=== PATIENT | male | born 1955 | race Caucasian/White ===

== ENCOUNTER 2020-11-28 13:33 | Inpatient (IN) | payer MEDICAID ==
[~2020-11-28] VITALS: Ht 167.6 cm; Wt 68.0 kg
--- NOTE | 2020-11-28 13:51 | NUR ---
pt [facility]ra from the streets to er bed 14. bystander called for pt. per ems report, pt was staying outside a stablishment for the past 5 days. today patient was c/o eing weak and unable to get up. pt also c/o l foot pain s/p droping a can of chilli to it. bg is 107 port captain and w/ stable vitals. awaiting md willson.
--- NOTE | 2020-11-28 14:30 | NUR ---
Pt states "Dropped a can of chili on my foot last night. Hurts/not able to walk on it". Asking for food and water- OK'd by
--- NOTE | 2020-11-28 14:35 | NUR ---
dr camarillo at bedside for eval.
--- NOTE | 2020-11-28 15:49 | NUR ---
labour market economist at bedside for blood draw.
[2020-11-28 15:55] LABS: BASOPHILS # (AUTO) 0.1 /CMM (0.0-0.2); BASOPHILS % (AUTO) 0.6 % (0.0-2.0); HEMATOCRIT 40 % (39-51); HEMOGLOBIN 12.8 g/dL (13.5-17.5); LYMPHOCYTES # (AUTO) 0.6 /CMM (0.8-4.8); LYMPHOCYTES % (AUTO) 2.8 % (20.0-44.0); MEAN CORPUSCULAR HGB CONC 32 g/dl (31.0-36.0); MEAN CORPUSCULAR VOLUME 92 fL (80-96); MONOCYTES # (AUTO) 0.7 /CMM (0.1-1.30); MONOCYTES % (AUTO) 3.3 % (2.0-12.0); NEUTROPHILS # (AUTO) 21.1 /CMM (1.8-8.9); NEUTROPHILS % (AUTO) 93.3 % (43.0-81.0); PLATELET COUNT (AUTO) 76 /CMM (150-450); RED BLOOD CELL COUNT(AUTO) 4.35 MIL/uL (4.5-6.0); WHITE BLOOD COUNT (AUTO) 22.6 K/uL (4.3-11.0)
[2020-11-28 16:16] LABS: CALCIUM, SERUM 7.4 mg/dL (8.5-10.1); CREATININE 5.5 mg/dL (0.6-1.3)
--- NOTE | 2020-11-28 16:56 | NUR ---
unable to provide urine sample at this time. urinal left at bedside.
[2020-11-28] MEDS ORDERED: IV NS 0.9% 1,000 ML BAG IV ONE (17:00)
--- NOTE | 2020-11-28 17:00 | NUR ---
Covid negative Per Lab personnel
[2020-11-28 17:11] LABS: ALANINE AMINOTRANSFERASE 1110 U/L (12-78); ALBUMIN 2.4 g/dL (3.4-5.0); ALKALINE PHOSPHATASE 230 U/L (46-116); ASPARTATE AMINOTRANSFERASE 613 U/L (15-37); BILIRUBIN,DIRECT 0.8 mg/dL (0.0-0.2); BILIRUBIN,TOTAL 1.2 mg/dL (0.2-1.0); CALCIUM, SERUM 7.4 mg/dL (8.5-10.1); CARBON DIOXIDE 15 mmol/L (21-32); CHLORIDE 101 mmol/L (98-107); CREATININE 5.5 mg/dL (0.6-1.3); GLUCOSE 110 mg/dL (74-106); SODIUM SERUM 134 mmol/L (136-145); TOTAL PROTEIN, SERUM 6.4 g/dL (6.4-8.2)
[2020-11-28 17:15] LABS: POTASSIUM 6.2 mmol/L (3.5-5.1); UREA NITROGEN, BLOOD 170 mg/dL (7-18)
--- NOTE | 2020-11-28 17:28 | NUR ---
CALLED NURSING SUP FOR TELE BED.
[2020-11-28] MEDS ORDERED: VANCOMYCIN 1 GM in IV D5W 250 ML IV ONE (17:30)
[2020-11-28] MEDS ORDERED: CEFEPIME 1 GM in IV D5W 50 ML IV ONE (17:30)
--- NOTE | 2020-11-28 18:12 | NUR ---
NURSING SUP GAVE 115-1 TELE.
[2020-11-28 18:19] LABS: BILIRUBIN,URINE Negative (NEGATIVE); COLOR,URINE DARK YELLOW (YELLOW); LEUKOCYTE ESTERASE ,URINE Negative (NEGATIVE); NITRITE, URINE Negative (NEGATIVE); PH,URINE 5.5 (5.0-8.0); PROTEIN,URINE 100 mg/dl (NEGATIVE); UGLUCOSE Negative (NEGATIVE); UROBILINOGEN,URINE 0.2 EU/dL (0.2)
--- NOTE | 2020-11-28 18:23 | NUR ---
report given to markus munoz. awaiting transfer to floor.
[2020-11-28 18:34] LABS: BACTERIA,URINE Few /HPF (None Seen); SQUAMOUS EPITHELIAL CELL,UR Few /HPF (None Seen); URINE AMORPHOUS URATE Moderate /HPF (None Seen)
[2020-11-28] MEDS ORDERED: IV NS 0.9% 100 ML BAG IV ONE (19:00)
[2020-11-28] MEDS ORDERED: INSULIN REGULAR, HUMAN 100 UNIT/ML 10 ML VIAL ONE (19:28)
[2020-11-28] MEDS ORDERED: DEXTROSE 50%-WATER 50 ML DISP.SYRIN ONE (19:28)
[2020-11-28] MEDS ORDERED: DEXTROSE 50%-WATER 50 ML DISP.SYRIN IV ONE (19:30)
[2020-11-28] MEDS ORDERED: HEPARIN INFUSION/D5W 500 ML IV ONE (19:30)
[2020-11-28] MEDS ORDERED: INSULIN REGULAR, HUMAN 100 UNIT/ML 10 ML VIAL IV ONE (19:30)
[2020-11-28] MEDS ORDERED: SODIUM POLYSTYRENE SULFONATE 15 G/60 ML BOTTLE PO ONE ×2 (19:30→22:00)
--- NOTE | 2020-11-28 19:50 | NUR ---
RN OPENING NOTE RECEIVED PT FROM BECKY, FROM ER. PT IS A/O X 1-2 VERY CONFUSED AND FORGETFUL, SOMEWHAT DROWSY. PT NEEDS TO BE REMINDED AND REORIENTED. PT O2 SAT UPON ADMISSION LOW IN 85-88, PLACED ON NC. O2 SAT NOW 92. IV SITES BOTH FLUSHED ASEPTICALLY. SKIN INTACT. PT SAYS LEFT FOOT HURTS, DOES NOT REQUEST ANY MEDICATION OR ICE, AT THIS TIME JUST TO LEAVE IT ALONE. SAFETY MEASURES IN PLACE. HOB ELEVATED BED LOCKED IN LOWEST POSITION WITH ALARM ON. SIDE RAILS UP X2 CALL LIGHT WITHIN REACH. WILL CONT TO MONITOR
[2020-11-28 20:00] VITALS: BP_SYST 134; BP_SYST 141; BP_DIAS 88; BP_DIAS 89
[2020-11-28 20:42] LABS: C-REACTIVE PROTEIN 14.3 mg/dL (0.0-0.9)
[2020-11-28] MEDS ORDERED: HEPARIN SODIUM, PORCINE 5000 UNITS/1 ML VIAL IV ONE (21:30)
--- NOTE | 2020-11-28 21:30 | NUR ---
2130 CRITICAL LACTIC ACID 3.[address] HARPER WITH ORDERS TO REPEAT TEST IN AM. DR HARPER ALSO ORDERED AM LABS. ORDER NOTED AND CARRIED OUT.
[2020-11-28] MEDS: ASPIRIN 81 MG TAB.CHEW PO SCH (21:52)
[2020-11-28] MEDS: HEPARIN INFUSION/D5W 500 ML IV PRN (21:58)
[2020-11-28] MEDS ORDERED: MAG HYDROX/AL HYDROX/SIMETH 30 ML UDC PO PRN (22:00)
[2020-11-28] MEDS ORDERED: ACETAMINOPHEN 325 MG TABLET PO PRN (22:00)
[2020-11-28] MEDS ORDERED: MORPHINE SULFATE INJ 2 MG/ML DISP.SYRIN IV PRN (22:00)
--- NOTE | 2020-11-28 23:00 | NUR ---
PT PULLING OFF NASAL CANNULA AND ATTEMPTING TO PULL IV LINES/EQUIPMENT DESPITE REORIENTATION HIDING LINES EDUCATION. SOFT RONEN WRIST RESTRAINTS APPLIED, MD HARPER AWARE. WILL CONT TO MONITOR CLOSELY. ENAMORADO CATH PLACED USING STERILE TECHNIQUE, PER MEREDITH STRICT I/O MONITORING IN PLACE.
--- NOTE | 2020-11-28 23:01 | NUR ---
PT WAS PREVIOUSLY GIVEN INSULIN AND D50 FOR HYPERKALEMIA, RECHECK ON BLOOD SUGAR IS 160 AT THIS TIME WILL CONT TO MONITOR
[2020-11-29] VITALS: BP 123/95
[2020-11-29 00:13] LABS: EOSINOPHILS % (AUTO) 9.8 % (0.0-6.0); HEMATOCRIT 39 % (39-51); HEMOGLOBIN 12.1 g/dL (13.5-17.5); LYMPHOCYTES # (AUTO) 0.6 /CMM (0.8-4.8); LYMPHOCYTES % (AUTO) 2.7 % (20.0-44.0); MEAN CORPUSCULAR HGB CONC 32 g/dl (31.0-36.0); MEAN CORPUSCULAR VOLUME 91 fL (80-96); MONOCYTES # (AUTO) 19.2 /CMM (0.1-1.30); MONOCYTES % (AUTO) 85.9 % (2.0-12.0); NEUTROPHILS # (AUTO) 0.4 /CMM (1.8-8.9); NEUTROPHILS % (AUTO) 1.6 % (43.0-81.0); PLATELET COUNT (AUTO) 83 /CMM (150-450); RED BLOOD CELL COUNT(AUTO) 4.22 MIL/uL (4.5-6.0); WHITE BLOOD COUNT (AUTO) 22.3 K/uL (4.3-11.0)
[2020-11-29 04:00] VITALS: BP 111/86
[2020-11-29 04:08] LABS: BASOPHILS # (AUTO) 0.3 /CMM (0.0-0.2); BASOPHILS % (AUTO) 1.3 % (0.0-2.0); EOSINOPHILS % (AUTO) 0.1 % (0.0-6.0); HEMATOCRIT 36 % (39-51); HEMOGLOBIN 11.6 g/dL (13.5-17.5); LYMPHOCYTES # (AUTO) 0.6 /CMM (0.8-4.8); LYMPHOCYTES % (AUTO) 2.8 % (20.0-44.0); MEAN CORPUSCULAR HGB CONC 33 g/dl (31.0-36.0); MEAN CORPUSCULAR VOLUME 89 fL (80-96); MONOCYTES # (AUTO) 1.1 /CMM (0.1-1.30); MONOCYTES % (AUTO) 5.1 % (2.0-12.0); NEUTROPHILS # (AUTO) 18.6 /CMM (1.8-8.9); NEUTROPHILS % (AUTO) 90.7 % (43.0-81.0); PLATELET COUNT (AUTO) 91 /CMM (150-450); WHITE BLOOD COUNT (AUTO) 20.5 K/uL (4.3-11.0)
[2020-11-29 04:30] LABS: LYMPHOCYTES % (MANUAL) 3 % (16-48); MONOCYTES % (MANUAL) 6 % (0-11.0); NEUTROPHILS % (MANUAL) 91 (42-76)
[2020-11-29 04:38] LABS: ALBUMIN 2.1 g/dL (3.4-5.0); BILIRUBIN,DIRECT 0.5 mg/dL (0.0-0.2); BILIRUBIN,TOTAL 0.9 mg/dL (0.2-1.0); CALCIUM, SERUM 6.9 mg/dL (8.5-10.1); CREATININE 5.8 mg/dL (0.6-1.3); MAGNESIUM 3.1 mg/dL (1.8-2.4); POTASSIUM 5.6 mmol/L (3.5-5.1); TOTAL PROTEIN, SERUM 5.7 g/dL (6.4-8.2)
[2020-11-29 04:40] LABS: PHOSPHORUS 9.7 mg/dL (2.5-4.9); THYROID STIMULATING HORMONE 5.256 uIU/mL (0.358-3.74)
--- NOTE | 2020-11-29 04:50 | NUR ---
0450 CRITICAL LACTIC 2.1, TROPONIN 10.16, BUN 166, AND PHOSPHORUS 9.[address] HARPER WITH NO ORDER OBTAINED.
[2020-11-29] MEDS: IV NS 0.9% 1,000 ML IV PRN ×3 (05:09→23:09)
--- NOTE | 2020-11-29 06:35 | NUR ---
RN CLOSING NOTES PT DID NOT REST WELL THROUGHOUT THE NIGHT. C/O HUNGER AND THIRST ALTHOUGH PLACED ON NPO EXCEPT MEDS. EDUCATION PT MULTIPLE TIMES, BUT CONFUSED AND FORGETS. PT IS ON ROOM AIR SATURATING AT 96%. NO SOB OR RESP DISTRESS NOTED. PT ON HEPARIN DRIP 985 UNITS/HR. TITRATING ODELL ACS PROTOCOL. ALSO ON IVF NS STILL AT 125CC/HR. MINIMAL PINK TINGED URINE STARTED TOWARDS END OF SHIFT, NOTIFIED CHARGE, WILL ENDORSE TO AM NURSE. PT DENIES PAIN. SAFETY MEASURES IN PLACE., HOB ELEVATED BED LOCKED IN LOWEST POSITION WITH ALARM ON. SIDE RAILS UP X2 CALL LIGHT WITHIN REACH. WILL ENDORSE TO DAY SHIFT NURSE FOR CONTINUATION OF CARE. Addendum: 11/29/20 at 0642 by STAR SMITH RN PT STILL HAS SOFT RONEN WRIST RESTRAINTS ON CIRCULATION CHECKED SKIN CHECKED Addendum: 11/29/20 at 0652 by STAR SMITH RN PT AFEBRILE. STILL HAS SOFT RONEN WRIST RESTRAINTS SKIN AND CIRCULATION CHECKED.
--- NOTE | 2020-11-29 07:50 | NUR ---
RN OPENING NOTE PATIENT IS IN BED WITH HOB AT SEMI FOWLERS POSITION. PATIENT IS AOX2. PATIENT IS CURRENTLY ON ROOM AIR WITH NO SIGNS OF LABORED BREATHING. ENAMORADO CATHETER IS IN PLACE. SKIN IS INTACT. LAC #18 AND RAC #18 ARE PATENT, INTACT, AND HAVE NO SIGNS OF INFILTRATION. BED IS LOCKED IN THE LOWEST POSITION, CALL PALMER WITHIN REACH, 3 GUARD RAILS RAISED, AND ALL HOSPITAL SAFETY PRECAUTIONS ARE BEING FOLLOWED. WILL CONTINUE TO MONITOR THROUGHOUT SHIFT.
[2020-11-29 08:00] VITALS: BP 114/90
[2020-11-29] MEDS: PANTOPRAZOLE 40 MG TABLET.DR PO SCH (08:02)
[2020-11-29] MEDS: ASPIRIN 81 MG TAB.CHEW PO SCH (08:02)
[2020-11-29] MEDS ORDERED: ASPIRIN EC 81 MG TABLET.DR PO SCH (09:00)
--- NOTE | 2020-11-29 11:00 | NUR ---
STREET CAR MECHANIC NOTE INCREASED O2 TO 6L DUE TO SATURATION IN MID 80S. WILL CONTINUE TO MONITOR.
[2020-11-29] MEDS ORDERED: SODIUM POLYSTYRENE SULFONATE 15 G/60 ML BOTTLE PO ONE (11:30)
[2020-11-29 12:00] VITALS: BP 129/94
--- NOTE | 2020-11-29 12:02 | NUR ---
HAND BOOTMAKER NOTE DECREASED O2 TO 3L NC. SATURATION CURRENTLY AT 95%. WILL CONTINUE TO MONITOR.
--- NOTE | 2020-11-29 12:43 | NUR ---
"SS consult requested for homelessness. However, the pt.'s Covid PCR results pending. SW spoke to the pt.'s nurse, who stated that pt. most likely will not be discharged today. SW will follow up at a later time to assess pt. SW left homeless waiver & he following homeless resources in the pt.'s chart. Resources provided include: Substance Abuse resources provided included: [facility] Substance Abuse Self-Helpline ([facility]) ; CRI -HELP [address] [facility]. [place] [id number] ; [facility] [address] [facility] [address] ; [facility] [address] [facility] [id number] ; [facility] [address] [facility] [address] ; [facility] [address] Armani Aval[facility] [address] ; [facility] 906 [facility] [id number] ; [facility] Substance Abuse Helpline([facility])-[facility] ; [facility] ; [facility]; [facility] [place]; [facility] Armani Avalos; [facility] [place]; Mill[facility] Bridg[facility] [place]; [facility]; [facility], [facility]. [place]; Alcoholics Anonymous -SFV; Uj-Igia-Jkltier ; Marijuana Anonymous -SFV; Narcotics Anonymous www.na.org; Year-round shelters: [facility] [address] [place] [address] ; [facility] [place] [address] [place] [address]; [facility] [address] [facility] [address] Winter Shelters: Jayesh Carpenter [place] Provider: Kemi [facility] [place] Address: [address] [place], [address] # of Beds: 47 Population Served: [facility] [place] 6 | [facility] Melissa Nguyen [place] Provider: [facility] Address: [address], [address] # of Beds: 66 Population Served: [facility] [place] [facility] [place] Jumpido [place] Provider: First to Serve Address: [address] [facility], [address] # of Beds: 56 Population Served: [facility] [place] [facility] [place] Avtar [place] Provider: [facility] Address: [address] [place] [address], [address] # of Beds: 49 Population Served: [facility] [place] [facility] 8 | [facility] Provider: First to Serve Address: [address] [facility], [address] # of Beds: 37 Population Served: [facility] [place] [facility] [place] Hygiene: [facility]: [address] [address] kerryS[facility] ; [place] [facility] [address] [facility] ; [facility] [address] [facility] . Food Resources: [place] [facility] at [facility]- [address] [facility] [place]. [place]; Meet Each Need with Dignity ([facility]) [address] [address] [place]; [facility] [address] [facility]; [facility] 4588 [facility] [place]. Mental Health resources provided: [facility] [address] [place] [address] ; [facility] [address] [facility] [address], [place] [address] ; [facility] [address] [place] [address] ; [facility] [address] [place] [address] Healthcare Clinics: [facility] [address] [facility], [address] [place]. [place] ; [facility] [address] [facility] [address] [place] [address]; [facility] [address] [facility] [address] [phone]"
--- NOTE | 2020-11-29 13:00 | NUR ---
LUGGAGE REPAIRER NOTE HEPARIN DRIP RATE INCREASED TO 1100 ML/HR PER PROTOCOL. WILL CONTINUE TO MONITOR.
--- NOTE | 2020-11-29 13:40 | NUR ---
SEAMARK ADVANCED OPERATOR MAINTAINER NOTE PLACED PATIENT ON ROOM AIR. TOLERATING WELL AND SATURATING 95%. WILL CONTINUE TO MONITOR.
[2020-11-29] MEDS: METRONIDAZOLE 500MG/ NS 100ML 500 MG in PREMIX 1 EA IV SCH ×2 (14:51→21:07)
[2020-11-29 16:00] VITALS: BP 129/96
[2020-11-29] MEDS: CEFEPIME 1 GM in IV D5W 50 ML IV SCH (16:23)
--- NOTE | 2020-11-29 18:32 | NUR ---
RN CLOSING NOTE PATIENT IS IN BED WITH HOB AT SEMI FOWLERS POSITION. PATIENT IS AOX2 AND CONFUSED. PATIENT IS ON ROOM AIR WITH NO SIGNS OF LABORED BREATHING. ENAMORADO CATHETER IS IN PLACE. BILATERAL RESTRAINTS ARE APPLIED. LAC#18 AND RAC #20 ARE PATENT, INTACT, AND HAVE NO SIGNS OF INFILTRATION. SKIN IS INTACT. WILL ENDORSE TO COMPOUND FINISHER RN.
[2020-11-29 20:00] VITALS: BP 125/90
[2020-11-29] MEDS: HYDROCODONE/APAP 5/325MG TABLET PO PRN (21:45)
[2020-11-29] MEDS: HEPARIN INFUSION/D5W 500 ML IV PRN (21:48)
[2020-11-29] MEDS: ZOLPIDEM TARTRATE 5 MG TABLET PO PRN (22:41)
[2020-11-30] VITALS: BP 133/94
--- NOTE | 2020-11-30 00:07 | NUR ---
RN NOTE PATIENT A/O X1/2 FORGETFUL AND CONFUSED. RESTLESS AT THIS TIME AND YELLING. TELE MONITOR ON, SR 80'S. NO SOB OR ANY RESPIRATORY DISTRESS. ON ROOM AIR, O2 92%. ENAMORADO CATH INTACT AND DRAINING ROS URINE TO GRAVITY. WITH LAC AND RAC PATENT AND INTACT. ON NS @125 ML/HR AND HEP DRIP 1100 ML/HR. SAFETY MEASURES IN PLACE. WILL CONTINUE TO MONITOR.
[2020-11-30 04:00] VITALS: BP 137/97
[2020-11-30] MEDS: METRONIDAZOLE 500MG/ NS 100ML 500 MG in PREMIX 1 EA IV SCH ×3 (05:07→20:34)
[2020-11-30 06:57] LABS: BASOPHILS % (AUTO) 0.2 % (0.0-2.0); EOSINOPHILS % (AUTO) 0.1 % (0.0-6.0); HEMATOCRIT 37 % (39-51); LYMPHOCYTES # (AUTO) 0.4 /CMM (0.8-4.8); LYMPHOCYTES % (AUTO) 2.3 % (20.0-44.0); MEAN CORPUSCULAR HGB CONC 33 g/dl (31.0-36.0); MEAN CORPUSCULAR VOLUME 90 fL (80-96); MONOCYTES # (AUTO) 0.7 /CMM (0.1-1.30); MONOCYTES % (AUTO) 3.9 % (2.0-12.0); NEUTROPHILS # (AUTO) 17.8 /CMM (1.8-8.9); NEUTROPHILS % (AUTO) 93.5 % (43.0-81.0); PLATELET COUNT (AUTO) 116 /CMM (150-450); RED BLOOD CELL COUNT(AUTO) 4.05 MIL/uL (4.5-6.0); WHITE BLOOD COUNT (AUTO) 19.1 K/uL (4.3-11.0)
[2020-11-30 07:23] LABS: CALCIUM, SERUM 6.3 mg/dL (8.5-10.1); CREATININE 5.4 mg/dL (0.6-1.3)
[2020-11-30 07:26] LABS: FERRITIN 131 ng/mL (8-388)
[2020-11-30 07:34] LABS: CREATINE KINASE, TOTAL 6915 U/L (39-308)
--- NOTE | 2020-11-30 07:36 | NUR ---
ms rn received on bed, awake,very agitated, shouting all the time. patient on heparin drip at 1100units/hour infusing well. denies pain at this time,will monitor patient.
[2020-11-30 07:37] LABS: POTASSIUM 2.7 mmol/L (3.5-5.1)
[2020-11-30] MEDS: HEPARIN INFUSION/D5W 500 ML IV PRN ×2 (07:46→20:14)
--- NOTE | 2020-11-30 07:49 | NUR ---
RN NOTE PATIENT A/O X1/2 FORGETFUL AND CONFUSED. RESTLESS AT THIS TIME AND YELLING. TELE MONITOR ON, SR 80'S. NO SOB OR ANY RESPIRATORY DISTRESS. ON ROOM AIR, O2 90%. ENAMORADO CATH INTACT AND DRAINING ROS URINE TO GRAVITY. WITH LAC AND RAC PATENT AND INTACT. ON NS @125 ML/HR AND HEP DRIP 1200 ML/HR. SAFETY MEASURES IN PLACE. WILL ENDORSE TO ONCOMING SHIFT.
[2020-11-30 08:00] VITALS: BP 144/100
--- NOTE | 2020-11-30 08:00 | NUR ---
ms rn patient yelling so loud, wants to eat at this time, will get diet order, pt still on npo for swallow eval today.
--- NOTE | 2020-11-30 08:17 | NUR ---
patient screaming,i want to eat,speech swallow eval pending.[facility] made aware.per franki ok to start feeding pt.
--- NOTE | 2020-11-30 08:30 | NUR ---
ms rn received a critical level of k-2.7 at this time, franki is aware, want me to call dr. millan for order.
--- NOTE | 2020-11-30 09:00 | NUR ---
ms rn swallow eval done w/ recommendation, patient can eat now.
[2020-11-30] MEDS: PANTOPRAZOLE 40 MG TABLET.DR PO SCH (09:26)
[2020-11-30] MEDS: ASPIRIN 81 MG TAB.CHEW PO SCH (09:26)
[2020-11-30] MEDS: HYDROCODONE/APAP 5/325MG TABLET PO PRN (09:27)
[2020-11-30] MEDS: IV NS 0.9% 1,000 ML IV PRN ×2 (09:27→19:59)
[2020-11-30] MEDS: QUETIAPINE FUMARATE 25 MG TABLET PO SCH ×2 (11:47→17:00)
--- NOTE | 2020-11-30 11:50 | NUR ---
ms rn dr. sanabria ordered k po for patient.
[2020-11-30 12:00] VITALS: BP 110/72
--- NOTE | 2020-11-30 12:00 | NUR ---
ms munoz ptt-48.2-no change at heparin rate, will recheck ptt in am.
--- NOTE | 2020-11-30 12:33 | NUR ---
SW Note: SW called & spoke with DARINEL Nurse. The pt. is not yet medically clear. Per EMR, the pt. is confused A&OX1. Pt. is on Seroquel. SW to assess pt. when he is more oriented. Pt. has yet to provide a point of contact. SW will be available as needed. SW will collaborate with IDT to form a safe & proper discharge plan.
[2020-11-30] MEDS ORDERED: POTASSIUM CHLORIDE 20 MEQ TAB.PRT.SR PO ONE (13:00)
[2020-11-30] MEDS ORDERED: POTASSIUM CHLORIDE 20 MEQ TAB.PRT.SR PO SCH (13:00)
[2020-11-30 16:00] VITALS: BP 109/72
[2020-11-30] MEDS: CEFEPIME 1 GM in IV D5W 50 ML IV SCH (16:40)
[2020-11-30] MEDS ORDERED: VANCOMYCIN 0.75 GM in IV D5W 250 ML IV SCH (18:00)
[2020-11-30] MEDS: VANCOMYCIN 1 GM in IV D5W 250 ML IV SCH (18:51)
--- NOTE | 2020-11-30 19:29 | NUR ---
ms rn on bed, still sleeping, seroquel at 1700 held.
--- NOTE | 2020-11-30 19:30 | NUR ---
RN OPENING NOTE, RECEIVED PATIENT IN BED RESTING EYE CLOSED CONFUSED,VERBALLY RESPONSIVE,ON 3L OXYGEN VIA NASAL CANNULA,O2:95% IV SITE IS ON LEFT AC AND RIGHT AC INTACT PATIENT ON HEPARIN DRIP,AND IV HYDRATION NORMAL SALINE 0.9% 125CC/HR,ENAMORADO CATHETER IN PLACE,URINE DRAINING YELLOW/CLEAR, BED IN LOW POSITION AND LOCKED,SAFETY MEASURE IMPLEMENT,CONTINUE TO MONITOR.
[2020-11-30 20:00] VITALS: BP 109/78
[2020-12-01] VITALS: BP 117/74
[2020-12-01] MEDS: HYDROCODONE/APAP 5/325MG TABLET PO PRN ×2 (02:42→23:41)
[2020-12-01 04:00] VITALS: BP 123/82
[2020-12-01] MEDS: METRONIDAZOLE 500MG/ NS 100ML 500 MG in PREMIX 1 EA IV SCH ×3 (04:36→20:33)
--- NOTE | 2020-12-01 05:17 | NUR ---
RN NOTE RECEIVED CRITICAL LAB RESULTS FROM [facility] CREATINE KINASE CK,MB ON 11/28/20 343.0 AND ON 11/30/[address] MIRANDA CONTINUE TO MONITOR.
--- NOTE | 2020-12-01 05:33 | NUR ---
RN NOTE DR MIRANDA CALLED BACK WITH NO NEW ORDER FOR CRITICAL LAB CREATINE KINASE CK MB, CONTINUE TO MONITOR.
[2020-12-01] MEDS: IV NS 0.9% 1,000 ML IV PRN (06:28)
--- NOTE | 2020-12-01 06:40 | NUR ---
RN CLOSING NOTE PATIENT REMAINS ON ALERT ORIETNEDX2 VERBALLY RESPONSIVE CONFUSED ON 3L OXYGEN VIA NASAL CANNULA, O2:95% CONTINUE ON HEPARIN DRIP AND IV HYDRATION NS 0.9% 125CC/HR IV SITE IS ON LEFT AND RIGHT AC INTACT PATENT,ENAMORADO CATHETER IN PLACE.ALL DUE MEDS GIVEN MD ORDERED KEPT CLEAN AND DRY,KEPT COMFORTABLE ALL NEEDS MET,ENDORSE NEXT COMING SHIFT FOR CONTINUATION OF CARE.
[2020-12-01 06:41] LABS: BASOPHILS # (AUTO) 0.1 /CMM (0.0-0.2); BASOPHILS % (AUTO) 0.4 % (0.0-2.0); EOSINOPHILS % (AUTO) 0.5 % (0.0-6.0); HEMATOCRIT 34 % (39-51); HEMOGLOBIN 11.2 g/dL (13.5-17.5); LYMPHOCYTES # (AUTO) 0.7 /CMM (0.8-4.8); LYMPHOCYTES % (AUTO) 3.6 % (20.0-44.0); MEAN CORPUSCULAR HGB CONC 33 g/dl (31.0-36.0); MEAN CORPUSCULAR VOLUME 90 fL (80-96); MONOCYTES # (AUTO) 1.3 /CMM (0.1-1.30); MONOCYTES % (AUTO) 6.7 % (2.0-12.0); NEUTROPHILS # (AUTO) 17.3 /CMM (1.8-8.9); NEUTROPHILS % (AUTO) 88.8 % (43.0-81.0); PLATELET COUNT (AUTO) 106 /CMM (150-450); RED BLOOD CELL COUNT(AUTO) 3.85 MIL/uL (4.5-6.0); WHITE BLOOD COUNT (AUTO) 19.5 K/uL (4.3-11.0)
[2020-12-01 06:58] LABS: CALCIUM, SERUM 6.2 mg/dL (8.5-10.1); CREATININE 5.5 mg/dL (0.6-1.3)
--- NOTE | 2020-12-01 06:59 | NUR ---
RN NOTE RECEIVED CRITICAL LAB VALUE TROPONINE 4.[address] MIRANDA.
[2020-12-01 07:01] LABS: POTASSIUM 2.7 mmol/L (3.5-5.1)
--- NOTE | 2020-12-01 07:09 | NUR ---
RN NOTE RECEIVED CRITICAL LAB VALUE POTASSIUM LEVEL 2.7 AND BUN IS [address] MIRANDA.
--- NOTE | 2020-12-01 07:30 | NUR ---
PT RECEIVED RESTING COMFORTABLY IN BED. NO S/S OR C/O PAIN OR DISTRESS NOTED. SIDERAILS UP X2, CALL LIGHT LEFT WITHIN REACH. WILL CONTINUE PLAN OF CARE.
[2020-12-01 08:00] VITALS: BP 141/93
--- NOTE | 2020-12-01 08:23 | NUR ---
patient complaining extreme pain on foot,seen and evaluated by wound nurse md parker made aware,no new orders,continue heparin drip and pain meds as ordered.
--- NOTE | 2020-12-01 08:24 | NUR ---
WOUND CARE CONSULT: PT SEEN ON REQUEST OF ENROBER TO EVALUATE LEFT FOOT. PT SCREAMING AND COMPLAINING OF LEFT FOOT PAIN. LEFT DISTAL FOOT IS DISCOLORED (DARK PURPLE) AND EDEMA NOTED. PEDAL PULSE PALPABLE BUT PT CANNOT TOLERATE ANYONE TOUCHING HIS FOOT. PHOTOS WERE TAKEN AND DISCUSSED WITH RONY CHAUDHRY, WHO WAS NOTIFIED BY ENROBER. PT DID NOT TURN FOR FULL SKIN ASSESSMENT. PT AGITATED AND SCREAMING. ENAMORADO CATH NOTED.
--- NOTE | 2020-12-01 08:53 | NUR ---
dr. siegel notified patient abnormal labs lytes ,seen and examined patient.
[2020-12-01] MEDS: ASPIRIN 81 MG TAB.CHEW PO SCH (08:54)
[2020-12-01] MEDS: QUETIAPINE FUMARATE 25 MG TABLET PO SCH ×2 (08:54→16:36)
[2020-12-01] MEDS: PANTOPRAZOLE 40 MG TABLET.DR PO SCH (08:54)
--- NOTE | 2020-12-01 09:25 | NUR ---
PATIENT STILL SCREAMING DESPITE 2MG IVP MORPHINE,STILL COMPLAINING OF SEVERE PAIN LEFT FOOT,RONY CHAUDHRY NOTIFIED AND INCREASE DOSE TO 4MG AND OK TO GIVE NEW DOSE NOW.
[2020-12-01] MEDS ORDERED: MORPHINE SULFATE INJ 4 MG/ML DISP.SYRIN IV PRN (09:30)
[2020-12-01] MEDS: HYDROMORPHONE 1 MG/1 ML DISP.SYRIN IV PRN ×2 (09:45→22:07)
--- NOTE | 2020-12-01 09:48 | NUR ---
PATIENT SCREAMING AND CURSING NURSES USING F WORDS. RONY CHAUDHRY CLIENT STRATEGIST AT BEDSIDE AND GAVE NEW ORDERS TO INCREASE SEROQUEL TO 25MG AND PRN PO ATIVAN IMG Q 8 HRS FOR AGITATION,WILL CONTINUE TO MONITOR PATIENT.EXTRACT WRINGER AT BEDSIDE DOING DOPPLER ORDERED.
--- NOTE | 2020-12-01 09:50 | NUR ---
PER MD HANLEY TO RENEW RESTRAINT FOR SAFETY,PT. TRYING TO REMOVE LINE,WILL CONTINUE TO MONITOR..
[2020-12-01] MEDS: POTASSIUM CHLORIDE 20 MEQ TAB.PRT.SR PO SCH ×5 (10:14→17:36)
--- NOTE | 2020-12-01 10:14 | NUR ---
PT. CALM DOWN POST DILAUDID GIVEN.
--- NOTE | 2020-12-01 10:42 | NUR ---
ULTRASOUND DOPPLER RESULT RELAYED TO RONY CHAUDHRY PT. W/ POSITIVE OCCLUSION.
[2020-12-01 12:00] VITALS: BP 129/87
--- NOTE | 2020-12-01 13:22 | NUR ---
per oliverio picc line nurse ok to use picc line.
[2020-12-01 15:42] LABS: BASOPHILS # (AUTO) 0.2 /CMM (0.0-0.2); BASOPHILS % (AUTO) 0.9 % (0.0-2.0); EOSINOPHILS % (AUTO) 0.7 % (0.0-6.0); HEMATOCRIT 34 % (39-51); HEMOGLOBIN 10.9 g/dL (13.5-17.5); LYMPHOCYTES # (AUTO) 0.6 /CMM (0.8-4.8); LYMPHOCYTES % (AUTO) 2.9 % (20.0-44.0); MEAN CORPUSCULAR HGB CONC 32 g/dl (31.0-36.0); MEAN CORPUSCULAR VOLUME 89 fL (80-96); MONOCYTES # (AUTO) 1.3 /CMM (0.1-1.30); MONOCYTES % (AUTO) 6.3 % (2.0-12.0); NEUTROPHILS % (AUTO) 89.2 % (43.0-81.0); PLATELET COUNT (AUTO) 99 /CMM (150-450); RED BLOOD CELL COUNT(AUTO) 3.83 MIL/uL (4.5-6.0); WHITE BLOOD COUNT (AUTO) 21.3 K/uL (4.3-11.0)
[2020-12-01 16:00] VITALS: BP 126/96
--- NOTE | 2020-12-01 16:06 | NUR ---
DELVIN Note: SW attempted to follow up with this pt but the pt is not alert at this time. Pt appears to be oriented x1 and appears to be confused and disorganized. SW does not have the contact information for anyone to call regarding this pt at this time. SW will make another attempt the following day. Pt was provided with homeless resources earlier. SW will be involved and will collaborate with the pt and the MD regarding appropriate discharge planning.
[2020-12-01] MEDS: CEFEPIME 1 GM in IV D5W 50 ML IV SCH (16:36)
[2020-12-01 16:49] LABS: CALCIUM, SERUM 6.1 mg/dL (8.5-10.1); CREATININE 5.5 mg/dL (0.6-1.3)
[2020-12-01 17:23] LABS: EOSINOPHILS % (MANUAL) 1 % (0-4); LYMPHOCYTES % (MANUAL) 2 % (16-48); MONOCYTES % (MANUAL) 6 % (0-11.0); NEUTROPHILS % (MANUAL) 91 (42-76)
[2020-12-01] MEDS: LORAZEPAM 1 MG TABLET PO PRN (17:36)
--- NOTE | 2020-12-01 18:20 | NUR ---
CHANGE OF SHIFT REPORT PT RESTING COMFORTABLE IN BED. NO S/S OR C/O PAIN OR DISTRESS NOTED. SIDE RAILS UP X2, CALL LIGHT LEFT WITHIN REACH PT KEPT CLEAN, DRY, AND COMFORTABLE. NO SIGNIFICANT CHANGES SINCE PREVIOUS SHIFT. WILL GIVE REPORT TO DOMINIQUE MA.
--- NOTE | 2020-12-01 19:30 | NUR ---
TELE1 RN NOTES RECEIVED ON BED SLEEPING,AROUSABLE TO VERBAL STIMULI,BREATHING NON LABORED,O2 IN USED AT 3L/NC,RESTRAINTS IN USED ON LEFT WRIST FOR SAFETY,WITH ANUPAMA PICC LINE FOR MEDS,NS AT 125ML/HR RATE IN PROGRESS,ALONG WITH HEPARIN DRIP AT 24ML/HR RATE FOR HIGH TROPONIN AND COVID TOES.ISOLATION PENDING COVID PCR TEST RESULT.WILL CONTINUE TO MONITOR STATUS.
--- NOTE | 2020-12-01 19:45 | NUR ---
TELE1 RN NOTES NOTED GANGRENOUS LEFT BIG TOE NOTED.
[2020-12-01 20:00] VITALS: BP 149/89
--- NOTE | 2020-12-01 22:07 | NUR ---
TELE1 RN NOTES SCREAMING IN PAIN VIA LEFT FOOT,DILAUDID 1MG IVP GIVEN ORDERED FOR SEVERE PAIN
[2020-12-02] VITALS (7 sets, daily range): BP systolic 113–169; BP diastolic 51–89
[2020-12-02] MEDS: ZOLPIDEM TARTRATE 5 MG TABLET PO PRN (00:32)
[2020-12-02] MEDS: IV NS 0.9% 1,000 ML IV PRN ×3 (00:55→20:42)
[2020-12-02] MEDS: Z GUARD REMEDY 2 OZ OINT TP PRN (04:33)
[2020-12-02] MEDS: METRONIDAZOLE 500MG/ NS 100ML 500 MG in PREMIX 1 EA IV SCH ×2 (04:58→12:44)
--- NOTE | 2020-12-02 06:50 | NUR ---
TELE1 RN NOTES CALM AFTER GIVING DILAUDID FOR PAIN MANAGEMENT.IVF IN PROGRESS,HEPARIN DRIP REMAINS AT 24ML/HR RATE.IN NO ACUTE DISTRESS
[2020-12-02 07:00] LABS: CALCIUM, SERUM 6.8 mg/dL (8.5-10.1); CREATININE 5.1 mg/dL (0.6-1.3); POTASSIUM 3.4 mmol/L (3.5-5.1)
[2020-12-02 07:03] LABS: BASOPHILS % (AUTO) 0.2 % (0.0-2.0); EOSINOPHILS % (AUTO) 0.4 % (0.0-6.0); HEMATOCRIT 35 % (39-51); HEMOGLOBIN 11.4 g/dL (13.5-17.5); LYMPHOCYTES # (AUTO) 0.8 /CMM (0.8-4.8); LYMPHOCYTES % (AUTO) 3.4 % (20.0-44.0); MEAN CORPUSCULAR HGB CONC 32 g/dl (31.0-36.0); MEAN CORPUSCULAR VOLUME 89 fL (80-96); MONOCYTES # (AUTO) 1.5 /CMM (0.1-1.30); MONOCYTES % (AUTO) 6.4 % (2.0-12.0); NEUTROPHILS # (AUTO) 20.7 /CMM (1.8-8.9); NEUTROPHILS % (AUTO) 89.6 % (43.0-81.0); PLATELET COUNT (AUTO) 103 /CMM (150-450); RED BLOOD CELL COUNT(AUTO) 3.95 MIL/uL (4.5-6.0); WHITE BLOOD COUNT (AUTO) 23.1 K/uL (4.3-11.0)
--- NOTE | 2020-12-02 07:39 | NUR ---
SPEECH WRITER NOTE PATIENT IS IN BED AWAKE. A/O X4. NO ACUTE DISTRESS NOTED AT THIS TIME. PATIENT ON OXYGEN 3L/MIN VIA NASAL CANNULA, TOLERATING WELL. NO SOB NOTED, BREATHING EVEN NON LABORED. SAFETY MEASURES IN PLACE, BED LOCKED AND IN LOWEST POSITION, CALL LIGHT WITHIN REACH. ON TELEMONITOR SR ,RT UPPER ARM MID LINE IN PLACE AND FLUSHED WELL AND ON LT ARM HL IN PLACE AND FLUSHED WELL ON IVF ORDERED AND HEPARINDRIP ORDERED , ON SOFT REFRAIN TOLERATED, WILL CONT TO MONITOR PTT 68.4 PER HOSPITAL PROTOCOL CONT HEPARIN DRI ORDERED AT 1200 UNIT ,WILL CONT TO MONITOR
--- NOTE | 2020-12-02 08:00 | NUR ---
WINDER FIXER NOTE PTT 68.4 OK TO CONT SAME DOSE OF HEPARIN DRIP 1200 UNIT, PTT IN AM AT 0600
[2020-12-02] MEDS: ASPIRIN 81 MG TAB.CHEW PO SCH (09:20)
[2020-12-02] MEDS: QUETIAPINE FUMARATE 25 MG TABLET PO SCH ×2 (09:20→16:11)
[2020-12-02] MEDS: PANTOPRAZOLE 40 MG TABLET.DR PO SCH (09:20)
[2020-12-02 09:22] LABS: LYMPHOCYTES % (MANUAL) 5 % (16-48); MONOCYTES % (MANUAL) 5 % (0-11.0); NEUTROPHILS % (MANUAL) 90 (42-76)
[2020-12-02] MEDS: HYDROCODONE/APAP 5/325MG TABLET PO PRN (09:31)
--- NOTE | 2020-12-02 09:31 | NUR ---
TIMBER BUYER NOTE NORCO PO GIVEN ORDERED
[2020-12-02] MEDS: HYDROMORPHONE 1 MG/1 ML DISP.SYRIN IV PRN ×3 (10:18→21:36)
--- NOTE | 2020-12-02 11:00 | NUR ---
LOADER TECHNICIAN NOTE DR KIMBALL AT BEDSIDE AWARE THAT PATIENT STILL IN PAIN ,NO ORDER FOR ANGIO GRAM YET STATED THAT AWAIT FROM TRUCK RENTAL SERVICE ATTENDANT
--- NOTE | 2020-12-02 11:15 | NUR ---
CHIP MA NOTE DILAUDID 1 MG IV GIVEN ORDERED SATURATION 100% AT THIS TIME Addendum: 12/02/20 at 1118 by FRANCESCO CHERRY RN DR URIBE NOTIFIED THAT YUE HAS BLOODY SPUTUM NO NEW ORDER GIVEN AT THIS TIME WILL MONITOR
--- NOTE | 2020-12-02 12:51 | NUR ---
RETAIL WAREHOUSE SUPERVISOR NOTE AFTER DILAUDID GIVEN RESTING COMFORTABLY REFUSE TO HAVE LUNCH AT THIS TIME WILL MONITOR
--- NOTE | 2020-12-02 14:00 | NUR ---
FINANCE ANALYST NOTE SPOKE WITH DR HOLCOMB AREA DIRECTOR OF HOME HEALTH SALES ABUT PATIENT AND PLANNING ANGIOGRAM STATED THAT PATIENT STILL PENDING PCR FOR COVID STILL AWAITING FOR PROCEDURE
[2020-12-02] MEDS: CEFEPIME 1 GM in IV D5W 50 ML IV SCH (16:12)
[2020-12-02] MEDS: HEPARIN INFUSION/D5W 500 ML IV PRN (16:16)
--- NOTE | 2020-12-02 17:13 | NUR ---
FINISH PATCHER NOTE C\O PAIN AGAIN DILAUDID 1 MG IVP GIVEN SATURATION 95% CONT ON HEPARIN DRIP ORDERED
--- NOTE | 2020-12-02 18:34 | NUR ---
METAL CAN INSPECTOR NOTES PT IN BED REFUSING TO EAT, ON HEPARIN DRIP AND IV FLUID. DILAUDID GIVEN AT 1600. DR URIBE NOTIFIED THAT TROPONIN WAS 2.273. NO NEW ORDER GIVEN. AQUATIC ECOLOGIST SEEN PATIENT, POTASSIUM 3.4, BUN 135, CREATININE 5.1. BED IN LOW AND LOCKED POSITION, CALL LIGHT WITHIN REACH. WILL CONTINUE TO MONITOR
[2020-12-02] MEDS: VANCOMYCIN 1 GM in IV D5W 250 ML IV SCH (18:38)
--- NOTE | 2020-12-02 19:30 | NUR ---
RN OPENING NOTES: RECEIVED PT A/OX 1-2 IN BED RESTING COMFORTABLY. PATIENT IN NO S/SX OF ACUTE DISTRESS AT THIS TIME. NO SOB NOTED. PATIENT'S BREATHING IS EVEN AND UNLABORED. PATIENT IS ON 3L OF OXYGEN VIA NC; TOLERATING WELL. PATIENT ON TELE MONITORING READING SINUS RHYTHM HR IS @80s AT THE TIME OF RECEIVED. PATIENT ON RENAL DIET; TOLERATES WELL. NOTED IV SITE ON R UA PICC LINE, R AC #18 , L AC #18; PATENT, INTACT AND FLUSHING WELL; NO S/S OF INFECTION OR INFILTRATION. WITH IV FLUID RUNNING ORDERED. ENAMORADO CATH IN PLACE, MODERATE URINE OUTPUT NOTED. BILATERAL SOFT WRIST RESTRAINTS IN PLACE, ASSESSED PER PROTOCOL. SAFETY MEASURES HAVE BEEN PROVIDED AND IMPLEMENTED. PATIENT BED ALARM IS ON. HEAD OF BED ELEVATED. BED IS LOCKED, IN LOWEST POSITION AND SIDE RAILS UP. CALL LIGHT WITHIN REACH OF THE PATIENT. APPLICABLE ISOLATION PRECAUTIONS IN PLACE. WILL CONTINUE TO MONITOR AND REASSESS FOR ANY CHANGES AND WILL CARRY OUT ANY ONGOING AND ACTIVE MD ORDER.
--- NOTE | 2020-12-02 21:35 | NUR ---
RN NOTES PATIENT COMPLAINTS OF PAIN 8-9; DILAUDID GIVEN PRN MED, CRAB PICKER MADE AWARE. WILL CONTINUE TO MONITOR AND ASSESS THROUGHOUT THE SHIFT.
--- NOTE | 2020-12-02 22:00 | NUR ---
RN NOTES PATIENT REMAINS IN NO ACUTE RESPIRATORY DISTRESS AT THIS TIME, NO CHANGES TO CONDITION/STATUS. MAGAZINE JOURNALIST WELL AWARE. WILL CONTINUE TO MONITOR AND REASSESS FOR ANY CHANGES THROUGHOUT THE SHIFT
[2020-12-03] VITALS (40 sets, daily range): BP systolic 82–163; BP diastolic 48–93
[2020-12-03] MEDS: HYDROCODONE/APAP 5/325MG TABLET PO PRN (01:45)
[2020-12-03] MEDS: HYDROMORPHONE 1 MG/1 ML DISP.SYRIN IV PRN (03:40)
[2020-12-03] MEDS: IV NS 0.9% 1,000 ML IV PRN (04:00)
--- NOTE | 2020-12-03 06:48 | NUR ---
RN CLOSING NOTE: PATIENT REMAINS IN ROOM IN NO SIGNS OF RESPIRATORY DISTRESS, PATIENT STILL ON 3L OF 02 VIA NC;TOLERATING WELL SATURATING @ >95% SP02. SAFETY MEASURES IMPLEMENTED, BED IN LOWEST POSITION, LOCKED, SIDE RAILS UP, CALL LIGHT WITHIN REACH. ALL NEEDS AND ORDERS ADDRESSED DURING THE SHIFT. IV ACCESS MAINTAINED INTACT, SECURED AND FLUSHING WELL. ALL DUE MEDS GIVEN ORDERED & SCHEDULED ; PATIENT TOLERATED WELL. PATIENT KEPT CLEAN AND COMFORTABLE WITHIN THE SHIFT.WILL ADVISE INCOMING SHIFT RN TO F/U PTT RESULT TAKEN AROUND 6AM, AND FOLLOW HEPARIN DRIP PROTOCOL. PATIENT ENDORSED TO INCOMING SHIFT RN WITH STABLE VITAL SIGN AND FOR CONTINUITY OF CARE.
[2020-12-03 07:01] LABS: BASOPHILS # (AUTO) 0.2 /CMM (0.0-0.2); BASOPHILS % (AUTO) 0.8 % (0.0-2.0); EOSINOPHILS % (AUTO) 1.9 % (0.0-6.0); HEMATOCRIT 31 % (39-51); LYMPHOCYTES # (AUTO) 0.7 /CMM (0.8-4.8); MEAN CORPUSCULAR HGB CONC 33 g/dl (31.0-36.0); MEAN CORPUSCULAR VOLUME 89 fL (80-96); MONOCYTES # (AUTO) 1.5 /CMM (0.1-1.30); MONOCYTES % (AUTO) 6.3 % (2.0-12.0); NEUTROPHILS # (AUTO) 20.7 /CMM (1.8-8.9); PLATELET COUNT (AUTO) 105 /CMM (150-450); RED BLOOD CELL COUNT(AUTO) 3.47 MIL/uL (4.5-6.0); WHITE BLOOD COUNT (AUTO) 23.5 K/uL (4.3-11.0)
--- NOTE | 2020-12-03 07:05 | NUR ---
RN NOTES RECEIVED CALL FROM [facility], SPOKE WITH YAQUELIN, HE PT IS SCHED FOR CTA @11AM, PRIMARY RN TOLD HIM THAT PER DR. GARNER'S NOTES AND PER COMMUNICATION OF THE AM SHIFT WITH DR. GARNER, CTA IS BEING CONSIDERED AND RECOMMENDED BUT NO CONCRETE SCHEDULE YET PT'S COVID PCR RESULT HASN'T COME YET. YAQUELIN SAID HE WAS ABLE TO TALK TO DR. GARNER AND MENTIONED TO SCHEDULE PT TODAY (12.03.2020). ADVISED YAQUELIN THATS THERE'S NO CONSENT AND ORDER SECURED FOR THE PROCEDURE. HE SAID THEY WILL TAKE CARE OF IT. HE ALSO ASKED NEURO STATUS OF PATIENT FOR CONSENT PURPOSES AND RN MENTIONED THAT PT IS CONFUSED. HE SAID THEY WILL TAKE CARE OF IT AND JUST PUT PT ON NPO NOW. RN ACKNOWLEDGED. HEAD OF RESEARCH & INSIGHTS MADE AWARE. AM SHIFT RN MADE AWARE.
[2020-12-03] MEDS: PANTOPRAZOLE 40 MG TABLET.DR PO SCH (07:30)
[2020-12-03 07:37] LABS: CALCIUM, SERUM 6.8 mg/dL (8.5-10.1); CREATININE 4.7 mg/dL (0.6-1.3); POTASSIUM 3.4 mmol/L (3.5-5.1)
[2020-12-03] MEDS: ASPIRIN 81 MG TAB.CHEW PO SCH (08:16)
[2020-12-03] MEDS: QUETIAPINE FUMARATE 25 MG TABLET PO SCH ×2 (08:16→15:35)
--- NOTE | 2020-12-03 08:17 | NUR ---
AM MEDS NON-ADMIN, PT TO HAVE CT ANGIO @1100, NPO PER MD GARNER
[2020-12-03 09:10] LABS: BAND % (MANUAL) 1 % (0.0-5.0); EOSINOPHILS % (MANUAL) 3 % (0-4); LYMPHOCYTES % (MANUAL) 4 % (16-48); MONOCYTES % (MANUAL) 5 % (0-11.0); MYELOCYTES % 2 % (0-0); NEUTROPHILS % (MANUAL) 85 (42-76)
[2020-12-03] MEDS ORDERED: IV NS 0.9% 1,000 ML ONE (10:19)
[2020-12-03] MEDS ORDERED: IODIXANOL 300 ML IV ONE (10:20)
--- NOTE | 2020-12-03 10:35 | NUR ---
PT TRANSPORTED TO RECYCLING DIRECTOR
[2020-12-03] MEDS ORDERED: IV SET PRIMARY PUMP SET 1 EA INFUS.SET MC ONE ×2 (11:01→11:03)
[2020-12-03] MEDS ORDERED: FENTANYL PF 100MCG/2ML AMPUL ONE (11:07)
[2020-12-03] MEDS ORDERED: IV NS 0.9% 500 ML IV ONE ×2 (11:24→12:37)
[2020-12-03] MEDS ORDERED: VASOPRESSIN INJ 40 UNIT in IV NS 0.9% 38 ML IV PRN (11:30)
[2020-12-03] MEDS ORDERED: EPINEPHRINE (1:1000) 10 MG in IV NS 0.9% 240 ML IV PRN (11:30)
[2020-12-03] MEDS ORDERED: NOREPINEPHRINE 32 MG in IV NS 0.9% 218 ML IV PRN (11:30)
[2020-12-03] MEDS ORDERED: LIDOCAINE HCL/PF 1% 30 ML SDV ONE (11:36)
[2020-12-03] MEDS ORDERED: MIDAZOLAM HCL 5 MG/5ML VIAL IV ONE (12:00)
[2020-12-03] MEDS ORDERED: KETAMINE HCL (500MG/10ML) 50 MG/ML VIAL IV ONE (12:00)
[2020-12-03 12:19] LABS: D-DIMER 11.76 mg/L(FEU (0.17-0.50)
[2020-12-03] MEDS ORDERED: HEPARIN SODIUM, PORCINE 5000 UNITS/1 ML VIAL ONE (12:28)
[2020-12-03] MEDS ORDERED: HEPARIN SODIUM, PORCINE 1,000 UNIT/ML VIAL ONE (12:28)
[2020-12-03] MEDS ORDERED: IODIXANOL 320MG/ML 50 ML IV ONE (12:40)
[2020-12-03] MEDS ORDERED: NS 0.9% IV PRN (13:00)
[2020-12-03] MEDS ORDERED: ALTEPLASE CATHFLO IV PRN (13:00)
[2020-12-03] MEDS ORDERED: HEPARIN INFUSION/D5W 500 ML IV ONE (13:00)
[2020-12-03] MEDS: POTASSIUM CL. PREMIX PERIPHER. 50 ML IV SCH ×3 (14:00→15:35)
[2020-12-03 14:08] LABS: BASOPHILS # (AUTO) 0.2 /CMM (0.0-0.2); BASOPHILS % (AUTO) 0.9 % (0.0-2.0); EOSINOPHILS % (AUTO) 0.8 % (0.0-6.0); HEMATOCRIT 30 % (39-51); HEMOGLOBIN 9.3 g/dL (13.5-17.5); LYMPHOCYTES # (AUTO) 0.9 /CMM (0.8-4.8); LYMPHOCYTES % (AUTO) 3.4 % (20.0-44.0); MEAN CORPUSCULAR HGB CONC 31 g/dl (31.0-36.0); MEAN CORPUSCULAR VOLUME 92 fL (80-96); MONOCYTES # (AUTO) 1.1 /CMM (0.1-1.30); MONOCYTES % (AUTO) 4.4 % (2.0-12.0); NEUTROPHILS # (AUTO) 22.7 /CMM (1.8-8.9); NEUTROPHILS % (AUTO) 90.5 % (43.0-81.0); PLATELET COUNT (AUTO) 108 /CMM (150-450); RED BLOOD CELL COUNT(AUTO) 3.29 MIL/uL (4.5-6.0); WHITE BLOOD COUNT (AUTO) 25.2 K/uL (4.3-11.0)
--- NOTE | 2020-12-03 14:15 | NUR ---
laborer salvage reports patient transferred to ICU. Report given to Tammie Kruse. Personal belongings handed off to icu.
[2020-12-03 14:57] LABS: CALCIUM, SERUM 7.6 mg/dL (8.5-10.1); CREATININE 4.8 mg/dL (0.6-1.3); POTASSIUM 3.5 mmol/L (3.5-5.1)
--- NOTE | 2020-12-03 15:00 | NUR ---
ICU/RN PT CAME FROM MEDICAL/SURGERY REGISTERED NURSE INTUBATED ON THE VENT FIO2-100%.ON EPINEPHRINE DRIP, HEPARIN DRIP IS OFF APTT MORE THEN 170.MD NOTIFIED.NOT SEDATED.UNRESPONSIVE.LEFT WRIST ARTERIAL LINE.RIGHT UPPER ARM PICC LINE.F/C DRAINING WITH YELLOW URINE.GENERALIZED EDEMA PRESENT .SUCTION PROVIDED.ABG ORDERED.REPOSITION FOR COMFORT.CONTINUE MONITORING.
[2020-12-03 15:48] LABS: ABG BASE EXCESS -13.9 mmol/L; ABG OXYGEN SATURATION 99.2 % (92.0-98.5); ABG PCO2 48.8 mmHg (35.0-45.0); ABG PH 7.111 (7.350-7.450); ABG PO2 214.6 mmHg (75.0-100.0); AaDO2 449.6 mmHg; COHb 1.1 % (0.5-1.5); MetHb 0.3 % (0.0-1.5); O2Hb 97.8 % (94.0-97.0); SITE, ABG A-Line; VENT MODE, BG AC 14 450 100% 0
--- NOTE | 2020-12-03 17:21 | NUR ---
pt received from [facility] orally intubated with 7.0 et tube secured at 24cm. setting as ordered alarms set and audible. pt sedated with zero resp. distress noted. b/s equal ambu bag at head of bed. vent plugged into red outlet. Addendum: 12/03/20 at 1732 by MATEUS DAVILA RT Amended: Links added.
[2020-12-03] MEDS ORDERED: Sodium Bicarbonate 100 MEQ in IV 1/2NS 1000 ML 1,000 ML IV PRN (18:00)
[2020-12-03] MEDS: CEFEPIME 1 GM in IV D5W 50 ML IV SCH (18:12)
--- NOTE | 2020-12-03 20:00 | NUR ---
RN Note Pt. remains on vent settings as ordered. Restart heparin @ 900. PTT order @ 0300 12/04/20.
[2020-12-03] MEDS: HEPARIN INFUSION/D5W 500 ML IV PRN (20:46)
[2020-12-04] VITALS (89 sets, daily range): BP systolic 73–154; BP diastolic 43–93
[2020-12-04] MEDS: PROPOFOL 100 ML IV PRN ×4 (02:39→22:25)
[2020-12-04 05:10] LABS: BASOPHILS % (AUTO) 0.2 % (0.0-2.0); EOSINOPHILS % (AUTO) 1.1 % (0.0-6.0); HEMATOCRIT 27 % (39-51); HEMOGLOBIN 8.9 g/dL (13.5-17.5); LYMPHOCYTES # (AUTO) 0.8 /CMM (0.8-4.8); LYMPHOCYTES % (AUTO) 4.5 % (20.0-44.0); MEAN CORPUSCULAR HGB CONC 33 g/dl (31.0-36.0); MEAN CORPUSCULAR VOLUME 89 fL (80-96); MONOCYTES # (AUTO) 1.2 /CMM (0.1-1.30); MONOCYTES % (AUTO) 6.1 % (2.0-12.0); NEUTROPHILS # (AUTO) 16.7 /CMM (1.8-8.9); NEUTROPHILS % (AUTO) 88.1 % (43.0-81.0); PLATELET COUNT (AUTO) 146 /CMM (150-450); RED BLOOD CELL COUNT(AUTO) 3.04 MIL/uL (4.5-6.0)
[2020-12-04 05:21] LABS: CALCIUM, SERUM 6.7 mg/dL (8.5-10.1); CREATININE 4.9 mg/dL (0.6-1.3); POTASSIUM 3.8 mmol/L (3.5-5.1)
--- NOTE | 2020-12-04 06:50 | NUR ---
RN Note. Pt. remain on bicarb drip @ 75. New meds, propofol current rate 50, Quad levo @ 0.05, Heparin now at 1000, next PTT @ 1200 hrs.
[2020-12-04 07:55] LABS: ABG BASE EXCESS -8.4 mmol/L; ABG OXYGEN SATURATION 97.1 % (92.0-98.5); ABG PCO2 30.2 mmHg (35.0-45.0); ABG PO2 99.3 mmHg (75.0-100.0); AaDO2 151.2 mmHg; COHb 1.6 % (0.5-1.5); MetHb 0.4 % (0.0-1.5); O2Hb 95.2 % (94.0-97.0); PEEP,BG 0 cm H2O; SITE, ABG A-Line; VT, ABG 500 mL
--- NOTE | 2020-12-04 09:00 | NUR ---
ICU/RN PT IS INTUBATED ON THE VENT AC MODE ,FIO2-40%,SAT O2-100%.SEDATED ON DIPRIVAN .BILATERAL SOFT WRIST RESTRAINS ON.ON LEVOPHED DRIP .AFEBRILE.ON HEPARIN DRIP.RIGHT UPPER ARM PICC LINE.LEFT WRIST ARTERIAL LINE.OG TUBE INSERTED.DUE MEDS ARE GIVEN ORDERED.GENERALIZED EDEMA PRESENT.F/C IN PLACE WITH MINIMAL URINE OUTPUT.LABS REVIEW.MD NOTIFIED.SUCTION PROVIDED.REPOSITION FOR COMFORT.CONTINUE MONITORING.
[2020-12-04] MEDS: QUETIAPINE FUMARATE 25 MG TABLET PO SCH ×2 (09:05→16:35)
[2020-12-04] MEDS: ASPIRIN 81 MG TAB.CHEW PO SCH (09:05)
[2020-12-04] MEDS: PANTOPRAZOLE 40 MG VIAL IV SCH (09:05)
[2020-12-04] MEDS: HYDROCORTISONE SOD SUCCINATE 100 MG/2 ML VIAL IV SCH ×3 (09:07→22:18)
[2020-12-04] MEDS: Sodium Bicarbonate 100 MEQ in IV 1/2NS 1000 ML 1,000 ML IV SCH ×2 (09:45→22:18)
[2020-12-04] MEDS: NOREPINEPHRINE 32 MG in IV NS 0.9% 218 ML IV PRN ×2 (10:10→22:29)
[2020-12-04] MEDS: CEFEPIME 1 GM in IV D5W 50 ML IV SCH (16:35)
--- NOTE | 2020-12-04 20:33 | NUR ---
RECEIVED PT INTUBATED ON VENT, 7.0 ETT SECURED AT 24CM LIP LINE. SX'D SML AMT OF THIN WHITE SECRETIONS. VENT ALARMS SET AND AUDIBLE. ETT CUFF CHECKED. VENT PLUGGED INTO RED OUTLET. CONTINUE TO MONITOR. Addendum: 12/04/20 at 2034 by MEGAN WILLIS RT Amended: Links added.
[2020-12-04] MEDS: HEPARIN INFUSION/D5W 500 ML IV PRN (22:22)
[2020-12-04] MEDS: HYDROCODONE/APAP 5/325MG TABLET PO PRN (22:26)
[2020-12-05] VITALS (78 sets, daily range): BP systolic 79–153; BP diastolic 46–120
[2020-12-05] MEDS: PROPOFOL 100 ML IV PRN ×6 (03:32→23:55)
[2020-12-05 04:52] LABS: BASOPHILS % (AUTO) 0.2 % (0.0-2.0); HEMATOCRIT 26 % (39-51); HEMOGLOBIN 8.3 g/dL (13.5-17.5); LYMPHOCYTES # (AUTO) 0.5 /CMM (0.8-4.8); LYMPHOCYTES % (AUTO) 2.3 % (20.0-44.0); MEAN CORPUSCULAR HGB CONC 33 g/dl (31.0-36.0); MEAN CORPUSCULAR VOLUME 87 fL (80-96); MONOCYTES # (AUTO) 0.4 /CMM (0.1-1.30); MONOCYTES % (AUTO) 1.7 % (2.0-12.0); NEUTROPHILS # (AUTO) 20.9 /CMM (1.8-8.9); NEUTROPHILS % (AUTO) 95.8 % (43.0-81.0); PLATELET COUNT (AUTO) 188 /CMM (150-450); RED BLOOD CELL COUNT(AUTO) 2.93 MIL/uL (4.5-6.0); WHITE BLOOD COUNT (AUTO) 21.8 K/uL (4.3-11.0)
[2020-12-05 05:13] LABS: CALCIUM, SERUM 7.5 mg/dL (8.5-10.1); CREATININE 4.9 mg/dL (0.6-1.3); POTASSIUM 3.5 mmol/L (3.5-5.1)
--- NOTE | 2020-12-05 07:05 | NUR ---
RN NOTES ENAMORADO CATHETER WAS REMOVED VIA NIGHT NURSE RN. PER RN NO OUTPUT, BECAUSE EDEMA OF SCROTUM, AFTER REMOVAL ENAMORADO PATIENT URINATED BY SELF.
--- NOTE | 2020-12-05 07:30 | NUR ---
rn notes ptt level is 56.4 per heparing protocol no changes running 1100 u, and will follow daily ptt.
--- NOTE | 2020-12-05 08:00 | NUR ---
RN NOTES RECEIVED PATIENT IN THE BED 65 Y/OLD MALE, EET ON VENT AND TOLERATING SETTING WELL. PATIENT HAS NO ACUTE RESPIRATORY DISTRESS, SEDATED DIPRIVAN ON 50 MCG/KG/HR, LEVOPHED 32 ON 0.02 MCG/KG/HR. BICARB ON 75 ML/HR, AND HEPARIN DRIP 1100U INTACT ON RIGHT PICC LINE, INTACT. PATIENT HAS NO ENAMORADO BECAUSE OF PER PREVIOUS SHIFT RN REMOVED, AND GET RESISTANCE OF GETTING URINE, BUT AFTER REMOVAL OF ENAMORADO PATIENT URINATED. OGT INTACT, NEEDS ATTENDED AND ANTICIPATED, WILL MONITORING.
--- NOTE | 2020-12-05 08:05 | NUR ---
rn notes patient has left wrist arterial line, get blood for Abg, result is ph-7.39, pco2-29, po2-69.3, HCo3 17.2. , fo2 hb-92.3. will monitoring.
[2020-12-05 08:39] LABS: ABG BASE EXCESS -6.6 mmol/L; ABG OXYGEN SATURATION 92.9 % (92.0-98.5); ABG PH 7.391 (7.350-7.450); ABG PO2 69.3 mmHg (75.0-100.0); AaDO2 110.5 mmHg; COHb 0.6 % (0.5-1.5); O2Hb 92.3 % (94.0-97.0); PEEP,BG 0 cm H2O; SITE, ABG A-Line; VT, ABG 500 mL
[2020-12-05] MEDS: PANTOPRAZOLE 40 MG VIAL IV SCH (09:22)
[2020-12-05] MEDS: QUETIAPINE FUMARATE 25 MG TABLET PO SCH ×2 (09:22→16:58)
[2020-12-05] MEDS: ASPIRIN 81 MG TAB.CHEW PO SCH (09:22)
--- NOTE | 2020-12-05 10:00 | NUR ---
RN NOTES GET FC INSERTION ORDER BY FLOWER ARRANGER Dr TRAN. INSERTED CATHETER , NO RESISTANCE, AND GET 200 ML OF YELLOW OUTPUT .
--- NOTE | 2020-12-05 11:00 | NUR ---
RN NOTES RJ TO ORDER FOR HD CATHETER INSERTION BY TICKET CHOPPER ASSEMBLER Dr TRAN.
--- NOTE | 2020-12-05 12:10 | NUR ---
RN NOTES INSERTED HD CATH VIA MUNA FISHER GUEST SERVICES ASSOCIATE ON LEFT FEMORAL AREA, INTACT. HD CATHETER READY FOR HD TODAY, NOTIFIED MATTY HD NURSE. WILL FOLLOW UP.
[2020-12-05] MEDS: NOREPINEPHRINE 8 MG in IV NS 0.9% 242 ML IV PRN (12:11)
--- NOTE | 2020-12-05 14:22 | NUR ---
rn notes patient getting HD at this time.
[2020-12-05] MEDS: Sodium Bicarbonate 100 MEQ in IV 1/2NS 1000 ML 1,000 ML IV SCH ×2 (14:46→23:51)
--- NOTE | 2020-12-05 16:24 | NUR ---
rn notes finished Hd at this time, patient output was 1.2 l. will monitoring.
[2020-12-05] MEDS: CEFEPIME 1 GM in IV D5W 50 ML IV SCH (16:58)
--- NOTE | 2020-12-05 17:17 | NUR ---
RN NOTES STARTED GLUCERNA 1.2 AT 20CC/HR, WILL MONITORING.
[2020-12-05] MEDS: GLUCERNA 1.2 1,000 ML BOTTLE NG PRN (17:38)
--- NOTE | 2020-12-05 18:28 | NUR ---
RN NOTES PATIENT CARE DONE, SUCTION, DUE MEDICATION ADMINISTERED. ASSIST TURN AND REPOSTION Q 2 HR, ENAMORADO DRAINING YELLOW OUTPUT WITH WHITE SEDIMENTS. PATIENT TOLERATING GLUCERNA 1.2 OGT FEEDING AT 25 ML/HR WELL. INFUSING LEVOPHED 0.02MCG/KG/HR, HEPARIN 1100 U, BICARB WITH 1/2 NS AT 75 ML/HR, AND DIPRIVAN 50MCG/KG/HR. , RECHECKED SOFT RESTRAIN CIRCULATION Q 2 HR. WILL ENDORSED ONCOMING NURSE FOLLOW PLAN OF CARE.
--- NOTE | 2020-12-05 22:00 | NUR ---
pT NOTED TO HAVE LIMITED URINATY OUTPUT OF LESS THAN 10 PER HOUR THIS SHIFT, REMOVED CATHETER FOR CONCERN OF OBSTRUCTION. SIGNIFICANT SCROTAL EDEMA NOTED AND CATHETER WAS FOUND TO BE DISLODGED IN URETHRA THE NIGHT PRIOR (WAS D/C'D AND AND THEN REINSERTED). WAITED FOR PT TO VOID AND AT 0458, NOTIFIED MD TITLE SEARCHER THAT NO URINE OUTPUT WAS NOTED AND CONCERN FOR SCROTAL EDEMA. REQUESTED UROLOGY CONSULT. STATED HE WOULD REFER TO UROLOGY VIA TEXT MESSAGE.ALERTED NIGHT NURSE AND CHARGE OF MD DECISION. BLADDER SCANNER MAX NOTED ON MULTIPLE BLADDER SCANS WAS 465 LAST TAKE AT 0700 OF BLADDER. PHOTOS OF SCROTUM ON FILE IN CHART WELL NECRTOTIC FEET. WEANED OF LEVO THIS AM AND DECREASED THE PROPOFOL SIGNIFICANTLY.
[2020-12-05] MEDS: HYDROCODONE/APAP 5/325MG TABLET PO PRN (23:53)
[2020-12-06] VITALS (122 sets, daily range): BP systolic 61–133; BP diastolic 27–82
[2020-12-06 04:55] LABS: BASOPHILS % (AUTO) 0.1 % (0.0-2.0); EOSINOPHILS % (AUTO) 0.5 % (0.0-6.0); HEMATOCRIT 27 % (39-51); HEMOGLOBIN 8.8 g/dL (13.5-17.5); LYMPHOCYTES # (AUTO) 1.3 /CMM (0.8-4.8); LYMPHOCYTES % (AUTO) 6.8 % (20.0-44.0); MEAN CORPUSCULAR HGB CONC 33 g/dl (31.0-36.0); MEAN CORPUSCULAR VOLUME 86 fL (80-96); MONOCYTES # (AUTO) 1.2 /CMM (0.1-1.30); MONOCYTES % (AUTO) 5.9 % (2.0-12.0); NEUTROPHILS # (AUTO) 17.1 /CMM (1.8-8.9); NEUTROPHILS % (AUTO) 86.7 % (43.0-81.0); PLATELET COUNT (AUTO) 249 /CMM (150-450); RED BLOOD CELL COUNT(AUTO) 3.08 MIL/uL (4.5-6.0); WHITE BLOOD COUNT (AUTO) 19.7 K/uL (4.3-11.0)
[2020-12-06 05:10] LABS: CALCIUM, SERUM 7.3 mg/dL (8.5-10.1); POTASSIUM 3.4 mmol/L (3.5-5.1)
[2020-12-06] MEDS: PROPOFOL 100 ML IV PRN ×5 (05:46→20:12)
--- NOTE | 2020-12-06 08:00 | NUR ---
rn notes PATIENT HAS NO ENAMORADO CATHETER , ACCORDING NIGHT NURSE RN STILL HAS A PROBLEM OUTPUT, AND REMOVED ENAMORADO. PER SANDSTONE INSPECTOR REPAIRER GET ORDER WEANING FROM A VENT. PATIENT ON DIPRIVAN 30 MCG/KG/HR, MILD AGITATED. TITRATED DIPRIVAN PER ORDER. INFUSING BICARB WITH 1/2 NS AT 75 ML/HR ON ANUPAMA PICC LINE. , PATIENT HAS COOL SKIN BILATERAL LOWER EXTREMITIES BECAUSE NECROTIC TISSUE. OGT INTACT NO RESIDUAL, PLACEMENT CHECKED, RUNNING GLUCERNA 1.2 30CC/HR . RECHECKED SOFT RESTRAIN BILATERAL WRISTS. ASSIST TURN AND REPOSTION Q 2 HR, SEEN PATIENT WOUND NURSE, AND HOSPITALIST RONY FALCON. GET ORDER UROLOGIST CONSULT, AND US OF SCROTUM, AND BLADDER BECAUSE OF EDEMA. ORDER TAKEN AND CARRIED OUT. BED ON LOWER POSSITION, AND LACKED. WILL MONITORING.
[2020-12-06 08:23] LABS: ABG BASE EXCESS -0.7 mmol/L; ABG OXYGEN SATURATION 94.2 % (92.0-98.5); ABG PH 7.458 (7.350-7.450); ABG PO2 79.8 mmHg (75.0-100.0); AaDO2 95.3 mmHg; COHb 1.2 % (0.5-1.5); MetHb 0.3 % (0.0-1.5); O2Hb 92.8 % (94.0-97.0); SITE, ABG A-Line
--- NOTE | 2020-12-06 08:24 | NUR ---
WOUND CARE CONSULT: PT SEEN FOR SKIN ASSESSMENT AND NOTED TO HAVE PURPLE DISCOLORATION TO LEFT FOOT AND TO RT DISTAL TOES WELL VERY SWOLLEN PENIS AND SCROTUM. RONY CHAUDHRY DNP NOTIFIED. DNP TO CALL FOR UROLOGY CONSULT. DEFER TO UROLOGY FOR PENIS AND SCROTUM SWELLING. DEFER TO PODIATRY FOR FEET. RECOMMENDATIONS MADE FOR SKIN PROTECTION. DISCUSSED WITH NURSING STAFF. MD IN AGREEMENT WITH PLAN OF CARE. PT IS ON [place] [facility] LOW AIRLOSS BED.
--- NOTE | 2020-12-06 09:00 | NUR ---
RN NOTES PATIENT FAIL WEANING, DECREASED OXYGEN SATURATION, RESTARTED DIPRIVAN DEDATION PER PROTOCOL. DUE MEDICATION ADMINISTERED VIA OGT, US OF SCROTUM, AND BLADDER DONE. WILL MONITORING FOR RESULT IN 30 MINS.
[2020-12-06] MEDS: QUETIAPINE FUMARATE 25 MG TABLET PO SCH ×2 (09:57→17:40)
[2020-12-06] MEDS: ASPIRIN 81 MG TAB.CHEW PO SCH (09:57)
[2020-12-06] MEDS: PANTOPRAZOLE 40 MG VIAL IV SCH (09:58)
--- NOTE | 2020-12-06 11:41 | NUR ---
rn notes The urinary bladder is normal in size, contour and wall thickness. No evidence of bladder stones. No evidence of a bladder mass. There is a moderate amount of debris seen within the bladder contents. There is a prevoid volume of 209 cc. Patient is unable to void..
--- NOTE | 2020-12-06 11:42 | NUR ---
rn note patient getting HD at this time.
[2020-12-06] MEDS: ALBUMIN 25% 25 GM in PREMIX 1 EA IV PRN (13:17)
--- NOTE | 2020-12-06 13:28 | NUR ---
rn notes get coved pcr result patient positive.
--- NOTE | 2020-12-06 14:16 | NUR ---
FRANCESCA MARIN HD FINISHED AT THIS TIME, OUTPUT WAS 2000ML.
[2020-12-06] MEDS ORDERED: HEPARIN SODIUM, PORCINE 5000 UNITS/1 ML VIAL IV ONE (14:30)
[2020-12-06] MEDS: DEXAMETHASONE SOD PHOSPHATE 10 MG/ML VIAL IV SCH (15:11)
[2020-12-06] MEDS: HEPARIN INFUSION/D5W 500 ML IV PRN ×2 (15:32→15:54)
--- NOTE | 2020-12-06 15:55 | NUR ---
rn notes started heparin blouse 1050u/hr , PTT will checked on 6hr.
[2020-12-06] MEDS: GLUCERNA 1.2 1,000 ML BOTTLE NG PRN (16:20)
[2020-12-06] MEDS: CEFEPIME 1 GM in IV D5W 50 ML IV SCH (17:06)
[2020-12-06] MEDS: HYDROMORPHONE 1 MG/1 ML DISP.SYRIN IV PRN ×2 (17:40→22:37)
--- NOTE | 2020-12-06 17:40 | NUR ---
RN NOTES ADMINISTERED DILAUDID 1 MG/ML IV PUSH FOR GENERALIZED PAIN. NA=596/64, P-90.
--- NOTE | 2020-12-06 18:38 | NUR ---
RN NOTES PATIENT AM CARE DONE, SUCTION, ADMINISTERED SCHEDULED MEDICATION, RUNNING OGT FEEDING GLUCERNA 45 CC/HR INTACT. INFUSING HEPARIN BOLUCE 1059UNIT/HR, DIPRIVAN 75 ML/HR, AND BICARB IN 1/2 NS AT 75ML/HR. ASSIST PATIENT TURN AND REPOSTION Q2 HR. WAITING UROLOGIST CONSULTATION Dr. RUBIO. RECHECKED CIRCULATION ON BILATERAL SOFT RESTRAIN, LEFT A-LINE INTACT. ENDORSED ONCOMING NURSE FOLLOW PLAN OF CARE.
[2020-12-06] MEDS: Sodium Bicarbonate 100 MEQ in IV 1/2NS 1000 ML 1,000 ML IV SCH (18:48)
[2020-12-06] MEDS: ONDANSETRON HCL/PF 4 MG/2 ML VIAL IVP PRN (22:37)
[2020-12-06] MEDS: MAGNESIUM HYDROXIDE 30 ML UDC PO PRN (22:38)
[2020-12-07] VITALS (130 sets, daily range): BP systolic 80–144; BP diastolic 43–97
[2020-12-07] MEDS: PROPOFOL 100 ML IV PRN ×4 (04:02→22:56)
--- NOTE | 2020-12-07 07:00 | NUR ---
RN NOTES RECEIVED PT ON BED, INTUBATED AND SEDATED, ON DIPRIVAN AT45 MCG/KG/MIN , ON LEVO AT .1 MCG/KG/MIN FOR BP SUPPORT, ENAMORADO INTACT AND DRINING TO GRAVITY, PT ON HEPARIN GTT AT 1050 U/HR, R UPPER ARM PICC LINE SITE CLEAN, DRY AND INTACT, TF AT 45CC RUNNING , NO RESIDUAL NOTED , ON TELE SR HR IN 80'S, SR UP x3 , CALL LIGHT WITHIN EASY REACH, BED LOCKED AND IN LOWEST POSITION, CONTINUE TO MONITOR.
[2020-12-07 07:49] LABS: ABG BASE EXCESS 1.1 mmol/L; ABG OXYGEN SATURATION 90.5 % (92.0-98.5); ABG PCO2 36.7 mmHg (35.0-45.0); ABG PH 7.452 (7.350-7.450); ABG PO2 65.1 mmHg (75.0-100.0); AaDO2 105.7 mmHg; COHb 1.7 % (0.5-1.5); MetHb 0.2 % (0.0-1.5); O2Hb 88.8 % (94.0-97.0); SITE, ABG A-Line
[2020-12-07 08:06] LABS: BASOPHILS % (AUTO) 0.3 % (0.0-2.0); EOSINOPHILS % (AUTO) 0.1 % (0.0-6.0); HEMATOCRIT 22 % (39-51); HEMOGLOBIN 7.3 g/dL (13.5-17.5); LYMPHOCYTES # (AUTO) 0.8 /CMM (0.8-4.8); LYMPHOCYTES % (AUTO) 4.4 % (20.0-44.0); MEAN CORPUSCULAR HGB CONC 33 g/dl (31.0-36.0); MEAN CORPUSCULAR VOLUME 88 fL (80-96); MONOCYTES # (AUTO) 1.1 /CMM (0.1-1.30); MONOCYTES % (AUTO) 5.7 % (2.0-12.0); NEUTROPHILS % (AUTO) 89.5 % (43.0-81.0); PLATELET COUNT (AUTO) 206 /CMM (150-450); RED BLOOD CELL COUNT(AUTO) 2.53 MIL/uL (4.5-6.0); WHITE BLOOD COUNT (AUTO) 18.9 K/uL (4.3-11.0)
[2020-12-07] MEDS: PANTOPRAZOLE 40 MG VIAL IV SCH (08:24)
[2020-12-07] MEDS: ASPIRIN 81 MG TAB.CHEW PO SCH (08:25)
[2020-12-07] MEDS: QUETIAPINE FUMARATE 25 MG TABLET PO SCH ×2 (08:25→16:09)
[2020-12-07] MEDS: DEXAMETHASONE SOD PHOSPHATE 10 MG/ML VIAL IV SCH (08:26)
[2020-12-07 08:47] LABS: CALCIUM, SERUM 7.2 mg/dL (8.5-10.1); CREATININE 3.1 mg/dL (0.6-1.3); POTASSIUM 3.9 mmol/L (3.5-5.1)
[2020-12-07] MEDS: Sodium Bicarbonate 100 MEQ in IV 1/2NS 1000 ML 1,000 ML IV SCH (09:56)
[2020-12-07] MEDS: HEPARIN INFUSION/D5W 500 ML IV PRN (10:34)
--- NOTE | 2020-12-07 12:00 | NUR ---
RN NOTES PT UNABLE TO TOLERATE SIMV MODE, BACK ON SEDATION PER DR BURGER ORDER.
[2020-12-07] MEDS: GLUCERNA 1.2 1,000 ML BOTTLE NG PRN (12:30)
[2020-12-07] MEDS: CEFEPIME 1 GM in IV D5W 50 ML IV SCH (16:11)
[2020-12-07] MEDS ORDERED: CEFEPIME 2 GM in IV D5W 100 ML IV SCH (17:00)
--- NOTE | 2020-12-07 18:22 | NUR ---
RT RT CALLED TO PATIENT ROOM PATIENT IS BITING ETT. BITE BLOCK PLACED IN MOUTH. IT APPEARS ETT CUFF IS NO LONGER STAYING INFLATED. PATIENT CONTINUES TO RECEIVE PROPER TIDAL VOLUME FROM VENT. WILL ENDORSE TO DIGITAL STRATEGIST TO POSSIBLY EXCHANGE TUBE IF TIDAL VOLUMES DROP. PATIENT REMAINS STABLE AT THIS TIME. NO SOB NOTED. Addendum: 12/07/20 at 1826 by FREEDOM HE RT Amended: Links added.
--- NOTE | 2020-12-07 18:38 | NUR ---
RN NOTES PT REMAINS INTUBATED AND SEDATED, ON DIPRIVAN AND 60 MCG/KG/MIN RUNNING , IT APPEARS ETT CUFF IS NO LONGER STAYING INFLATED, CHARGE NURSE AND NURSING DIE CUTTING MACHINE OPERATOR NOTIFIED REGARDING CHANGING THE ET TUBE, VSS STABLE AT THIS TIME , HEPARIN GTT AT 1050 U/HR . NO SIGN OF COMPLICATION NOTED . WILL ENDORSE TO CLASSIFICATIONS OFFICER CC/CM NURSE FOR CONTINUITY OF CARE
[2020-12-07] MEDS ORDERED: EPINEPHRINE (1:1000) 1 MG/ML AMPUL ONE (20:27)
[2020-12-08] VITALS (95 sets, daily range): BP systolic 81–130; BP diastolic 46–74
[2020-12-08] MEDS: PROPOFOL 100 ML IV PRN ×6 (03:20→22:27)
[2020-12-08 04:36] LABS: BASOPHILS # (AUTO) 0.1 /CMM (0.0-0.2); BASOPHILS % (AUTO) 0.3 % (0.0-2.0); EOSINOPHILS % (AUTO) 0.5 % (0.0-6.0); HEMATOCRIT 23 % (39-51); HEMOGLOBIN 7.2 g/dL (13.5-17.5); LYMPHOCYTES # (AUTO) 1.3 /CMM (0.8-4.8); LYMPHOCYTES % (AUTO) 5.7 % (20.0-44.0); MEAN CORPUSCULAR HGB CONC 31 g/dl (31.0-36.0); MEAN CORPUSCULAR VOLUME 90 fL (80-96); MONOCYTES # (AUTO) 0.9 /CMM (0.1-1.30); MONOCYTES % (AUTO) 4.1 % (2.0-12.0); NEUTROPHILS # (AUTO) 20.7 /CMM (1.8-8.9); NEUTROPHILS % (AUTO) 89.4 % (43.0-81.0); PLATELET COUNT (AUTO) 247 /CMM (150-450); RED BLOOD CELL COUNT(AUTO) 2.54 MIL/uL (4.5-6.0); WHITE BLOOD COUNT (AUTO) 23.2 K/uL (4.3-11.0)
[2020-12-08 04:50] LABS: CALCIUM, SERUM 7.3 mg/dL (8.5-10.1); CREATININE 2.9 mg/dL (0.6-1.3); POTASSIUM 3.6 mmol/L (3.5-5.1)
--- NOTE | 2020-12-08 06:41 | NUR ---
Pt received intubated on [facility] vent with noticeable air leak with volume loss. According to day shift, pt blew ett cuff towards the end of shit. MD was made aware and ett was exchanged by MD with same size ett 7.0 and secured at 24cm at the lip. Positive chest/rise fall noted. Tube placement confirmed by XRAY. Continue current [facility] plan and monitor for any changes. Addendum: 12/08/20 at 0651 by ROBERT PARADA RT Amended: Links added.
--- NOTE | 2020-12-08 06:59 | NUR ---
1999 assisted change to intubation tube with anesthesia and rt, tolerated well 2214 call from radiology regarding pneumothorax on chest xray 2229- called MD and left regarding pneuomthorax. 0000- called NO Franchesca Lama regarding Pneumothorax 199- Franchesca Wilson at bs, updated on pt condition 0300- Anesthesia called and ordered CXR 0400- Anestheia at BS, updated on POC, assessed CXR, stated pneumothorax resolved, no intervention 0630- Franchesca Fischer NP paged and notified that Anesthesai stated pneuothorax resolved.
[2020-12-08] MEDS: PANTOPRAZOLE 40 MG VIAL IV SCH (08:23)
[2020-12-08] MEDS: DEXAMETHASONE SOD PHOSPHATE 10 MG/ML VIAL IV SCH (08:23)
[2020-12-08] MEDS: ASPIRIN 81 MG TAB.CHEW PO SCH (08:23)
[2020-12-08] MEDS: QUETIAPINE FUMARATE 25 MG TABLET PO SCH ×2 (08:24→17:00)
[2020-12-08] MEDS: HEPARIN INFUSION/D5W 500 ML IV PRN (10:11)
--- NOTE | 2020-12-08 12:00 | NUR ---
RN NOTE 0715: Received patient sedated. with ETT to vent, no respiratory distress noted at this time. With ANUPAMA PICC intact, on Diprivan @ 40mcg, noted with mild agitation, will titrate as ordered. SR 90's. On isolation prec for Covid, maintained and observed. Left radial Plato intact, with good waveform. OGT intact, TF Gluc @ 45 tolerated, no residuals noted. Jett cath intact, noted with blaine colored urine drained to BSD. On Heparin drip received 1200 units, just changed dose by previous shift. Left fem HD cath intact. 0830: S/E by Dr. Albarado, signed blood transfusion ordered by Dr. Bentley, 2 MDs agreed for need of BT. 0900: S/E by Dr. Dawson, with order to change Vt 450, made RT aware. 1200: No any significant changes noted at this time. Kept clean, warm and dry.
[2020-12-08] MEDS: CEFEPIME 1 GM in IV D5W 50 ML IV SCH (17:21)
--- NOTE | 2020-12-08 18:10 | NUR ---
RN NOTE 1500: Done with blood transfusion, tolerated well. No adverse reactions needed. 1810: No any significant changes noted. Kept clean, warm and dry.
--- NOTE | 2020-12-08 19:20 | NUR ---
RECEIVED PT ORALLY INTUBATED WITH 7.0 ETT SECURED AT 24CM LIP LINE ON VENT WITH THE SETTINGS OF AC 22, VT 450, PEEP 5 , FIO2 50%. SX'D DONE. VENT ALARMS SET AND AUDIBLE. ETT CUFF CHECKED. VENT PLUGGED INTO RED OUTLET. WILL CONTINUE TO MONITOR PT T/O SHIFT.
[2020-12-08] MEDS: GLUCERNA 1.2 1,000 ML BOTTLE NG PRN (22:25)
[2020-12-09] VITALS (42 sets, daily range): BP systolic 83–127; BP diastolic 51–85
--- NOTE | 2020-12-09 00:03 | NUR ---
picc liendressing changed, pm care provided, landry cath is draining and patent. massive scrotal and penile edema noted. urology on consult and physicians aware. remains o propofol. will cont to wean as appropriate while still maintaining vent tolerance. remainson heperain gtt. will monitor for bleeding.
[2020-12-09 04:19] LABS: BASOPHILS # (AUTO) 0.3 /CMM (0.0-0.2); BASOPHILS % (AUTO) 1.1 % (0.0-2.0); EOSINOPHILS % (AUTO) 0.9 % (0.0-6.0); HEMATOCRIT 23 % (39-51); HEMOGLOBIN 7.5 g/dL (13.5-17.5); LYMPHOCYTES # (AUTO) 1.2 /CMM (0.8-4.8); LYMPHOCYTES % (AUTO) 4.3 % (20.0-44.0); MEAN CORPUSCULAR HGB CONC 32 g/dl (31.0-36.0); MEAN CORPUSCULAR VOLUME 88 fL (80-96); MONOCYTES # (AUTO) 1.1 /CMM (0.1-1.30); MONOCYTES % (AUTO) 3.8 % (2.0-12.0); NEUTROPHILS # (AUTO) 25.5 /CMM (1.8-8.9); NEUTROPHILS % (AUTO) 89.9 % (43.0-81.0); PLATELET COUNT (AUTO) 280 /CMM (150-450); RED BLOOD CELL COUNT(AUTO) 2.65 MIL/uL (4.5-6.0); WHITE BLOOD COUNT (AUTO) 28.3 K/uL (4.3-11.0)
[2020-12-09 04:30] LABS: CALCIUM, SERUM 7.5 mg/dL (8.5-10.1); CREATININE 3.3 mg/dL (0.6-1.3); POTASSIUM 4.1 mmol/L (3.5-5.1)
[2020-12-09] MEDS: HEPARIN INFUSION/D5W 500 ML IV PRN (07:09)
[2020-12-09] MEDS: PANTOPRAZOLE 40 MG VIAL IV SCH (08:51)
[2020-12-09] MEDS: DEXAMETHASONE SOD PHOSPHATE 10 MG/ML VIAL IV SCH (08:51)
[2020-12-09] MEDS: QUETIAPINE FUMARATE 25 MG TABLET PO SCH ×2 (08:52→17:00)
[2020-12-09] MEDS: ASPIRIN 81 MG TAB.CHEW PO SCH (08:52)
--- NOTE | 2020-12-09 09:23 | NUR ---
RN NOTE 0715: Received patient with ETT to vent, AC mode. No respiratory distress noted at this time. On sedation of Diprivan @ 55mcg. ANUPAMA PICC intact, On Heparin drip, just adjusted to 1350u/hr. Left Elwood intact, with good waveform. SBP remained >90. Left fem HD cath intact. CNC SERVICE ENGINEER restraints on for safety. Jett cath intact, noted with blaine colored UOP. Isolation prec for Covid maintained and observed. 0815: S/E by ID, with order for pancultures, noted with copious thick jameson sputum 0830: Turned off Diprivan per Dr. Dawson to see for readiness for weaning. 0900: Patient is agitated. Dr. Dawson at bedside, ordered to place back on Diprivan. Collected urine and sputum for cultures.
[2020-12-09] MEDS: PROPOFOL 100 ML IV PRN ×3 (12:52→21:02)
[2020-12-09] MEDS: ALBUMIN 25% 25 GM in PREMIX 1 EA IV PRN (13:14)
[2020-12-09] MEDS: CEFEPIME 1 GM in IV D5W 50 ML IV SCH (17:22)
[2020-12-09] MEDS: LINEZOLID RTU BAG 600 MG in PREMIX 1 EA IV SCH ×2 (17:25→22:16)
--- NOTE | 2020-12-09 18:03 | NUR ---
RN NOTE 1345: PTT 62.4, no change, ordered PTT level in am. 1400: Done with HD, blood transfusion with HD, 1 unit PRBC given by HD nurse during HD, tolerated well, no any adverse reactions noted. HD nurse reported 2L out, used albumin for episodes of SBP 80's during HD. RT placed patient on FIO2 90 for episode of desat 80's, will titrate as able. 1430: Made Dr. Dawson aware for trigly 192, said to get another trigly level tomorrow, continue Diprivan for now. 1800: No any significant changes noted. Remained on Heparin 1350, Dip 55mcg, patient seems comfortable a tthis time. FIO2 70%, sat 98%. Kept clean, warm and dry.
[2020-12-09] MEDS: GLUCERNA 1.2 1,000 ML BOTTLE NG PRN (22:05)
[2020-12-09] MEDS: HYDROMORPHONE 1 MG/1 ML DISP.SYRIN IV PRN (22:23)
[2020-12-10] VITALS (95 sets, daily range): BP systolic 71–160; BP diastolic 48–103
[2020-12-10] MEDS: LORAZEPAM 1 MG TABLET PO PRN (01:31)
[2020-12-10] MEDS: HEPARIN INFUSION/D5W 500 ML IV PRN (01:38)
[2020-12-10] MEDS ORDERED: NOREPINEPHRINE 8MG/250ML RTU 250 ML IV ONE (03:23)
[2020-12-10] MEDS: NOREPINEPHRINE 8 MG in IV NS 0.9% 242 ML IV PRN ×2 (03:34→18:04)
[2020-12-10 04:51] LABS: BASOPHILS # (AUTO) 0.1 /CMM (0.0-0.2); BASOPHILS % (AUTO) 0.3 % (0.0-2.0); EOSINOPHILS % (AUTO) 0.5 % (0.0-6.0); LYMPHOCYTES # (AUTO) 1.3 /CMM (0.8-4.8); LYMPHOCYTES % (AUTO) 3.4 % (20.0-44.0); MEAN CORPUSCULAR HGB CONC 32 g/dl (31.0-36.0); MEAN CORPUSCULAR VOLUME 91 fL (80-96); MONOCYTES # (AUTO) 1.5 /CMM (0.1-1.30); NEUTROPHILS # (AUTO) 33.5 /CMM (1.8-8.9); NEUTROPHILS % (AUTO) 91.8 % (43.0-81.0); PLATELET COUNT (AUTO) 251 /CMM (150-450); RED BLOOD CELL COUNT(AUTO) 2.23 MIL/uL (4.5-6.0)
[2020-12-10 04:57] LABS: HEMATOCRIT 20 % (39-51); HEMOGLOBIN 6.5 g/dL (13.5-17.5); WHITE BLOOD COUNT (AUTO) 36.5 K/uL (4.3-11.0)
[2020-12-10 05:01] LABS: CALCIUM, SERUM 7.4 mg/dL (8.5-10.1); MAGNESIUM 1.9 mg/dL (1.8-2.4); PHOSPHORUS 7.9 mg/dL (2.5-4.9); POTASSIUM 4.3 mmol/L (3.5-5.1)
[2020-12-10 05:32] LABS: BAND % (MANUAL) 2 % (0.0-5.0); LYMPHOCYTES % (MANUAL) 1 % (16-48); MONOCYTES % (MANUAL) 13 % (0-11.0); NEUTROPHILS % (MANUAL) 84 (42-76)
--- NOTE | 2020-12-10 07:20 | NUR ---
ICU NOTES Received patient with ETT to vent, AC mode. No respiratory distress noted at this time. Unable to follow command, mild agitation noted, increased sedation of Diprivan @60mcg/kg/min. ANUPAMA PICC intact, On Heparin drip, running @1350u/hr. Left Judie intact, with good waveform. SBP remained >90, on Levo running @ 0.1 mcg/kg/min. Left fem HD cath intact. Soft wrist B/L restraints on for safety. Jett cath intact, noted with clear yellow urine output. Isolation precaution for Covid maintained and observed. safety measures in place, will continue to monitor.
[2020-12-10] MEDS: PROPOFOL 100 ML IV PRN ×5 (08:01→22:06)
[2020-12-10] MEDS: QUETIAPINE FUMARATE 25 MG TABLET PO SCH ×2 (08:18→17:15)
[2020-12-10] MEDS: DEXAMETHASONE SOD PHOSPHATE 10 MG/ML VIAL IV SCH (08:18)
[2020-12-10] MEDS: PANTOPRAZOLE 40 MG/PACK PACK NG SCH (08:18)
[2020-12-10] MEDS: ASPIRIN 81 MG TAB.CHEW PO SCH (08:18)
[2020-12-10] MEDS: LINEZOLID RTU BAG 600 MG in PREMIX 1 EA IV SCH ×2 (08:19→21:25)
--- NOTE | 2020-12-10 12:55 | NUR ---
ICU NOTES PER DR. BURGER TO REMOVE A-LINE, ALSO TO CHANGE PICC LINE ACCESS TO MIDLINE ACCESS. WILL CONTINUE TO MONITOR.
--- NOTE | 2020-12-10 14:00 | NUR ---
ICU NOTES REMOVED SIGRID AND APPLY PRESSURE DRESSING, NO BLEEDING NOTED, WILL CONTINUE TO MONITOR.
--- NOTE | 2020-12-10 15:30 | NUR ---
ICU NOTES REMOVED PICC LINE ON ANUPAMA PER DR. BURGER, REMOVED 33CM AND APPLIED PRESSURE DRESSING, WILL CONTINUE TO MONITOR.
[2020-12-10] MEDS: MEROPENEM 500 MG in IV NS 0.9% 50 ML IV SCH (16:52)
[2020-12-10] MEDS ORDERED: VANCOMYCIN 1 GM in IV D5W 250ml IV ONE (17:00)
[2020-12-10] MEDS ORDERED: VANCOMYCIN 500 MG in IV D5W 100ml IV ONE (18:00)
--- NOTE | 2020-12-10 18:39 | NUR ---
ICU NOTES Patient with ETT to vent, AC mode. No respiratory distress noted throughout the shift. Sedated on Diprivan @70mcg/kg/min.ELIE midline intact, on Levo running @ 0.1 mcg/kg/min. Left fem HD cath intact. Soft wrist B/L restraints on for safety. Jett cath intact, noted with clear yellow urine output. Isolation precaution for Covid maintained and observed. safety measures in place, will endorse to steward/stewardess night nurse for oliver.
[2020-12-11] VITALS (86 sets, daily range): BP systolic 82–140; BP diastolic 48–101
[2020-12-11] MEDS: PROPOFOL 100 ML IV PRN ×6 (03:09→20:20)
--- NOTE | 2020-12-11 03:48 | NUR ---
RT NOTE Pt Rec'd orally intubated via ETT sz 7.0 secured @ 24cm at the lipline. Pt on [facility] vent on AC mode settings as charted. Pt sx'd for thick mod amt of blood tinged secretions. ETT patent and secured. Alarms are set and audible. Ambu bag bedside. Vent plugged into red outlet. will continue to monitor closely. Addendum: 12/11/20 at 0350 by SHARAN BARRAZA RT Amended: Links added.
[2020-12-11 04:35] LABS: BASOPHILS # (AUTO) 0.1 /CMM (0.0-0.2); BASOPHILS % (AUTO) 0.5 % (0.0-2.0); EOSINOPHILS % (AUTO) 0.8 % (0.0-6.0); HEMATOCRIT 21 % (39-51); LYMPHOCYTES # (AUTO) 1.5 /CMM (0.8-4.8); LYMPHOCYTES % (AUTO) 4.9 % (20.0-44.0); MEAN CORPUSCULAR HGB CONC 33 g/dl (31.0-36.0); MEAN CORPUSCULAR VOLUME 89 fL (80-96); MONOCYTES # (AUTO) 1.4 /CMM (0.1-1.30); MONOCYTES % (AUTO) 4.8 % (2.0-12.0); NEUTROPHILS # (AUTO) 26.8 /CMM (1.8-8.9); PLATELET COUNT (AUTO) 259 /CMM (150-450); RED BLOOD CELL COUNT(AUTO) 2.31 MIL/uL (4.5-6.0)
[2020-12-11 04:47] LABS: HEMOGLOBIN 6.8 g/dL (13.5-17.5); WHITE BLOOD COUNT (AUTO) 30.1 K/uL (4.3-11.0)
[2020-12-11 04:55] LABS: CALCIUM, SERUM 7.5 mg/dL (8.5-10.1); CREATININE 3.7 mg/dL (0.6-1.3); POTASSIUM 4.9 mmol/L (3.5-5.1)
--- NOTE | 2020-12-11 07:15 | NUR ---
SALESPERSON TRAILERS AND MOTOR HOMES NOTES RECEIVED PATIENT SEDATED , ON VENT SETTING ORDERED SPO2 OF 97% , ETT 7.0/[address] , SR 85 ON BEDSIDE MONITOR , FC DRAINING VIA GRAVITY , OGT PATENT AND INTACT WITH GLUCERNA @ 45ML/HR WITH 5ML RESIDUALS NOTED , L FEMORAL HD CATH CLEAN DRY AND INTACT , ELIE ML AND LAC ML PATENT AND INTACT WITH DIPRIVAN @ 70MCG/KG/MIN , NS @ TKO , LEVOPHED @ 0.05MCG/KG/MIN INFUSING WELL , ISOLATION PRECAUTION OBSERVED , NO ACTIVE BLEEDING , WILL CONTINUE TO MONITOR
[2020-12-11 07:29] LABS: BAND % (MANUAL) 1 % (0.0-5.0); LYMPHOCYTES % (MANUAL) 4 % (16-48); MONOCYTES % (MANUAL) 10 % (0-11.0); MYELOCYTES % 2 % (0-0); NEUTROPHILS % (MANUAL) 83 (42-76)
--- NOTE | 2020-12-11 07:40 | NUR ---
TANKAGE SUPERVISOR NOTES ATTEMPTED TO DO SEDATION VACATION , DIPRIVAN @ 40MCG/KG/MIN , PT NOTED WITH AGITATION , HR 110 , RR 35CPM , NOTED WITH DISTRESS , PT AWAKE , TRACKS , FOLLOW SIMPLE COMMANDS , WILL INCREASE SEDATION PER PROTOCOL , WILL CONTINUE TO MONITOR ,
--- NOTE | 2020-12-11 08:00 | NUR ---
SCIENCE ANALYST NOTES NOTIFIED DR FIGUEROA REGARDING HGB OF 6.8 , PER MD RE CHECK H/H AND GIVE ONE UNIT IF HEMOGLOBIN IS BELOW 7 , DISCUSSED THAT DR DE LA TORRE ORDERED 1 UNIT PRBC , PER MD STILL RE CHECK H/H , ORDER CARRIED OUT
[2020-12-11] MEDS: MEROPENEM 500 MG in IV NS 0.9% 50 ML IV SCH ×2 (08:35→20:19)
[2020-12-11] MEDS: PANTOPRAZOLE 40 MG/PACK PACK NG SCH (08:35)
[2020-12-11] MEDS: ASPIRIN 81 MG TAB.CHEW PO SCH (08:35)
[2020-12-11] MEDS: DEXAMETHASONE SOD PHOSPHATE 10 MG/ML VIAL IV SCH (08:35)
[2020-12-11] MEDS: QUETIAPINE FUMARATE 25 MG TABLET PO SCH ×2 (08:36→16:19)
[2020-12-11] MEDS: NOREPINEPHRINE 8 MG in IV NS 0.9% 242 ML IV PRN (08:39)
[2020-12-11] MEDS: LINEZOLID RTU BAG 600 MG in PREMIX 1 EA IV SCH (09:21)
[2020-12-11 09:23] LABS: HEMOGLOBIN 6.9 g/dL (13.5-17.5)
[2020-12-11] MEDS: HYDROMORPHONE 1 MG/1 ML DISP.SYRIN IV PRN (10:27)
[2020-12-11] MEDS ORDERED: VANCOMYCIN 500 MG in IV D5W 100 ML IV PRN (11:00)
[2020-12-11] MEDS ORDERED: GUAIFENESIN 300 MG/15 ML UDC GT SCH (12:30)
--- NOTE | 2020-12-11 15:50 | NUR ---
SWEATER OPERATOR NOTES NOTIFIED DR CARRILLO THAT HD SCHULEDE WITH BE AFTER 7 , THERE IS A PENDING 1 UNIT PRBC , DISCUSSED CHEST XRAY , PT ANASARCA , LOW URINE OUTPUT , PER MD OK TO GIVE BLOOD NOW , ORDER CARRIED OUT
--- NOTE | 2020-12-11 16:34 | NUR ---
FINANCIAL SERVICES PROFESSIONAL NOTES PT STABLE AT THIS TIME , NO TRANSFUSION REACTION NOTED AFTER 15 MINUTES OF INITIAL BLOOD TRANSFUSION , VSS AFEBRILE , WILL CONTINUE TO MONITOR ,
[2020-12-11] MEDS: GUAIFENESIN 300 MG/15 ML UDC GT SCH (17:09)
--- NOTE | 2020-12-11 19:00 | NUR ---
RECEIVED PT ON BED SEDATED, ON ETT/VENT SETTING PER MD FIO2 50% SPO2 95% NO SIGN OF RESPIRATORY DISTRESS AND NO PAIN NOTED, TELE MONITOR READS SINUS RHYTHM 80'S WITH INVERTED T WAVE MD IS AWARE, HAVE OGTUBE PLACEMENT WAS CHECKED RESIDUAL 5ML TOLERATING WELL,HAVE ENAMORADO CATHETER IN PLACE DRAINING YELLO URINE VIA GRAVITY HAVE LEFT FEM HD CRISTIAN, ELIE MIDLINE AND LAC MIDLINE PATENT CDI, FLUSHED WITH ONGOING PROPOFOL 70MCG/KG/MIN INFUSING WELL, HAVE BILATERAL WRIST RESTRAINTS CIRCULATION CHECKED, BED ON LOWEST POSITION AND LOCKED SIDE RAIL UP X 2 CALL LIGHT WITHIN REACH, DROPLET ISOALTION MAINTAIN FOR COVID 1, WILL CONT TO MONITOR
[2020-12-12] VITALS (52 sets, daily range): BP systolic 82–135; BP diastolic 54–85
--- NOTE | 2020-12-12 | NUR ---
PT COMPLETED HD WITH OUTPUT OF 2000ML, STILL ON ETT/VENT SETTING PER MD SPO2 93% SEDATED, LATEST V/S 102/64 HR 98 RR 25 SPO2 92% TEMP 97.8 NO SIGN OF ANY DISTRESS WILL CONT TO MONITOR
[2020-12-12] MEDS: PROPOFOL 100 ML IV PRN ×7 (00:11→23:18)
[2020-12-12] MEDS: Z GUARD REMEDY 2 OZ OINT TP PRN (03:31)
--- NOTE | 2020-12-12 04:06 | NUR ---
PT SPO2 MAINTAINING ON 89-90% EVEN AFTER SUCTIONING, CALLED RT AND INCREASE FIO2 TO 60% SPO2 GOES UP TO 94% WILL CONT TO MONITOR THE PT
[2020-12-12 04:24] LABS: BASOPHILS # (AUTO) 0.1 /CMM (0.0-0.2); BASOPHILS % (AUTO) 0.3 % (0.0-2.0); EOSINOPHILS % (AUTO) 0.7 % (0.0-6.0); HEMATOCRIT 22 % (39-51); HEMOGLOBIN 7.5 g/dL (13.5-17.5); LYMPHOCYTES # (AUTO) 0.9 /CMM (0.8-4.8); LYMPHOCYTES % (AUTO) 3.2 % (20.0-44.0); MEAN CORPUSCULAR HGB CONC 34 g/dl (31.0-36.0); MEAN CORPUSCULAR VOLUME 89 fL (80-96); MONOCYTES # (AUTO) 1.5 /CMM (0.1-1.30); MONOCYTES % (AUTO) 5.4 % (2.0-12.0); NEUTROPHILS # (AUTO) 24.2 /CMM (1.8-8.9); NEUTROPHILS % (AUTO) 90.4 % (43.0-81.0); PLATELET COUNT (AUTO) 243 /CMM (150-450); RED BLOOD CELL COUNT(AUTO) 2.49 MIL/uL (4.5-6.0); WHITE BLOOD COUNT (AUTO) 26.8 K/uL (4.3-11.0)
[2020-12-12 04:39] LABS: CALCIUM, SERUM 7.5 mg/dL (8.5-10.1); CREATININE 3.5 mg/dL (0.6-1.3); POTASSIUM 5.3 mmol/L (3.5-5.1)
[2020-12-12] MEDS: GUAIFENESIN 300 MG/15 ML UDC GT SCH ×5 (05:10→23:15)
[2020-12-12] MEDS: GLUCERNA 1.2 1,000 ML BOTTLE NG PRN (05:10)
[2020-12-12 05:16] LABS: ABG BASE EXCESS 3.5 mmol/L; ABG OXYGEN SATURATION 95.9 % (92.0-98.5); ABG PCO2 36.2 mmHg (35.0-45.0); ABG PO2 85.4 mmHg (75.0-100.0); AaDO2 302.6 mmHg; COHb 1.5 % (0.5-1.5); MetHb 0.7 % (0.0-1.5); O2Hb 93.8 % (94.0-97.0); PEEP,BG 5 cm H2O; SITE, ABG Right Radial; VT, ABG 450 mL
--- NOTE | 2020-12-12 06:55 | NUR ---
PT ON BED SEDATED, ON ETT VENT SETTING PER MD FIO2 60% FIO2 92% NO SIGN AND SYMPTOMS OF DISTRESS, NO SIGNIFICANT CHANGES ON CONDITION NOTED ALL NEEDS ATTENDED, BED SIDE MONITOR READS SINUS RHYTHM 90'WITH INVERTED T WAVES, BED ON LOWEST POSITION AND LOCKED SIDE RAILS UP X 2 CALL LIGHT WITHIN REACH WILL CONT TO MONITOR
--- NOTE | 2020-12-12 07:30 | NUR ---
RN NOTES PER XHEST xRAY RESULT Tracheostomy tube and nasogastric tubes remain in place. Complete opacification of the right hemithorax is again seen. Atherosclerotic aorta. Pulmonary vascular congestion and left lower lobe atelectasis or infiltrate. No interval change.
--- NOTE | 2020-12-12 08:00 | NUR ---
RN NOTES RECEIVED PATIENT IN THE BED EET A VENT SETTING. PATIENT HAS NO ACUTE RESPIRATORY DISTRESS, SEDATED DIPRIVAN 70 MCG/KG/HR. ALSO START MERREM ANTIBIOTIC 100 ML/HR. PATIENT HAS GENERALIZED EDEMA, OGT INTACT, RUNNING GLUCERNS 45 ML/HR , ADMINISTERED SCHEDULED MEDICATION VIS OGT, SUCTION, ORAL CARE DONE. RESIDUAL O ML, AND PLACEMENT ALSO CHECKED. PATIENT ABDOMEN HARD DURING PALPATION, PRECENT BOWEL SOUNDS. NECROTIC DOSCOLORATION OF BILATERAL LOWER EXTREMOTIES, COOL DURING TAUCH, PAD ON LEFT LOWER LEG, AND ON RIGHT TOES. SEEN PATIENT VIA HOSPITALIST, ORDER IS MONITOR, AND DAILY LABS AT THIS TIME ASSIST TURN AND REPOSTION Q 2 HR. T-99. WILL MONITORING.
--- NOTE | 2020-12-12 08:03 | NUR ---
RT PATIENT REMAINS ORALLY INTUBATED ON [facility] VENT WITH ORDERED SETTINGS ZACKERY WELL. VENT ALARMS CHECKED + AUDIBLE. CUFF CHECKED BOUNTY TRAPPER. AIRWAY SECURE AND PATENT. PATIENT SUCTIONED WITH SMALL AMT OF JASSO SECRETIONS. PATIENT SEDATED, APPEARS COMFORTABLE AND IN NO DISTRESS. AMBU BAG AT HOB. CONT CURRENT PLAN OF RESP CARE. Addendum: 12/14/20 at 0803 by FREEDOM HE RT Amended: Links added.
[2020-12-12] MEDS: PANTOPRAZOLE 40 MG/PACK PACK NG SCH (08:51)
[2020-12-12] MEDS: DEXAMETHASONE SOD PHOSPHATE 10 MG/ML VIAL IV SCH (08:51)
[2020-12-12] MEDS: QUETIAPINE FUMARATE 25 MG TABLET PO SCH ×2 (08:51→17:18)
[2020-12-12] MEDS: ASPIRIN 81 MG TAB.CHEW PO SCH (08:51)
[2020-12-12] MEDS: MEROPENEM 500 MG in IV NS 0.9% 50 ML IV SCH (08:52)
[2020-12-12] MEDS ORDERED: VANCOMYCIN 1 GM in IV D5W 250 ML IV SCH (09:00)
[2020-12-12] MEDS: HYDROMORPHONE 1 MG/1 ML DISP.SYRIN IV PRN (10:55)
--- NOTE | 2020-12-12 10:55 | NUR ---
rn notes administered Dilaudid 1 mg /ml iv push for generalized pain, bp 104/67, p-104, r-29, o2-92. will monitoring.
--- NOTE | 2020-12-12 11:25 | NUR ---
RN NOTES CT OF CHEST DONE, TAKEN PATIENT DOWN TO THE READIALOGY.
--- NOTE | 2020-12-12 12:30 | NUR ---
rn notes Large right pleural effusion with hyperdense components within the effusion suggesting hemorrhagic components . There are also septated / nodular components within the pleural effusion on the right which could represent a complex septated pleural effusion and/or pleural based lesion/metastases. 2. Complete atelectasis of the right lung. 3. Moderate size left pleural effusion. 4. Atelectasis within the left lower lobe. Less pronounced atelectasis within the left upper lobe along the fissure. 5. Cardiomegaly and coronary artery calcifications. Calcifications of the pericardium and myocardium. 6. Anasarca.
--- NOTE | 2020-12-12 13:38 | NUR ---
RN NOTES STARTED ONE UNIT OF BLOOD TRANSFUSION AT THIS TIME 50ML/HR. PATIENT EET VENT DEPENDENT , SEDATED WITH DIPRIVAN 65 MCG/KG/HR, T-98.5, P-88, R-22, BP -94/65, O2-95. NO ACUTE RESPIRATORY DISTRESS. WILL MONITORING.
--- NOTE | 2020-12-12 14:00 | NUR ---
RN NOTES PATIENT STABLE NO ACUTE RESPIRATORY DISTRESS, V/S TAKEN BP 91/65, P-85, R-22, O2-95 , T-98.5 PATIENT HAS NO ACUTE RESPIRATORY DISTRESS, SEDATED, INCREASED BLOOD INFUSION 75 ML/HR.
--- NOTE | 2020-12-12 14:30 | NUR ---
RN NOTES PATIENT V/S STABLE, T-98.3, R-22, P84, BP 91/60, NO ACUTE RESPIRATORY DISTRESS, PATIENT SEDATED, NO ANY SIGNS AND SYMPTOMS. INCREASED INFUSION ON 125 ML/HR, INTACT ON LEFT UPPER APM MIDLINE.
[2020-12-12] MEDS: PIPERACILLIN /TAZOBACTAM 2.25 G in IV D5W 50 ML IV SCH (17:17)
--- NOTE | 2020-12-12 17:20 | NUR ---
rn notes end up blood transfusion at this time, v/s wnl, no acute respiratory distress. will monitoring.
[2020-12-12] MEDS: IV NS 0.9% 250 ML IV PRN (17:34)
[2020-12-12] MEDS ORDERED: PIPERACILLIN /TAZOBACTAM 3.375 G in IV D5W 50 ML IV SCH (18:00)
--- NOTE | 2020-12-12 18:30 | NUR ---
RN NOTES due medication administered via ogt, suction, mouth care done, assist turn and reposition q 2 hr. landry draining greenish collor output 180ml. Elevated bilateral lower and upper extremities using pillows, tolerating glucerns feeding 45 cc/hr intact, keep hob elevated for aspiration precaution. left femoral HD cath intact, iv access on left UA intact, infusing Diprivan 65 mcg/kg/hr. call light within to reach. assist turn and repostion q 2 hr. Endorsed oncoming nurse follow plan of care.
[2020-12-13] VITALS (67 sets, daily range): BP systolic 84–144; BP diastolic 58–94
[2020-12-13] MEDS: PIPERACILLIN /TAZOBACTAM 2.25 G in IV D5W 50 ML IV SCH ×3 (00:23→16:27)
[2020-12-13] MEDS: PROPOFOL 100 ML IV PRN ×6 (03:35→22:33)
[2020-12-13 05:22] LABS: BASOPHILS # (AUTO) 0.1 /CMM (0.0-0.2); BASOPHILS % (AUTO) 0.4 % (0.0-2.0); EOSINOPHILS % (AUTO) 0.8 % (0.0-6.0); HEMATOCRIT 26 % (39-51); HEMOGLOBIN 8.7 g/dL (13.5-17.5); LYMPHOCYTES # (AUTO) 0.9 /CMM (0.8-4.8); LYMPHOCYTES % (AUTO) 3.5 % (20.0-44.0); MEAN CORPUSCULAR HGB CONC 33 g/dl (31.0-36.0); MEAN CORPUSCULAR VOLUME 89 fL (80-96); MONOCYTES # (AUTO) 1.7 /CMM (0.1-1.30); MONOCYTES % (AUTO) 6.7 % (2.0-12.0); NEUTROPHILS # (AUTO) 22.6 /CMM (1.8-8.9); NEUTROPHILS % (AUTO) 88.6 % (43.0-81.0); PLATELET COUNT (AUTO) 285 /CMM (150-450); RED BLOOD CELL COUNT(AUTO) 2.95 MIL/uL (4.5-6.0); WHITE BLOOD COUNT (AUTO) 25.4 K/uL (4.3-11.0)
[2020-12-13 05:32] LABS: CALCIUM, SERUM 7.7 mg/dL (8.5-10.1); CREATININE 4.3 mg/dL (0.6-1.3)
[2020-12-13 05:40] LABS: POTASSIUM 6.3 mmol/L (3.5-5.1)
[2020-12-13] MEDS: GUAIFENESIN 300 MG/15 ML UDC GT SCH ×3 (06:11→17:09)
--- NOTE | 2020-12-13 07:58 | NUR ---
rn notes Tubes and lines as indicated above 2. Complete opacification of the right hemithorax compatible with large right pleural effusion, consolidation and/or atelectasis 3. Left lower lobe retrocardiac consolidation or atelectasis and small left pleural effusion 4. Moderate cardiomegaly and mild atherosclerotic vascular disease
--- NOTE | 2020-12-13 08:03 | NUR ---
RT PATIENT REMAINS ORALLY INTUBATED ON [facility] VENT WITH ORDERED SETTINGS ZACKERY WELL. VENT ALARMS CHECKED + AUDIBLE. CUFF CHECKED PROC TECH. AIRWAY SECURE AND PATENT. PATIENT SUCTIONED WITH SMALL AMT OF JASSO SECRETIONS. PATIENT SEDATED, APPEARS COMFORTABLE AND IN NO DISTRESS. AMBU BAG AT HOB. CONT CURRENT PLAN OF RESP CARE. Addendum: 12/14/20 at 0803 by FREEDOM HE RT Amended: Links added.
--- NOTE | 2020-12-13 08:30 | NUR ---
rn notes patient getting HD at this time. patient awake.
[2020-12-13] MEDS: PANTOPRAZOLE 40 MG/PACK PACK NG SCH (09:28)
[2020-12-13] MEDS: DEXAMETHASONE SOD PHOSPHATE 10 MG/ML VIAL IV SCH (09:29)
[2020-12-13] MEDS: QUETIAPINE FUMARATE 25 MG TABLET PO SCH ×2 (09:29→16:27)
[2020-12-13] MEDS: ASPIRIN 81 MG TAB.CHEW PO SCH (09:29)
--- NOTE | 2020-12-13 10:29 | NUR ---
RN NOTES FINISHED HD AT THIS TIME OUTPUT WAS 2L, BP-144/72, P-110, R-28, WILL MONITORING.
[2020-12-13] MEDS: HYDROMORPHONE 1 MG/1 ML DISP.SYRIN IV PRN (10:32)
--- NOTE | 2020-12-13 10:32 | NUR ---
RN NOTES ADMINISTERED DILAUDID 1 MG /ML IV PUSH FOR PAIN, PATIENT WAS BITTING EET TUB, MOVING LEGS,AND HANDS, FACIAL REFLECTION CHANGED. BP 99/68, P-98. WILL MONITORING.
[2020-12-13] MEDS: IV NS 0.9% 250 ML IV PRN (13:46)
--- NOTE | 2020-12-13 14:53 | NUR ---
rn notes Patient going to have a Thoracentesis , but unable to sign consent form. Consent form was signed by Dr Dawson .
--- NOTE | 2020-12-13 15:40 | NUR ---
RN NOTES THORACANTESIS DONE VIA RADIALOGIST Dr LAWRENCE RIGHT SIDE OF CHEST, REMOVED 800 ML OF BLOODY FLUIDS. SEND SPECIMEN FOR CYTALOGY. CHEST X-RAY DONE AFTER POST THIRACENTESIS. WILL FOLLOW UP.
--- NOTE | 2020-12-13 17:35 | NUR ---
RT PATIENT REMAINS ORALLY INTUBATED ON [facility] VENT. FIO2 INCREASED TO 80% AND PEEP TO [address] BURGER. Addendum: 12/13/20 at 1736 by FREEDOM HE RT Amended: Links added.
--- NOTE | 2020-12-13 18:37 | NUR ---
RN NOTES DUE MEDICATION ADMINISTERED VIA OGT, SUCTION, GET LATS OF SECRETION, THORACINTESIS SIDE CHECKED INTACT, NO BLEEDING NOTES, TURNED ON LEFT SIDE PER MD ORDER BECAUSE OF RIGHT SIDE EFFUSION, MONITORING BP. NEEDS ATTENDED AND ANTICIPATED, INFUSING DIPRIVAN 60 MCG/KG/HR. ON LEFT UA MIDLINE, HD CATH INTACT. ASSIST TURN AND REPIOSTION Q 2 HR. GET CALL FROM LABORATORY BODY FLUID 4+ WBC NO ORGANISM SEE, THEY WILL SENT [facility]. ENDORSED ONCOMING NURSE FOLLOW PLAN OF CARE.
--- NOTE | 2020-12-13 20:53 | NUR ---
Patient on vent support, 7.0 ETT 23cm at lip line. Small amount of secretions sxn. Addendum: 12/13/20 at 2054 by RANDOLPH AGARWAL RT Amended: Links added.
[2020-12-14] VITALS (62 sets, daily range): BP systolic 74–125; BP diastolic 39–85
[2020-12-14] MEDS: GUAIFENESIN 300 MG/15 ML UDC GT SCH ×5 (00:52→23:38)
[2020-12-14] MEDS: PIPERACILLIN /TAZOBACTAM 2.25 G in IV D5W 50 ML IV SCH ×3 (00:52→16:05)
[2020-12-14] MEDS: PROPOFOL 100 ML IV PRN ×5 (03:46→18:26)
[2020-12-14 04:28] LABS: BASOPHILS # (AUTO) 0.2 /CMM (0.0-0.2); BASOPHILS % (AUTO) 0.8 % (0.0-2.0); EOSINOPHILS % (AUTO) 0.8 % (0.0-6.0); HEMATOCRIT 28 % (39-51); HEMOGLOBIN 9.2 g/dL (13.5-17.5); LYMPHOCYTES # (AUTO) 0.7 /CMM (0.8-4.8); LYMPHOCYTES % (AUTO) 2.7 % (20.0-44.0); MEAN CORPUSCULAR HGB CONC 33 g/dl (31.0-36.0); MEAN CORPUSCULAR VOLUME 90 fL (80-96); MONOCYTES # (AUTO) 1.3 /CMM (0.1-1.30); MONOCYTES % (AUTO) 5.3 % (2.0-12.0); NEUTROPHILS # (AUTO) 22.9 /CMM (1.8-8.9); NEUTROPHILS % (AUTO) 90.4 % (43.0-81.0); PLATELET COUNT (AUTO) 357 /CMM (150-450); RED BLOOD CELL COUNT(AUTO) 3.08 MIL/uL (4.5-6.0); WHITE BLOOD COUNT (AUTO) 25.3 K/uL (4.3-11.0)
[2020-12-14 04:40] LABS: CALCIUM, SERUM 7.9 mg/dL (8.5-10.1); CREATININE 4.3 mg/dL (0.6-1.3)
[2020-12-14 04:43] LABS: POTASSIUM 6.4 mmol/L (3.5-5.1)
[2020-12-14] MEDS: HYDROMORPHONE 1 MG/1 ML DISP.SYRIN IV PRN ×2 (05:26→21:46)
[2020-12-14] MEDS: GLUCERNA 1.2 1,000 ML BOTTLE NG PRN (05:53)
[2020-12-14 06:26] LABS: ABG BASE EXCESS -0.2 mmol/L; ABG OXYGEN SATURATION 95.6 % (92.0-98.5); ABG PCO2 38.7 mmHg (35.0-45.0); ABG PH 7.415 (7.350-7.450); AaDO2 441.8 mmHg; COHb 1.3 % (0.5-1.5); MetHb 0.8 % (0.0-1.5); O2Hb 93.6 % (94.0-97.0); PEEP,BG 8 cm H2O; SITE, ABG Right Radial; VENT MODE, BG AC 22 450 80% +8; VT, ABG 450 mL
--- NOTE | 2020-12-14 07:05 | NUR ---
RN NOTES RECEIVED PT ON BED, INTUBATED , SEDATED, TOLERATING VENT SETTING WELL, ON TELE SR , HR IN 90'S , ENAMORADO DRINING TO GRAVITY, TF AT 45CC/HR RUNNING , NO RESIDUAL NOTED, IV SITES CLEAN ,DRY AND INTACT, SR UP x3, CALL LIGHT WITHIN EASY REACH, BED LOCKED AND IN LOWEST POSITION, CONTINUE TO MONITOR
--- NOTE | 2020-12-14 08:00 | NUR ---
RT PATIENT REMAINS ORALLY INTUBATED ON [facility] VENT WITH ORDERED SETTINGS ZACKERY WELL. VENT ALARMS CHECKED + AUDIBLE. CUFF CHECKED MACHINE STRAP BUCKLER. AIRWAY SECURE AND PATENT. PATIENT SUCTIONED WITH SMALL AMT OF JASSO SECRETIONS. PATIENT SEDATED, APPEARS COMFORTABLE AND IN NO DISTRESS. AMBU BAG AT HOB. CONT CURRENT PLAN OF RESP CARE. Addendum: 12/14/20 at 0803 by FREEDOM HE RT Amended: Links added.
[2020-12-14] MEDS: DEXAMETHASONE SOD PHOSPHATE 10 MG/ML VIAL IV SCH (08:28)
[2020-12-14] MEDS: ASPIRIN 81 MG TAB.CHEW PO SCH (08:28)
[2020-12-14] MEDS: PANTOPRAZOLE 40 MG/PACK PACK NG SCH (08:29)
[2020-12-14] MEDS: QUETIAPINE FUMARATE 25 MG TABLET PO SCH ×2 (08:30→16:05)
[2020-12-14] MEDS: ALBUMIN 25% 25 GM in PREMIX 1 EA IV PRN (10:44)
[2020-12-14 11:07] LABS: *HGBFRC HEMOGLOBIN A2 2.1 % (1.8-3.2)
--- NOTE | 2020-12-14 13:00 | NUR ---
RN NOTES ET SUCTIONING DONE PRN, VSS STABLE, CONTINUE TO MONITOR.
[2020-12-14] MEDS: LORAZEPAM 1 MG TABLET PO PRN (17:15)
--- NOTE | 2020-12-14 18:12 | NUR ---
RN NOTES PT REMANINS INTUBATED AND SEDATED ON DIPRIVAN AT 55 MCG/KG/MIN RUNNING , TOLERATING FIO2 AT 70% WELL, O2 SAT WNL, TF AT 45CC/HR RUNNING , NO RESIDUAL NOTED, SR UP x3, CALL LIGHT WITHIN EASY REACH, BED LOCKED AND IN LOWEST POSITION, WILL ENDOSE T O NEONATAL SURGEON NURSE FOR CONTINITUY OF CARE
--- NOTE | 2020-12-14 20:44 | NUR ---
RECEIVED PT INTUBATED 7.0 ETT SECURED AT 24CM LIP LINE. VENT ALARMS SET AND AUDIBLE. ETT CUFF CHECKED. SX'D SMALL AMT OF THICK JASSO SECRETIONS. WILL CONTINUE TO MONITOR. Addendum: 12/14/20 at 2046 by MEGAN WILLIS RT Amended: Links added.
[2020-12-14] MEDS: NOREPINEPHRINE 8 MG in IV NS 0.9% 242 ML IV PRN (22:55)
[2020-12-15] VITALS (93 sets, daily range): BP systolic 79–159; BP diastolic 36–120
[2020-12-15] MEDS: PIPERACILLIN /TAZOBACTAM 2.25 G in IV D5W 50 ML IV SCH ×3 (00:08→16:24)
[2020-12-15] MEDS: PROPOFOL 100 ML IV PRN ×6 (01:16→23:28)
[2020-12-15 04:47] LABS: BASOPHILS # (AUTO) 0.1 /CMM (0.0-0.2); BASOPHILS % (AUTO) 0.5 % (0.0-2.0); HEMATOCRIT 28 % (39-51); HEMOGLOBIN 9.3 g/dL (13.5-17.5); LYMPHOCYTES % (AUTO) 4.1 % (20.0-44.0); MEAN CORPUSCULAR HGB CONC 33 g/dl (31.0-36.0); MEAN CORPUSCULAR VOLUME 91 fL (80-96); MONOCYTES # (AUTO) 1.8 /CMM (0.1-1.30); MONOCYTES % (AUTO) 7.5 % (2.0-12.0); NEUTROPHILS # (AUTO) 20.3 /CMM (1.8-8.9); NEUTROPHILS % (AUTO) 85.9 % (43.0-81.0); PLATELET COUNT (AUTO) 428 /CMM (150-450); RED BLOOD CELL COUNT(AUTO) 3.08 MIL/uL (4.5-6.0); WHITE BLOOD COUNT (AUTO) 23.7 K/uL (4.3-11.0)
[2020-12-15 04:52] LABS: CALCIUM, SERUM 7.8 mg/dL (8.5-10.1); CREATININE 4.1 mg/dL (0.6-1.3); POTASSIUM 5.9 mmol/L (3.5-5.1)
[2020-12-15] MEDS: HYDROMORPHONE 1 MG/1 ML DISP.SYRIN IV PRN (05:42)
[2020-12-15] MEDS: GUAIFENESIN 300 MG/15 ML UDC GT SCH ×4 (05:42→23:20)
[2020-12-15] MEDS: MAGNESIUM HYDROXIDE 30 ML UDC PO PRN (05:42)
--- NOTE | 2020-12-15 07:30 | NUR ---
RN NOTES RECEIVED PT INTUBATED AND SEDATED, TOLERATING SETTINGS OF 70% FIO2 AND PEEP OF 5, OGT IN PLACE WITH GLUCERNA AT 45ML.HR, ENAMORADO INTACT, ELIE ML AND LAC ML IN PLACE, LEFT FEMORAL HD CATHETER IN PLACE, DIPRIVAN RUNNING AT 50 ML/HR, LEVO 0.1 AND N/S TKO, APPEARS COMFORTABLE, BED LOCKED AND KEPT IN LOWEST POSITION, CARES CONTINUE TODAY
[2020-12-15 07:34] LABS: ABG BASE EXCESS 1.7 mmol/L; ABG OXYGEN SATURATION 95.1 % (92.0-98.5); ABG PCO2 43.3 mmHg (35.0-45.0); ABG PH 7.407 (7.350-7.450); ABG PO2 84.4 mmHg (75.0-100.0); AaDO2 368.2 mmHg; MetHb 0.8 % (0.0-1.5); O2Hb 92.4 % (94.0-97.0); PEEP,BG 8 cm H2O; SITE, ABG Right Radial; VT, ABG 450 mL
[2020-12-15] MEDS: DEXAMETHASONE SOD PHOSPHATE 10 MG/ML VIAL IV SCH (08:05)
[2020-12-15] MEDS: QUETIAPINE FUMARATE 25 MG TABLET PO SCH ×2 (08:05→16:25)
[2020-12-15] MEDS: PANTOPRAZOLE 40 MG/PACK PACK NG SCH (08:05)
[2020-12-15] MEDS: ASPIRIN 81 MG TAB.CHEW PO SCH (08:06)
[2020-12-15] MEDS: IV NS 0.9% 250 ML IV PRN (12:58)
[2020-12-15] MEDS: NOREPINEPHRINE 8 MG in IV NS 0.9% 242 ML IV PRN (12:59)
--- NOTE | 2020-12-15 13:59 | NUR ---
VENT CHANGES BELOW PER DR. BURGER: FIO2 60% SPO2 94% Addendum: 12/15/20 at 1400 by ISABELLE OLSON RT Amended: Links added.
--- NOTE | 2020-12-15 14:30 | NUR ---
shift back on 70% fio2 due to 86% spo2. Addendum: 12/15/20 at 1430 by ISABELLE OLSON RT Amended: Links added.
[2020-12-15] MEDS: GLUCERNA 1.2 1,000 ML BOTTLE NG PRN (16:27)
--- NOTE | 2020-12-15 18:36 | NUR ---
RN CLOSING NOTES PATIENT REMAINS SEDATED AND INTUBATED, SETTINGS FIO2 80% WITH PEEP OF 5, ELIE ML AND LAC MIDLINES INTACT, DIPRIVAN AT 70, LEVO AT 0.1, N/S TKO, LEFT FEMORAL HD CATH IN PLACE, ENAMORADO IN PLACE, APPEARS COMFORTABLE AT THIS TIME, BED LOCKED AND KEPT IN LOWEST POSITION, WILL ENDORSE TO PARK INTERPRETER
--- NOTE | 2020-12-15 19:24 | NUR ---
RECEIVED PT ORALLY INTUBATED WITH 7.0 ETT SECURED AT 24CM LIP LINE ON VENT WITH THE SETTINGS OF AC 22, VT 450, PEEP 8 , FIO2 80%. SX'D DONE. VENT ALARMS SET AND AUDIBLE. ETT CUFF CHECKED. VENT PLUGGED INTO RED OUTLET. WILL CONTINUE TO MONITOR PT T/O SHIFT.
--- NOTE | 2020-12-15 20:00 | NUR ---
Received patient sedated on Diprivan gtt at 70 mcg and intubated to vent on full vent supoort. Prescribed vent settings well tolerated saturations 92%-93%.Suctioned moderate thick white secretions orally.No respiratory distress noted.SR per monitor with Levophed gtt infusing for BP support and will titrate accordingly.OGT feeding infusing.OGT placement verified & patent Residual checked.Maintained HOB elevated.HD patient with small urine per FC.Turned and repositioned.Continue monitoring.
--- NOTE | 2020-12-15 22:30 | NUR ---
Patient saturation down to 87%.Secretion suctioned and repositioned.Lluvia,RT notified. Increased FIO2 100%.O2 sat went up to 94%.Maintained HOB elevated.NAD noted.
[2020-12-16] VITALS (96 sets, daily range): BP systolic 70–137; BP diastolic 44–97
[2020-12-16] MEDS: PIPERACILLIN /TAZOBACTAM 2.25 G in IV D5W 50 ML IV SCH ×3 (00:31→16:16)
[2020-12-16] MEDS: PROPOFOL 100 ML IV PRN ×7 (03:40→22:21)
[2020-12-16 04:56] LABS: BASOPHILS # (AUTO) 0.2 /CMM (0.0-0.2); BASOPHILS % (AUTO) 0.8 % (0.0-2.0); EOSINOPHILS % (AUTO) 1.6 % (0.0-6.0); HEMATOCRIT 27 % (39-51); LYMPHOCYTES # (AUTO) 0.9 /CMM (0.8-4.8); LYMPHOCYTES % (AUTO) 4.3 % (20.0-44.0); MEAN CORPUSCULAR HGB CONC 33 g/dl (31.0-36.0); MEAN CORPUSCULAR VOLUME 91 fL (80-96); MONOCYTES # (AUTO) 1.6 /CMM (0.1-1.30); MONOCYTES % (AUTO) 7.5 % (2.0-12.0); NEUTROPHILS # (AUTO) 18.3 /CMM (1.8-8.9); NEUTROPHILS % (AUTO) 85.8 % (43.0-81.0); PLATELET COUNT (AUTO) 539 /CMM (150-450); RED BLOOD CELL COUNT(AUTO) 3.01 MIL/uL (4.5-6.0); WHITE BLOOD COUNT (AUTO) 21.3 K/uL (4.3-11.0)
[2020-12-16 05:12] LABS: CALCIUM, SERUM 7.9 mg/dL (8.5-10.1); CREATININE 4.1 mg/dL (0.6-1.3)
[2020-12-16] MEDS: IV NS 0.9% 250 ML IV PRN ×2 (05:27→16:18)
[2020-12-16] MEDS: GUAIFENESIN 300 MG/15 ML UDC GT SCH ×4 (05:27→23:25)
--- NOTE | 2020-12-16 06:00 | NUR ---
Patient remains sedated and tolerating current vent settings.Oral care done.Bed bath done. VS remains stable.Levophed gtt titrated down to 0.05 mcg.Diprivan gtt remains at 70 mcg. Turned from supine to left side and vice versa.Right side offloaded.NAD noted.Will endorse to day shift for furhter care and mangaement.
--- NOTE | 2020-12-16 07:31 | NUR ---
RN OPENING NOTES RECEIVED PT SEDATED AND INTUBATED, SETTINGS CURRENTLY 100% FIO2 WITH PEEP OF 8. OGT IN PLACE WITH GLUCERNA AT 45ML/HR, ELIE MIDLINE AND LAC MIDLINES INTACT. DIPRIVAN AT 70, LEVO AT .05, N/S TKO, LEFT FEMORAL HD CATH IN PLACE, ENAMORADO INTACT, BED LOCKED AND KEPT IN LOWEST POSITION, WILL CONTINUE CARES TODAY.
[2020-12-16] MEDS: PANTOPRAZOLE 40 MG/PACK PACK NG SCH (08:05)
[2020-12-16] MEDS: ASPIRIN 81 MG TAB.CHEW PO SCH (08:05)
[2020-12-16] MEDS: QUETIAPINE FUMARATE 25 MG TABLET PO SCH ×2 (08:05→17:01)
[2020-12-16] MEDS: DEXAMETHASONE SOD PHOSPHATE 10 MG/ML VIAL IV SCH (08:05)
[2020-12-16 08:06] LABS: ABG BASE EXCESS 0.7 mmol/L; ABG OXYGEN SATURATION 98.8 % (92.0-98.5); ABG PCO2 39.8 mmHg (35.0-45.0); ABG PH 7.419 (7.350-7.450); ABG PO2 170.9 mmHg (75.0-100.0); AaDO2 502.3 mmHg; COHb 1.8 % (0.5-1.5); MetHb 1.5 % (0.0-1.5); O2Hb 95.5 % (94.0-97.0); SITE, ABG Right Radial
[2020-12-16] MEDS: HYDROMORPHONE 1 MG/1 ML DISP.SYRIN IV PRN (08:35)
[2020-12-16] MEDS: NOREPINEPHRINE 8 MG in IV NS 0.9% 242 ML IV PRN (09:20)
[2020-12-16] MEDS: NEPRO 1,000 ML BOTTLE GT PRN (15:34)
[2020-12-16 15:57] LABS: CALCIUM, SERUM 8.3 mg/dL (8.5-10.1); CREATININE 3.8 mg/dL (0.6-1.3)
[2020-12-16 16:19] LABS: POTASSIUM 6.2 mmol/L (3.5-5.1)
--- NOTE | 2020-12-16 16:50 | NUR ---
RN NOTES K+ = 6.2. CRITICAL LAB RESULT REPORTED TO DR YAÑEZ.
--- NOTE | 2020-12-16 19:24 | NUR ---
RN CLOSING NOTES NO SIGNIFICANT CHANGE NOTED. FI02 ADJSUTED TO 100%. DIALYSIS DONE TWICE DUE TO POTASSIUM LEVEL. BMP PENDING POST HD. REMAINS ON LEVO AND DIPRIVAN. TOLERATING FEEDING WELL. KEPT CLEAN AND COMFORTABLE. WILL ENDORSE FOR CONTINUITY OF CARE.
--- NOTE | 2020-12-16 19:24 | NUR ---
VEHICLE ASSEMBLER OPENING NOTES: Rec'd pt in bed, intubated 7.0/24cm at the lip and sedated. Tolerating vent settings well. No resp distress noted at this time. SR on tele monitor. ELIE midline patent and flushed w/ Diprivan infusing at 70mcg and Levo infusing at 0.1mcg/kg. Will titrate per protocol. OGT patent, flushed and verified. Nepro infusing at 30ml/hr, tolerating feeding well. Bilateral soft wrist restraints in place. Left femoral HD cath noted. Jett catheter in place. Safety measures in place. Will continue to monitor.
--- NOTE | 2020-12-16 20:02 | NUR ---
Patient received on full ventilatory support AC 22 450 100% Fi02 Peep of 8. Airway is patent, suction prn with mild secretions. Vent alarms are audible and plugged into red outlet, ambu bag on beside.
[2020-12-16 21:37] LABS: CALCIUM, SERUM 8.1 mg/dL (8.5-10.1); CREATININE 3.6 mg/dL (0.6-1.3); POTASSIUM 5.6 mmol/L (3.5-5.1)
[2020-12-17] VITALS (94 sets, daily range): BP systolic 68–151; BP diastolic 39–93
[2020-12-17] MEDS: PIPERACILLIN /TAZOBACTAM 2.25 G in IV D5W 50 ML IV SCH ×3 (01:20→16:28)
[2020-12-17] MEDS: PROPOFOL 100 ML IV PRN ×7 (02:10→23:14)
[2020-12-17 04:31] LABS: BASOPHILS # (AUTO) 0.3 /CMM (0.0-0.2); BASOPHILS % (AUTO) 1.4 % (0.0-2.0); EOSINOPHILS % (AUTO) 1.9 % (0.0-6.0); HEMATOCRIT 27 % (39-51); HEMOGLOBIN 8.9 g/dL (13.5-17.5); LYMPHOCYTES # (AUTO) 0.6 /CMM (0.8-4.8); LYMPHOCYTES % (AUTO) 2.7 % (20.0-44.0); MEAN CORPUSCULAR HGB CONC 33 g/dl (31.0-36.0); MEAN CORPUSCULAR VOLUME 92 fL (80-96); MONOCYTES # (AUTO) 1.4 /CMM (0.1-1.30); MONOCYTES % (AUTO) 6.5 % (2.0-12.0); NEUTROPHILS % (AUTO) 87.5 % (43.0-81.0); PLATELET COUNT (AUTO) 633 /CMM (150-450); RED BLOOD CELL COUNT(AUTO) 2.91 MIL/uL (4.5-6.0); WHITE BLOOD COUNT (AUTO) 21.7 K/uL (4.3-11.0)
[2020-12-17 04:40] LABS: CALCIUM, SERUM 8.3 mg/dL (8.5-10.1); CREATININE 3.9 mg/dL (0.6-1.3); POTASSIUM 5.7 mmol/L (3.5-5.1)
[2020-12-17] MEDS: GUAIFENESIN 300 MG/15 ML UDC GT SCH ×4 (05:07→23:13)
--- NOTE | 2020-12-17 05:19 | NUR ---
Patient received on full ventilatory support AC 22 450 90% Fi02 Peep of 8. Airway is patent, suction prn with minimal secretions. Vent alarms are audible and plugged into red outlet, ambu bag on beside. Patient remained stable throughout shift. Addendum: 12/18/20 at 0529 by RANDOLPH AGARWAL RT Patient received on full ventilatory support AC 22 450 90% Fi02 Peep of 8. Saturation at 93%, ETT 7.0 22cm at lip line. Airway is patent, suction prn with minimal secretions. Vent alarms are audible and plugged into red outlet, ambu bag on beside. Patient remained stable throughout shift.
--- NOTE | 2020-12-17 07:05 | NUR ---
RN NOTES RECEIVED PT ON BED, INTUBATED , SEDATED, TOLERATING VENT SETTING WELL, ON TELE SR , HR IN 90'S , ENAMORADO DRINING TO GRAVITY, VSS STABLE, TF AT 30CC/HR RUNNING , NO RESIDUAL NOTED, IV SITES CLEAN ,DRY AND INTACT, SR UP x3, CALL LIGHT WITHIN EASY REACH, BED LOCKED AND IN LOWEST POSITION, CONTINUE TO MONITOR .
[2020-12-17 08:20] LABS: ABG BASE EXCESS 1.6 mmol/L; ABG OXYGEN SATURATION 98.8 % (92.0-98.5); ABG PCO2 43.8 mmHg (35.0-45.0); ABG PH 7.401 (7.350-7.450); ABG PO2 174.4 mmHg (75.0-100.0); AaDO2 494.8 mmHg; COHb 2.9 % (0.5-1.5); MetHb 2.7 % (0.0-1.5); O2Hb 93.3 % (94.0-97.0); PEEP,BG 8 cm H2O; SITE, ABG Right Radial; VENT MODE, BG AC 100%; VT, ABG 450 mL
[2020-12-17] MEDS: ASPIRIN 81 MG TAB.CHEW PO SCH (08:35)
[2020-12-17] MEDS: DEXAMETHASONE SOD PHOSPHATE 10 MG/ML VIAL IV SCH (08:35)
[2020-12-17] MEDS: PANTOPRAZOLE 40 MG/PACK PACK NG SCH (08:36)
[2020-12-17] MEDS: LORAZEPAM 1 MG TABLET PO PRN (08:36)
[2020-12-17] MEDS: PROSOURCE / PROSTAT (PYXIS) 30 ML UDC GT SCH (08:36)
[2020-12-17] MEDS: QUETIAPINE FUMARATE 25 MG TABLET PO SCH ×2 (08:36→16:27)
[2020-12-17] MEDS: NOREPINEPHRINE 8 MG in IV NS 0.9% 242 ML IV PRN (17:00)
--- NOTE | 2020-12-17 18:52 | NUR ---
RN NOTES PT REMAINS INTUBATED AND SEDATED , ON LEVO FOR BP SUPPORT AT THIS TIME, DIPRIVAN AT 70MCG/KG/MIN RUNNING , TF AT 30CC/HR . NO RESIDUAL NOTED, ENAMORADO INTACT WITH SMALL AMOUNT OF URINE , SR UP x3, BED LOCKED AND IN LOWEST POSITION, WILL ENDORSE TO COMPLIANCE CLERK NURSE FOR CONTINUITY OF CARE .
[2020-12-17] MEDS: NEPRO 1,000 ML BOTTLE GT PRN (23:16)
[2020-12-18] VITALS (97 sets, daily range): BP systolic 82–144; BP diastolic 40–94
[2020-12-18] MEDS: PIPERACILLIN /TAZOBACTAM 2.25 G in IV D5W 50 ML IV SCH ×3 (01:18→16:07)
[2020-12-18] MEDS: PROPOFOL 100 ML IV PRN ×7 (01:19→21:01)
[2020-12-18 04:45] LABS: BASOPHILS # (AUTO) 0.2 /CMM (0.0-0.2); BASOPHILS % (AUTO) 1.1 % (0.0-2.0); HEMATOCRIT 24 % (39-51); HEMOGLOBIN 7.9 g/dL (13.5-17.5); LYMPHOCYTES # (AUTO) 0.8 /CMM (0.8-4.8); LYMPHOCYTES % (AUTO) 3.8 % (20.0-44.0); MEAN CORPUSCULAR HGB CONC 33 g/dl (31.0-36.0); MEAN CORPUSCULAR VOLUME 93 fL (80-96); MONOCYTES # (AUTO) 1.3 /CMM (0.1-1.30); NEUTROPHILS # (AUTO) 18.4 /CMM (1.8-8.9); NEUTROPHILS % (AUTO) 86.1 % (43.0-81.0); PLATELET COUNT (AUTO) 654 /CMM (150-450); RED BLOOD CELL COUNT(AUTO) 2.58 MIL/uL (4.5-6.0); WHITE BLOOD COUNT (AUTO) 21.3 K/uL (4.3-11.0)
[2020-12-18 05:20] LABS: CALCIUM, SERUM 8.3 mg/dL (8.5-10.1); CREATININE 3.6 mg/dL (0.6-1.3); MAGNESIUM 2.5 mg/dL (1.8-2.4); POTASSIUM 4.2 mmol/L (3.5-5.1)
[2020-12-18] MEDS: GUAIFENESIN 300 MG/15 ML UDC GT SCH ×4 (05:22→23:13)
--- NOTE | 2020-12-18 06:05 | NUR ---
FREIGHT SOLICITOR: NO SIGNIFICANT CHANGE OF CONDITION DURING THE SHIFT. REMAINS ON 90% FI02 ON VENT. SR WT PAC ON FINISH SPECIALIST. ON LEVOPHED AT 0.06MCG/KG/MIN FOR BP SUPPORT. SEDATED ON DIPRIVAN AT 75MCG/KG/MIN. OLIGURIC. HAD ONE BOWEL MOVEMENT WT DARK BROWN SOFT STOOLS IN MODERATE AMT. OGT FEEDING TOLERATED WELL. BILAT. SOFT WRIST RESTRAINTS IN PLACE TO PREVENT FROM PULLING OUT TUBINGS. SKIN AND CIRCULATION WNL. PHOSPHORUS LEVEL=8.0, PT ON HD. WILL RELAY TO DAY SHIFT TO FOLLOW-UP WT ROUNDING MD/SALES AND MARKETING ADMINISTRATOR. HOB AT 35 DEGREES, BED IN LOWEST POSITION AND LOCKED. SIDE RAILS UPX3. BED ALARM ACTIVATED. WILL CONTINUE TO MONITOR.
--- NOTE | 2020-12-18 07:15 | NUR ---
LABORER POLE CREW OPENING NOTES RECEIVED REPORT FROM PM NURSE.PT ON BED, INTUBATED , SEDATED, TOLERATING VENT SETTING WELL, ON TELE SR , HR IN 90'S , ENAMORADO CATH DRAINING TO GRAVITY, VSS STABLE, TF AT 30CC/HR RUNNING , NO RESIDUAL NOTED, IV SITES CLEAN ,DRY AND INTACT, SR UP x3, CALL LIGHT WITHIN EASY REACH, BED LOCKED AND IN LOWEST POSITION,REMAIN RESTRAINED BECAUSE OF AGITATION.WILL CONTINUE TO MONITOR .
[2020-12-18] MEDS: DEXAMETHASONE SOD PHOSPHATE 10 MG/ML VIAL IV SCH (08:15)
[2020-12-18] MEDS: PANTOPRAZOLE 40 MG/PACK PACK NG SCH (08:15)
[2020-12-18] MEDS: PROSOURCE / PROSTAT (PYXIS) 30 ML UDC GT SCH (08:15)
[2020-12-18] MEDS: ASPIRIN 81 MG TAB.CHEW PO SCH (08:15)
[2020-12-18] MEDS: QUETIAPINE FUMARATE 25 MG TABLET PO SCH ×2 (08:16→16:23)
[2020-12-18 08:25] LABS: ABG OXYGEN SATURATION 97.2 % (92.0-98.5); ABG PCO2 40.8 mmHg (35.0-45.0); ABG PH 7.401 (7.350-7.450); ABG PO2 114.6 mmHg (75.0-100.0); AaDO2 268.3 mmHg; COHb 3.8 % (0.5-1.5); O2Hb 90.6 % (94.0-97.0); PEEP,BG 8 cm H2O; SITE, ABG Right Radial; VT, ABG 450 mL
[2020-12-18] MEDS: LORAZEPAM 1 MG TABLET PO PRN (09:13)
--- NOTE | 2020-12-18 09:30 | NUR ---
MACHINE TOOL TECHNOLOGY INSTRUCTOR NOTE PATIENT'S PULSE OXIMETRY NOT READING WELL.ABG DONE.OXYGEN LEVEL IS NORMAL. AWARE.WILL CONTINUE TO MONITOR.
--- NOTE | 2020-12-18 10:30 | NUR ---
RN NOTES PT EXTUBATED PER DR TAO PIERCE , PLACED ON HIGH O2 AT 40%, 40 L, O2 SAT WNL, PT TOLERATING HIGH FLOW O2 WELL, CONTINUE TO MONITOR . Addendum: 12/18/20 at 1043 by OSIEL CLAYTON RN PLEASE DISREGARD ABOVE CHARTING , CHARTED ON A WRONG PT .
[2020-12-18] MEDS: NOREPINEPHRINE 8 MG in IV NS 0.9% 242 ML IV PRN (16:15)
--- NOTE | 2020-12-18 18:36 | NUR ---
HEAVY REPAIRER CLOSING NOTES PT ON BED, INTUBATED , SEDATED, TOLERATING VENT SETTING WELL, ON TELE SR . ENAMORADO CATH DRAINING TO GRAVITY . VSS STABLE, TF AT 30CC/HR RUNNING , NO RESIDUAL NOTED, IV SITES CLEAN ,DRY AND INTACT,DRESSING CHANGE DONE. SR UP x3, CALL LIGHT WITHIN EASY REACH, BED LOCKED AND IN LOWEST POSITION,REMAIN RESTRAINED BECAUSE OF AGITATION.ON LEVO FOR BP MAINTENANCE.WILL ENDORSE TO PM NURSE FOR ANNETTE.
--- NOTE | 2020-12-18 19:15 | NUR ---
RECEIVED PT ON BED SEDATED, ON ETT/VENT SETTING PER MD FIO2 50% SPO2 95% NO SIGN OF RESPIRATORY DISTRESS AND NO PAIN NOTED, TELE MONITOR READS SINUS RHYTHM 80'S , HAVE OGTUBE PLACEMENT WAS CHECKED RESIDUAL 5ML WITH ONGOING NEPHRO @ 30ML/HR TOLERATING WELL,HAVE ENAMORADO CATHETER IN PLACE DRAINING YELLOW URINE VIA GRAVITY HAVE LEFT FEM HD CATHETER, ELIE MIDLINE AND LAC MIDLINE PATENT CDI, FLUSHED WITH ONGOING PROPOFOL 75MCG/KG/MIN AND LEVOPHED @ 0.2 MCG/KG/MIN INFUSING WELL, HAVE BILATERAL WRIST RESTRAINTS CIRCULATION CHECKED, BED ON LOWEST POSITION AND LOCKED SIDE RAIL UP X 2 CALL LIGHT WITHIN REACH, DROPLET ISOLATION MAINTAIN FOR COVID 19, WILL CONT TO MONITOR
[2020-12-18] MEDS: IV NS 0.9% 250 ML IV PRN (22:41)
[2020-12-19] VITALS (87 sets, daily range): BP systolic 75–139; BP diastolic 50–95
[2020-12-19] MEDS: PIPERACILLIN /TAZOBACTAM 2.25 G in IV D5W 50 ML IV SCH ×3 (00:36→16:59)
[2020-12-19] MEDS: PROPOFOL 100 ML IV PRN ×3 (00:38→05:50)
--- NOTE | 2020-12-19 01:13 | NUR ---
PT ON BED STILL SEDATED ON ETT/VENT SETTING PER MD FIO2 50% SPO2 91% NO SIGN OF ANY DISTRESS NO PAIN NOTED WILL CONT TO MONITOR
[2020-12-19] MEDS: LORAZEPAM 1 MG TABLET PO PRN (03:03)
[2020-12-19 04:34] LABS: BASOPHILS # (AUTO) 0.1 /CMM (0.0-0.2); BASOPHILS % (AUTO) 0.5 % (0.0-2.0); HEMATOCRIT 24 % (39-51); HEMOGLOBIN 7.8 g/dL (13.5-17.5); LYMPHOCYTES # (AUTO) 0.5 /CMM (0.8-4.8); LYMPHOCYTES % (AUTO) 2.1 % (20.0-44.0); MEAN CORPUSCULAR HGB CONC 32 g/dl (31.0-36.0); MEAN CORPUSCULAR VOLUME 95 fL (80-96); MONOCYTES # (AUTO) 1.5 /CMM (0.1-1.30); MONOCYTES % (AUTO) 6.3 % (2.0-12.0); NEUTROPHILS # (AUTO) 20.9 /CMM (1.8-8.9); NEUTROPHILS % (AUTO) 87.1 % (43.0-81.0); PLATELET COUNT (AUTO) 787 /CMM (150-450); RED BLOOD CELL COUNT(AUTO) 2.52 MIL/uL (4.5-6.0)
[2020-12-19 04:53] LABS: CALCIUM, SERUM 8.2 mg/dL (8.5-10.1); CREATININE 4.4 mg/dL (0.6-1.3)
--- NOTE | 2020-12-19 04:55 | NUR ---
PT SPO2 MAINTAINING ON 88-89% EVEN AFTER SUCTIONING INFORMED RT AND RT INCREASE FIO2 TO 60% SPO2 GOES UP TO 91-93 % WILL CONT TO MONITOR THE PT
[2020-12-19] MEDS: NEPRO 1,000 ML BOTTLE GT PRN (05:12)
[2020-12-19] MEDS: GUAIFENESIN 300 MG/15 ML UDC GT SCH ×3 (05:12→17:00)
[2020-12-19 05:13] LABS: POTASSIUM 4.2 mmol/L (3.5-5.1)
--- NOTE | 2020-12-19 07:30 | NUR ---
RN NOTES RECEIVED PT SEDATED AND INTUBATED, TOLERATING SETTINGS AT 60% FIO2 WITH PEEP OF 5, OGT IN PLACE WITH NEPRO AT 30, ENAMORADO INPLACE, ELIE ML AND LAC ML INTACT, PROPOFOL RUNNING AT 75, LEVO AT 0.1, BED LOCKED AND KEPT IN LOWEST POSITION, CARES CONTINUE THIS SHIFT.
[2020-12-19 07:45] LABS: ABG BASE EXCESS -1.8 mmol/L; ABG OXYGEN SATURATION 96.1 % (92.0-98.5); ABG PCO2 40.8 mmHg (35.0-45.0); ABG PH 7.374 (7.350-7.450); ABG PO2 99.7 mmHg (75.0-100.0); AaDO2 283.2 mmHg; COHb 3.5 % (0.5-1.5); MetHb 1.9 % (0.0-1.5); O2Hb 90.9 % (94.0-97.0); PEEP,BG 5 cm H2O; SITE, ABG Right Radial; VT, ABG 450 mL
[2020-12-19] MEDS: PANTOPRAZOLE 40 MG/PACK PACK NG SCH (08:26)
[2020-12-19] MEDS: ASPIRIN 81 MG TAB.CHEW PO SCH (08:26)
[2020-12-19] MEDS: PROSOURCE / PROSTAT (PYXIS) 30 ML UDC GT SCH (08:26)
[2020-12-19] MEDS: QUETIAPINE FUMARATE 25 MG TABLET PO SCH ×2 (08:26→16:59)
[2020-12-19] MEDS: DEXAMETHASONE SOD PHOSPHATE 10 MG/ML VIAL IV SCH (08:26)
[2020-12-19] MEDS ORDERED: FENTANYL CITRATE IV 1,250 MCG in IV NS 0.9% 225 ML IV PRN (09:00)
[2020-12-19] MEDS: NOREPINEPHRINE 8 MG in IV NS 0.9% 242 ML IV PRN ×2 (09:33→18:00)
[2020-12-19] MEDS: FENTANYL CITRAT IV 2,500 MCG in IV NS 0.9% 200 ML IV PRN (10:03)
[2020-12-19] MEDS: MIDAZOLAM HCL 100 MG in IV NS 0.9% 80 ML IV PRN (10:04)
[2020-12-19] MEDS: HYDROMORPHONE 1 MG/1 ML DISP.SYRIN IV PRN (10:38)
--- NOTE | 2020-12-19 16:35 | NUR ---
RT Pt receive orally intubated on mechanical ventilation with noted settings. Pt FiO2 had to be increased and is now at 90% due to low SpO2 of 86%. No SOB or respiratory distress noted at this time. Addendum: 12/19/20 at 1636 by JOSE JOSEPH RT Amended: Links added.
--- NOTE | 2020-12-19 18:59 | NUR ---
RN NOTES PATIENT REMAINS SEDATED AND INTUBATED. TOLERATING SETTINGS OF 90% FIO2 AND PEEP OF 5, OGT IN PLACE WITH NEPRO AT 30ML/HR, ELIE ML AND LAC ML, LEVO AT 0.2, FENTANYL at 2mcg/kg, VERSED AT 2mg/hr, N/S TKO, LEFT FEMORAL HD CATH IN PLACE, ENAMORADO INTACT, APPEARS COMFORTABLE AT THIS TIME, BED LOCKED AND KEPT IN LOWEST POSITION, ENDORSED TO NIGHT RN FOR CONTINUITY OF CARE.
[2020-12-20] VITALS (83 sets, daily range): BP systolic 62–172; BP diastolic 35–96
[2020-12-20] MEDS: GUAIFENESIN 300 MG/15 ML UDC GT SCH ×5 (00:57→23:22)
[2020-12-20] MEDS: PIPERACILLIN /TAZOBACTAM 2.25 G in IV D5W 50 ML IV SCH ×2 (00:57→10:53)
[2020-12-20] MEDS: IV NS 0.9% 250 ML IV PRN ×2 (01:17→22:32)
[2020-12-20] MEDS ORDERED: NOREPINEPHRINE 8MG/250ML RTU 250 ML IV ONE (02:06)
[2020-12-20] MEDS: NOREPINEPHRINE 8 MG in IV NS 0.9% 242 ML IV PRN (02:09)
[2020-12-20] MEDS: FENTANYL CITRAT IV 2,500 MCG in IV NS 0.9% 200 ML IV PRN (03:44)
[2020-12-20 05:14] LABS: BASOPHILS # (AUTO) 0.1 /CMM (0.0-0.2); BASOPHILS % (AUTO) 0.3 % (0.0-2.0); EOSINOPHILS % (AUTO) 2.7 % (0.0-6.0); HEMATOCRIT 29 % (39-51); HEMOGLOBIN 9.2 g/dL (13.5-17.5); LYMPHOCYTES # (AUTO) 1.5 /CMM (0.8-4.8); MEAN CORPUSCULAR HGB CONC 32 g/dl (31.0-36.0); MEAN CORPUSCULAR VOLUME 97 fL (80-96); MONOCYTES # (AUTO) 1.5 /CMM (0.1-1.30); MONOCYTES % (AUTO) 5.2 % (2.0-12.0); NEUTROPHILS # (AUTO) 25.4 /CMM (1.8-8.9); NEUTROPHILS % (AUTO) 86.8 % (43.0-81.0); RED BLOOD CELL COUNT(AUTO) 2.95 MIL/uL (4.5-6.0); WHITE BLOOD COUNT (AUTO) 29.3 K/uL (4.3-11.0)
[2020-12-20 05:18] LABS: PLATELET COUNT (AUTO) 1041 /CMM (150-450)
[2020-12-20 05:23] LABS: CALCIUM, SERUM 8.7 mg/dL (8.5-10.1); CREATININE 5.1 mg/dL (0.6-1.3); POTASSIUM 5.2 mmol/L (3.5-5.1)
[2020-12-20 06:22] LABS: BAND % (MANUAL) 4 % (0.0-5.0); EOSINOPHILS % (MANUAL) 2 % (0-4); LYMPHOCYTES % (MANUAL) 6 % (16-48); METAMYELOCYTES % 3 % (0-0); MONOCYTES % (MANUAL) 6 % (0-11.0); MYELOCYTES % 2 % (0-0); NEUTROPHILS % (MANUAL) 77 (42-76)
--- NOTE | 2020-12-20 08:00 | NUR ---
RT PATIENT REC'D ORALLY INTUBATED ON [facility] VENT WITH ORDERED SETTINGS ZACKERY WELL. VENT ALARMS CHECKED + AUDIBLE. ETT SECURE AND IN PROPER POSITION. AIRWAY CHECKED + PATENT. AMBU BAG AT HOB. Addendum: 12/20/20 at 1039 by FREEDOM HE RT Amended: Links added.
[2020-12-20 08:52] LABS: ABG BASE EXCESS -5.4 mmol/L; ABG OXYGEN SATURATION 96.6 % (92.0-98.5); ABG PCO2 45.3 mmHg (35.0-45.0); ABG PH 7.284 (7.350-7.450); ABG PO2 106.1 mmHg (75.0-100.0); AaDO2 416.7 mmHg; COHb 2.8 % (0.5-1.5); MetHb 1.4 % (0.0-1.5); O2Hb 92.5 % (94.0-97.0); PEEP,BG 5 cm H2O; SITE, ABG Right Brachial; VT, ABG 450 mL
--- NOTE | 2020-12-20 08:56 | NUR ---
fio2 titrate down from 80% to 60% per dr. cuenca Addendum: 12/20/20 at 0856 by ISABELLE OLSON RT Amended: Links added.
[2020-12-20] MEDS: DEXAMETHASONE SOD PHOSPHATE 10 MG/ML VIAL IV SCH (10:50)
[2020-12-20] MEDS: PANTOPRAZOLE 40 MG/PACK PACK NG SCH (10:50)
[2020-12-20] MEDS: QUETIAPINE FUMARATE 25 MG TABLET PO SCH ×2 (10:50→17:11)
[2020-12-20] MEDS: ASPIRIN 81 MG TAB.CHEW PO SCH (10:50)
[2020-12-20] MEDS: PROSOURCE / PROSTAT (PYXIS) 30 ML UDC GT SCH (10:51)
[2020-12-20] MEDS ORDERED: VANCOMYCIN 500 MG in IV D5W 100 ML IV PRN (11:30)
[2020-12-20] MEDS ORDERED: VANCOMYCIN 1 GM in IV D5W 250 ML IV ONE (13:00)
[2020-12-20] MEDS: LORAZEPAM 1 MG TABLET PO PRN (14:37)
[2020-12-20] MEDS: HYDROMORPHONE 1 MG/1 ML DISP.SYRIN IV PRN (14:38)
--- NOTE | 2020-12-20 15:26 | NUR ---
SS CONSULT FOLLOW UP: Per FRANCESCA Edouard, patient is sedated and currently unable to complete an assessment. SW was advised to meet with the patient once he is alert.
[2020-12-20] MEDS: MEROPENEM 500 MG in IV NS 0.9% 50 ML IV SCH (15:47)
[2020-12-20] MEDS: NOREPINEPHRINE 32 MG in IV NS 0.9% 218 ML IV PRN (17:00)
--- NOTE | 2020-12-20 20:07 | NUR ---
PT INTUBATED 7.0 ETT AT 22CM LIP LINE. NO RESP DISTRESS, TOLERATING VENT SETTINGS. ETT SECURE, CUFF ROSS LIFT OPERATOR. SX'D SMALL AMT OF THICK WHITE SECRETIONS. VENT ALARMS SET AND AUDIBLE. VENT PLUGGED INTO RED OUTLET. CONTINUE [facility] VENT SUPPORT. Addendum: 12/20/20 at 2009 by MEGAN WILLIS RT Amended: Links added.
[2020-12-20] MEDS: MIDAZOLAM HCL 100 MG in IV NS 0.9% 80 ML IV PRN (23:30)
[2020-12-21] VITALS (90 sets, daily range): BP systolic 72–164; BP diastolic 24–97
[2020-12-21] MEDS: FENTANYL CITRAT IV 2,500 MCG in IV NS 0.9% 200 ML IV PRN ×2 (02:23→22:58)
[2020-12-21 04:40] LABS: BASOPHILS # (AUTO) 0.1 /CMM (0.0-0.2); BASOPHILS % (AUTO) 0.5 % (0.0-2.0); EOSINOPHILS % (AUTO) 0.5 % (0.0-6.0); HEMATOCRIT 25 % (39-51); LYMPHOCYTES # (AUTO) 0.8 /CMM (0.8-4.8); MEAN CORPUSCULAR HGB CONC 31 g/dl (31.0-36.0); MEAN CORPUSCULAR VOLUME 99 fL (80-96); MONOCYTES # (AUTO) 1.3 /CMM (0.1-1.30); MONOCYTES % (AUTO) 4.9 % (2.0-12.0); NEUTROPHILS # (AUTO) 23.1 /CMM (1.8-8.9); NEUTROPHILS % (AUTO) 91.1 % (43.0-81.0); RED BLOOD CELL COUNT(AUTO) 2.55 MIL/uL (4.5-6.0); WHITE BLOOD COUNT (AUTO) 25.4 K/uL (4.3-11.0)
[2020-12-21 04:41] LABS: PLATELET COUNT (AUTO) 956 /CMM (150-450)
[2020-12-21 04:51] LABS: CALCIUM, SERUM 8.8 mg/dL (8.5-10.1); CREATININE 5.7 mg/dL (0.6-1.3); MAGNESIUM 3.1 mg/dL (1.8-2.4)
[2020-12-21 05:00] LABS: POTASSIUM 4.9 mmol/L (3.5-5.1)
[2020-12-21 05:02] LABS: PHOSPHORUS 11.6 mg/dL (2.5-4.9)
[2020-12-21] MEDS: GUAIFENESIN 300 MG/15 ML UDC GT SCH ×3 (05:15→17:59)
[2020-12-21] MEDS: NEPRO 1,000 ML BOTTLE GT PRN (06:40)
[2020-12-21] MEDS: QUETIAPINE FUMARATE 25 MG TABLET PO SCH ×2 (09:41→17:45)
[2020-12-21] MEDS: PROSOURCE / PROSTAT (PYXIS) 30 ML UDC GT SCH (09:41)
[2020-12-21] MEDS: ASPIRIN 81 MG TAB.CHEW PO SCH (09:41)
[2020-12-21] MEDS: PANTOPRAZOLE 40 MG/PACK PACK NG SCH (09:41)
[2020-12-21] MEDS: DEXAMETHASONE SOD PHOSPHATE 10 MG/ML VIAL IV SCH (09:41)
[2020-12-21] MEDS ORDERED: ALTEPLASE CATHFLO 2 MG/VIAL XX ONE (13:00)
[2020-12-21] MEDS ORDERED: ALTEPLASE 100 MG/VIAL VIAL IV ONE (13:00)
[2020-12-21] MEDS: MEROPENEM 500 MG in IV NS 0.9% 50 ML IV SCH (13:53)
[2020-12-21] MEDS: NOREPINEPHRINE 32 MG in IV NS 0.9% 218 ML IV PRN (18:00)
--- NOTE | 2020-12-21 20:20 | NUR ---
RN NOTES PATIENT IS ORALLY INTUBATED WITH ETT 7 AND 24 CM AT LIP. WITH VENT SETTING AC 22 TV 450 FIO2 50% AND PEEP 5 TOLERATED WELL PATIENT IS SEDATED WITH FENTANYL AND VERSED BUT EASILY AROUSABLE AND RESPONSIVE TO TACTILE STIMULI. IV SITE ON ANUPAMA ML AND LAC ML ARE ALL INTACT AND PATENT WITH FENTANYL, LEVOPHED AND VERSED TITRATED ORDERED. OGT CLOGGED AND CHANGE IT WITH NGT ON RIGHT NARES VERIFIED WITH OTHER RN WITH GURGLING SOUND. WITH 60 CC GREENISH COLO RESIDUAL. KEPT HOB ELEVATED. CONTINUE NEPHRO @ 30 CC/HR. TURN AND REPOSITIONED FOR SKIN CARE AND COMFORTABLE. ENAMORADO CATH KEPT OFF FROM THE FLOOR.
[2020-12-21] MEDS: LORAZEPAM 1 MG TABLET PO PRN (21:40)
[2020-12-21] MEDS: HYDROMORPHONE 1 MG/1 ML DISP.SYRIN IV PRN (21:40)
[2020-12-22] VITALS (96 sets, daily range): BP systolic 60–166; BP diastolic 41–105
[2020-12-22] MEDS: GUAIFENESIN 300 MG/15 ML UDC GT SCH ×4 (00:06→17:31)
[2020-12-22] MEDS: IV NS 0.9% 250 ML IV PRN (00:49)
[2020-12-22 04:53] LABS: CALCIUM, SERUM 8.7 mg/dL (8.5-10.1); CREATININE 6.2 mg/dL (0.6-1.3); MAGNESIUM 3.2 mg/dL (1.8-2.4); POTASSIUM 5.1 mmol/L (3.5-5.1)
[2020-12-22 05:31] LABS: BASOPHILS # (AUTO) 0.4 /CMM (0.0-0.2); BASOPHILS % (AUTO) 1.3 % (0.0-2.0); EOSINOPHILS % (AUTO) 0.5 % (0.0-6.0); HEMATOCRIT 23 % (39-51); LYMPHOCYTES # (AUTO) 1.5 /CMM (0.8-4.8); LYMPHOCYTES % (AUTO) 5.3 % (20.0-44.0); MEAN CORPUSCULAR HGB CONC 31 g/dl (31.0-36.0); MEAN CORPUSCULAR VOLUME 102 fL (80-96); MONOCYTES # (AUTO) 1.7 /CMM (0.1-1.30); MONOCYTES % (AUTO) 5.9 % (2.0-12.0); NEUTROPHILS # (AUTO) 25.1 /CMM (1.8-8.9); RED BLOOD CELL COUNT(AUTO) 2.23 MIL/uL (4.5-6.0); WHITE BLOOD COUNT (AUTO) 28.8 K/uL (4.3-11.0)
[2020-12-22 05:33] LABS: PHOSPHORUS 12.3 mg/dL (2.5-4.9)
[2020-12-22 05:34] LABS: PLATELET COUNT (AUTO) 1018 /CMM (150-450)
[2020-12-22 05:52] LABS: BAND % (MANUAL) 2 % (0.0-5.0); LYMPHOCYTES % (MANUAL) 2 % (16-48); METAMYELOCYTES % 1 % (0-0); MONOCYTES % (MANUAL) 2 % (0-11.0); MYELOCYTES % 1 % (0-0); NEUTROPHILS % (MANUAL) 92 (42-76)
[2020-12-22] MEDS: MIDAZOLAM HCL 100 MG in IV NS 0.9% 80 ML IV PRN (06:17)
--- NOTE | 2020-12-22 07:32 | NUR ---
RN NOTES NO SIGNIFICANT CHANGES THROUGHOUT THE SHIFT. INTUBATED WITH VENT ON AC MODE FIO2 50%. AFEBRILE. VSS WITH PRESSORS. CONTINUE WITH SEDATION VERSED AND FENTANYL TITRATED ORDERED. INCONTINENT CARE PROVIDED.. WOUND CARE DONE. F/C DRAINED VIA GRAVITY. KEPT PT CLEAN AND DRY. ENDORSED CONTINUITY OF CARE TO AM NURSE. REPORTED BY LAB PLATELETS 1018 AND PHOS 12.3 PATIENT IS DIALYSIS PATIENT AND MD IS AWARE REGARDING HIGH PLATELETS. WILL CONTINUE POC.
[2020-12-22] MEDS: QUETIAPINE FUMARATE 25 MG TABLET PO SCH ×2 (08:37→17:31)
[2020-12-22] MEDS: DEXAMETHASONE SOD PHOSPHATE 10 MG/ML VIAL IV SCH (08:37)
[2020-12-22] MEDS: ASPIRIN 81 MG TAB.CHEW PO SCH (08:37)
[2020-12-22] MEDS: PANTOPRAZOLE 40 MG/PACK PACK NG SCH (08:37)
[2020-12-22] MEDS: PROSOURCE / PROSTAT (PYXIS) 30 ML UDC GT SCH (09:21)
[2020-12-22] MEDS: NOREPINEPHRINE 32 MG in IV NS 0.9% 218 ML IV PRN (10:32)
[2020-12-22] MEDS: LORAZEPAM 1 MG TABLET PO PRN ×2 (12:31→22:27)
[2020-12-22] MEDS: HYDROMORPHONE 1 MG/1 ML DISP.SYRIN IV PRN ×2 (12:32→22:44)
[2020-12-22] MEDS: PRECEDEX 400 MCG/100 ML BOTTLE 100 ML IV PRN ×3 (13:58→23:50)
[2020-12-22] MEDS: MEROPENEM 500 MG in IV NS 0.9% 50 ML IV SCH (14:13)
--- NOTE | 2020-12-22 17:48 | NUR ---
PT PLACED ON A/C DUE TO LOW SPO2. RN SUNDAY AWARE. Addendum: 12/22/20 at 1749 by SOLEDAD PORRAS RT Amended: Links added.
--- NOTE | 2020-12-22 18:00 | NUR ---
pt was titrated down on sedation at [address] Saji Kohli, and was placed on SIMV mode for 10 hours. Pt tolerated SIMV well, off fentanyl drip and versed drip. pt remain on precedex drip at 0.8. two large BM today, stool is brown and loose, completed HD today with 1.6 liter removed. Changed to AC mode by RT at 1845. Versed and fentanyl wasted as per protocol. skin care, repositioning every 2 hrs were done through the shift. Left leg wound dressing changed. 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 pt endorsed to fashion director for continuity of care. pt received 1 unit of blood today. No signs of any transfusion reaction was noted. Left A/C midline was accendentally removed during HD. site is clean, with no complications/active bleeding.
--- NOTE | 2020-12-22 19:30 | NUR ---
RN NOTES RECEIVED PT ORALLY INTUBATED WITH ETT 7 AND 24 CM AT LIP LINE, WITH VENT SETTING AC 22 TV 450 FIO2 40% AND PEEP 5. NO ACUTE RESP. DISTRESS. PATIENT IS SEDATED WITH PRECEDEX WILL TITRATED PROTOCOL EASILY AROUSABLE AND STARTED TO GET RESTLESS, RESPONSIVE TO TACTILE STIMULI. IV SITE ON ANUPAMA ML RUNNING WITH LEVOPHED @ 0.1 MCK/KG/HR NGT ON RIGHT NARES INTACT WITH 10 CC RESIDUA GREENISH COLO RESIDUAL. KEPT HOB ELEVATED. CONTINUE NEPHRO @ 30 CC/HR. TURN AND REPOSITIONED FOR SKIN CARE AND COMFORTABLE. ENAMORADO CATH KEPT OFF FROM THE FLOOR.
[2020-12-22] MEDS ORDERED: LORAZEPAM INJ 2 MG/ML VIAL IV PRN (23:00)
[2020-12-23] VITALS (78 sets, daily range): BP systolic 88–151; BP diastolic 38–103
[2020-12-23] MEDS: GUAIFENESIN 300 MG/15 ML UDC GT SCH ×4 (00:37→17:19)
[2020-12-23] MEDS: HYDROMORPHONE 1 MG/1 ML DISP.SYRIN IV PRN ×5 (03:55→22:59)
[2020-12-23 04:19] LABS: BASOPHILS # (AUTO) 0.1 /CMM (0.0-0.2); BASOPHILS % (AUTO) 0.4 % (0.0-2.0); EOSINOPHILS % (AUTO) 1.4 % (0.0-6.0); HEMATOCRIT 22 % (39-51); HEMOGLOBIN 7.2 g/dL (13.5-17.5); LYMPHOCYTES # (AUTO) 1.3 /CMM (0.8-4.8); LYMPHOCYTES % (AUTO) 4.7 % (20.0-44.0); MEAN CORPUSCULAR HGB CONC 33 g/dl (31.0-36.0); MEAN CORPUSCULAR VOLUME 91 fL (80-96); MONOCYTES # (AUTO) 1.4 /CMM (0.1-1.30); MONOCYTES % (AUTO) 4.8 % (2.0-12.0); NEUTROPHILS # (AUTO) 25.3 /CMM (1.8-8.9); NEUTROPHILS % (AUTO) 88.7 % (43.0-81.0); PLATELET COUNT (AUTO) 837 /CMM (150-450); RED BLOOD CELL COUNT(AUTO) 2.44 MIL/uL (4.5-6.0); WHITE BLOOD COUNT (AUTO) 28.5 K/uL (4.3-11.0)
[2020-12-23] MEDS: PRECEDEX 400 MCG/100 ML BOTTLE 100 ML IV PRN ×5 (04:26→23:29)
[2020-12-23 04:36] LABS: CALCIUM, SERUM 8.3 mg/dL (8.5-10.1); CREATININE 4.6 mg/dL (0.6-1.3); POTASSIUM 3.6 mmol/L (3.5-5.1)
--- NOTE | 2020-12-23 06:53 | NUR ---
RN NOTES PATIENT IS STABLE THROUGHOUT THE SHIFT. AFEBRILE ETT AND VENT SETTING TOLERATED WELL SATURATION KEPT >92%,, POR PERFUSION NOTED AT TIMES . AFEBRILE. VSS. PRESSOR OFF AND TOLERATED WELL. CONT. ON PRECEDEX TITRATED PROTOCOL ORDER. PAIN MEDICINE DILAUDID GIVEN PRN ORDER. BEDBATH DONE AND TOLERATED WELL. KEPT HOB ELEVATED NGT INTACT ENAMORADO DRAINED WITH MINIMUM AMT,. OF URINE. WILL CONTINUE POC.
--- NOTE | 2020-12-23 08:00 | NUR ---
RN NOTES RECEIVED PATIENT IN THE BED, ON EET VENT SETTING, NO ACUTE RESPIRATORY DISTRESS, INTUBATED WITH VENT ON AC MODE22, FIO2 60%. AFEBRILE. VSS SHOWS ON BEDSIDE MONITORE SR, ON SEDATION OF PRECEDEX 1 MCG/KG/HR. INCONTINENT CARE PROVIDED. F/C DRAINED VIA GRAVITY. PATIENT HAS GENERALIZED EDEMA, HGL 7, GET ORDER OF ONE UNIT OF BLOOD TRANSFUSION. NGT INTACT, NO RESIDUAL, ALSO CHECKED PLACEMENT, RUNNING NEPHRO 30CC/HR. KEEP HOB ELEVATED. WILL CONTINUE MONITORING.
[2020-12-23] MEDS: QUETIAPINE FUMARATE 25 MG TABLET PO SCH ×2 (08:36→16:35)
[2020-12-23] MEDS: PANTOPRAZOLE 40 MG/PACK PACK NG SCH (08:36)
[2020-12-23] MEDS: ASPIRIN 81 MG TAB.CHEW PO SCH (08:36)
[2020-12-23] MEDS: DEXAMETHASONE SOD PHOSPHATE 10 MG/ML VIAL IV SCH (08:36)
[2020-12-23] MEDS: PROSOURCE / PROSTAT (PYXIS) 30 ML UDC GT SCH (08:37)
--- NOTE | 2020-12-23 09:20 | NUR ---
rn notes patient placed om SIMV 4, 450, ps 15, +5, 60%, at this time, and will check abg on one hr.
--- NOTE | 2020-12-23 09:25 | NUR ---
RN NOTES GET TO ORDER FROM FIELD SALES ASSOCIATE Dr BURGER DECREASE SEDATION, PRECEDEX 0.05, NO OTHER SEDATION, PATIENT WILL BE SIMV FOR WEANING , MONITORING HEART, AND LUNGS, PATIENT CALM AND COOPERATIVE AT THIS BERRY.
--- NOTE | 2020-12-23 10:06 | NUR ---
rn notes patient getting ABG , patient awake, follow command, aggressively moving, needs attended and anticipated.
--- NOTE | 2020-12-23 10:20 | NUR ---
rn notes post ABG results patient placed back to full sedation and ventilation support, ventilation settings Ac 22, DV-450, FIO@-60%, PEEP +5 per Md Peleg. will monitor.
[2020-12-23 10:24] LABS: ABG BASE EXCESS -0.8 mmol/L; ABG OXYGEN SATURATION 93.7 % (92.0-98.5); ABG PCO2 48.9 mmHg (35.0-45.0); ABG PO2 85.1 mmHg (75.0-100.0); AaDO2 288.9 mmHg; COHb 2.6 % (0.5-1.5); MetHb 0.9 % (0.0-1.5); O2Hb 90.4 % (94.0-97.0); PEEP,BG 5 cm H2O; SITE, ABG Right Radial
--- NOTE | 2020-12-23 10:38 | NUR ---
RN NOTES ADMINISTERED DILAUDID 1 MG/ML IV PUSH FOR PAIN BP - 138/90, P-94. PATIENT AGGRESSIVELY MOVING, AND BITING ETT . INCREASED SEDATION PRECEDEX 1 MCG/KG/HR.
[2020-12-23] MEDS: LORAZEPAM 1 MG TABLET PO PRN ×2 (12:41→13:15)
--- NOTE | 2020-12-23 13:15 | NUR ---
rn notes administered Ativan 1 mg po prn for anxiety, agitation, bp 107/81. p-95.
--- NOTE | 2020-12-23 14:01 | NUR ---
rn notes Started one unit of blood transfusion at this [id number]/hr. v/s taken t-97,9, p-94, bp- 115/94, r-19,-, patient ETT sedated. medication were administered for anxiety, agitation effective, patient has no acute respiratory distress. will monitoring.
--- NOTE | 2020-12-23 14:20 | NUR ---
RN NOTES PATIENT SEDATED, NO ACUTE RESPIRATORY DISTRESS, NO NOTED ANY S/S OF REACTION, BP 101/67, P-73, T-98. INCREASED TRANSFUSION AT 75 ML/HR, WILL MONITORING.
[2020-12-23] MEDS: MEROPENEM 500 MG in IV NS 0.9% 50 ML IV SCH (14:45)
--- NOTE | 2020-12-23 14:50 | NUR ---
rn notes collected UA specimen at this time from catheter port, called lab picker tender helper. increased blood infusion 125 ml/hr on left upper midline, v/s stable no acute respiratory distress.
--- NOTE | 2020-12-23 15:25 | NUR ---
rn notes started HD at this time. patient has loose bowel movement x2, cleaned and keep patient dry.
[2020-12-23] MEDS: NEPRO 1,000 ML BOTTLE GT PRN (16:35)
--- NOTE | 2020-12-23 16:46 | NUR ---
rn notes administered dilaudid 1 mg/ml iv push for agitation, and generalized pain, bp 139/103, p-89.
--- NOTE | 2020-12-23 17:04 | NUR ---
rn notes finished HD at this time output was 200 ml. patient fully awake, moving around, bp 128/83, p-100, will monitoring.
[2020-12-23] MEDS ORDERED: VANCOMYCIN 500 MG in IV D5W 100ml IV ONE (18:00)
--- NOTE | 2020-12-23 18:35 | NUR ---
rn notes patient has no acute respiratory distress, sedated Precedex 1.5mcg/kg/hr, max dose, due medication administered suction, oral care, needs attended and anticipated, ngt infusing nephro 30 ml/hr intact, v/s stable, assist turn and reposition q 2 hr. endorsed oncoming nurse follow plan of care.
[2020-12-23] MEDS: LORAZEPAM 1 MG TABLET PO SCH (20:27)
--- NOTE | 2020-12-23 21:36 | NUR ---
Pt, on Precedex chema. Addendum: 12/23/20 at 2137 by MUNA AVILEZ RN Amended: Links added.
[2020-12-23] MEDS: HYDROCODONE/APAP 5/325MG TABLET PO PRN (21:53)
[2020-12-24] VITALS (63 sets, daily range): BP systolic 71–166; BP diastolic 38–93
--- NOTE | 2020-12-24 00:37 | NUR ---
pT. ON PRECEDEX DRIP FOR SEDATION Addendum: 12/24/20 at 0039 by MUNA AVILEZ RN Amended: Links added.
[2020-12-24] MEDS: GUAIFENESIN 300 MG/15 ML UDC GT SCH ×5 (00:44→23:45)
[2020-12-24] MEDS: HYDROCODONE/APAP 5/325MG TABLET PO PRN (01:31)
[2020-12-24] MEDS: HYDROMORPHONE 1 MG/1 ML DISP.SYRIN IV PRN ×3 (03:13→21:51)
[2020-12-24 04:30] LABS: BASOPHILS # (AUTO) 0.1 /CMM (0.0-0.2); BASOPHILS % (AUTO) 0.2 % (0.0-2.0); EOSINOPHILS % (AUTO) 1.2 % (0.0-6.0); HEMATOCRIT 28 % (39-51); HEMOGLOBIN 8.9 g/dL (13.5-17.5); LYMPHOCYTES # (AUTO) 1.1 /CMM (0.8-4.8); LYMPHOCYTES % (AUTO) 4.2 % (20.0-44.0); MEAN CORPUSCULAR HGB CONC 32 g/dl (31.0-36.0); MEAN CORPUSCULAR VOLUME 92 fL (80-96); NEUTROPHILS # (AUTO) 23.7 /CMM (1.8-8.9); NEUTROPHILS % (AUTO) 90.4 % (43.0-81.0); PLATELET COUNT (AUTO) 730 /CMM (150-450); RED BLOOD CELL COUNT(AUTO) 2.99 MIL/uL (4.5-6.0); WHITE BLOOD COUNT (AUTO) 26.2 K/uL (4.3-11.0)
[2020-12-24 04:34] LABS: CALCIUM, SERUM 8.2 mg/dL (8.5-10.1); CREATININE 4.3 mg/dL (0.6-1.3); POTASSIUM 3.5 mmol/L (3.5-5.1)
[2020-12-24] MEDS: LORAZEPAM 1 MG TABLET PO SCH ×2 (05:36→12:30)
[2020-12-24] MEDS: PANTOPRAZOLE 40 MG/PACK PACK NG SCH (08:55)
[2020-12-24] MEDS: ASPIRIN 81 MG TAB.CHEW PO SCH (08:55)
[2020-12-24] MEDS: QUETIAPINE FUMARATE 25 MG TABLET PO SCH ×2 (08:55→17:03)
[2020-12-24] MEDS: ONDANSETRON HCL/PF 4 MG/2 ML VIAL IVP PRN (09:36)
[2020-12-24] MEDS: PROSOURCE / PROSTAT (PYXIS) 30 ML UDC GT SCH (09:39)
[2020-12-24] MEDS ORDERED: FENTANYL CITRAT IV 2,500 MCG in IV NS 0.9% 200 ML IV PRN (12:00)
[2020-12-24] MEDS: MEROPENEM 500 MG in IV NS 0.9% 50 ML IV SCH (13:08)
[2020-12-24] MEDS: PRECEDEX 400 MCG/100 ML BOTTLE 100 ML IV PRN (14:40)
--- NOTE | 2020-12-24 16:13 | NUR ---
pt ETT noted to be clog, unable to to pass through inline suction cath thru ETT tube, with increase air leak. RT made aware, attempted suctioning pt but was unable to suction. DR. Dawson was made aware. MD recommend extubation, and stop sedation and start pt on HFNC, if pt fails, he will be reintubate. ABG order prior to extubation as pt current oxygen saturation is undetermined due to poor perfusion, and acrocyanosis to all extremities
[2020-12-24] MEDS ORDERED: DC PROPOFOL WHEN EXTUBATED XX PRN (16:35)
--- NOTE | 2020-12-24 16:45 | NUR ---
pt extubated at 1740 now on HFNC 100%, 40 L, pt is drowsy and follow simple command, Oxygen saturation 100%.
[2020-12-24 17:58] LABS: ABG BASE EXCESS -1.4 mmol/L; ABG OXYGEN SATURATION 94.4 % (92.0-98.5); ABG PCO2 41.9 mmHg (35.0-45.0); ABG PH 7.372 (7.350-7.450); ABG PO2 83.6 mmHg (75.0-100.0); AaDO2 587.5 mmHg; COHb 1.6 % (0.5-1.5); MetHb 0.4 % (0.0-1.5); O2Hb 92.5 % (94.0-97.0); SITE, ABG Right Radial; VENT MODE, BG HHF 40L 100%
--- NOTE | 2020-12-24 19:10 | NUR ---
RN NOTE RECEIVED PT DROWSY IN BED IN SEMI WILLIS'S POSITION. PT IS ORIENTED X [address] ABLE TO FOLLOW SIMPLE COMMANDS BUT WEAK. PT ON HI FLOW NASAL CANNULA 40L 100% FI02. VITAL SIGNS STABLE VIA BEDSIDE MONITOR. RIGHT NARE NGT PATENT AND IN PLACE VERIFIED WITH AUSCULTATION AND ASPIRATION. TUBE FEEDING RUNNING ORDERED, MINIMAL RESIDUAL NOTED, WITH LEFT UPPER MIDLINE INTACT AND FLUSHING WELL. WITH LEFT FEMORAL HD CATHETER INTACT. ALARMS ON AND AUDIBLEM AMBU BAG AT BEDSIDE,
[2020-12-24] MEDS: NEPRO 1,000 ML BOTTLE GT PRN (23:45)
[2020-12-25] VITALS (44 sets, daily range): BP systolic 94–185; BP diastolic 34–125
[2020-12-25] MEDS: HYDROCODONE/APAP 5/325MG TABLET PO PRN ×3 (00:01→15:08)
[2020-12-25] MEDS: HYDROMORPHONE 1 MG/1 ML DISP.SYRIN IV PRN ×5 (01:58→22:22)
--- NOTE | 2020-12-25 02:44 | NUR ---
RN NOTE PT AGITATED DESPITE GIVING PAIN MEDICATION. NOTIFIED YOLY CHANDLER WITH ORDER TO GIVE ATIVAN 1MG IV ONCE. ORDER CARRIED OUT. Addendum: 12/25/20 at 0251 by JODY BERKOWITZ RN TUBE FEEDING PAUSED AT THIS TIME
[2020-12-25] MEDS ORDERED: LORAZEPAM INJ 2 MG/ML VIAL IV ONE (03:00)
[2020-12-25] MEDS ORDERED: LORAZEPAM INJ 2 MG/ML VIAL IV STA (03:49)
--- NOTE | 2020-12-25 05:23 | NUR ---
RN NOTE PT REMAINS SLIGHTLY AGITATED. TUBE FEEDING ON HOLD DUE TO PT AGITATION AND RISK OF ASPIRATION. TRIAL MANAGEMENT ASSOCIATE YOLY AWARE OF PT'S LATEST ABG RESULT AND CURRENT CONDITION
[2020-12-25] MEDS: GUAIFENESIN 300 MG/15 ML UDC GT SCH ×3 (05:27→17:19)
[2020-12-25 06:44] LABS: CALCIUM, SERUM 8.1 mg/dL (8.5-10.1); CREATININE 4.9 mg/dL (0.6-1.3); POTASSIUM 3.5 mmol/L (3.5-5.1)
--- NOTE | 2020-12-25 06:47 | NUR ---
RN NOTE AT 0632, PT AGITATED AND APPEARED TO BE IN SEVERE PAIN. ADMINISTERED DILAUDID 1MG ORDERED. PT IS NOW LESS AGITATED. ORIENTED X 1 TO NAME ONLY. ABLE TO FOLLOW SIMPLE COMMANDS. RESPIRATIONS EVEN AND UNLABORED WHILE ON HIFLOW 40L 100% FIO2. VITAL SIGNS STABLE VIA BEDSIDE MONITOR. HR SINUS TACHY 104. ENAMORADO CATHETER IN PLACE DRAINING URINE. RIGHT NGT PATENT AND IN PLACE. WILL RESUME TUBE FEEDING ORDERED. BILATERAL SOFT WRIST RESTRAINTS IN PLACE ORDERED FOR SAFETY. VISUAL AND SKIN CHECKS DONE Q15M. ALL NEEDS MET AND ATTENDED TO
--- NOTE | 2020-12-25 07:30 | NUR ---
PIE ICER MACHINE OPENING NOTE RECEIVED REPORT FROM PM NURSE.PATIENT IN BED.AWAKE.RESPONDING TO TOUCH AND CALL OPEN EYES.NO SOB NO DISTRESS NOTED.ON HIGH FLOW O2 WITH SATURATION OF 96%.IV LINES ARE PATENT.ENAMORADO CATH DRAINING CLEAR YELLOW URINE.BED IS LOW AND IN LOCKED POSITION.CALL LIGHT IN REACH.BED ALARM ON.RESTRAINTS ON.WILL CONTINUE TO MONITOR.
[2020-12-25 07:51] LABS: BASOPHILS # (AUTO) 0.2 /CMM (0.0-0.2); BASOPHILS % (AUTO) 0.8 % (0.0-2.0); EOSINOPHILS % (AUTO) 0.8 % (0.0-6.0); HEMATOCRIT 21 % (39-51); LYMPHOCYTES # (AUTO) 0.5 /CMM (0.8-4.8); MEAN CORPUSCULAR HGB CONC 33 g/dl (31.0-36.0); MEAN CORPUSCULAR VOLUME 92 fL (80-96); MONOCYTES # (AUTO) 1.3 /CMM (0.1-1.30); NEUTROPHILS # (AUTO) 23.1 /CMM (1.8-8.9); NEUTROPHILS % (AUTO) 91.4 % (43.0-81.0); PLATELET COUNT (AUTO) 549 /CMM (150-450); RED BLOOD CELL COUNT(AUTO) 2.29 MIL/uL (4.5-6.0); WHITE BLOOD COUNT (AUTO) 25.3 K/uL (4.3-11.0)
[2020-12-25 07:57] LABS: HEMOGLOBIN 6.9 g/dL (13.5-17.5)
--- NOTE | 2020-12-25 08:15 | NUR ---
RIVER RAFTING GUIDE NOTE SEEN BY MD MIRANDA UPDATED ABOUT PATIENT CONDITION ,GOT NEW ORDER FOR ATIVAN 0.5MG Q6H PRN FOR AGITATION AND RESTLESSNESS.MADE AWARE ABOUT LOW H/H TO TRANSFUSE 1 PRBC WITH HD .NO ACTIVE BLEEDING NOTED.WILL CONTINUE TO MONITOR.
[2020-12-25] MEDS: QUETIAPINE FUMARATE 25 MG TABLET PO SCH ×2 (08:45→17:19)
[2020-12-25] MEDS: ASPIRIN 81 MG TAB.CHEW PO SCH (08:45)
[2020-12-25] MEDS: PANTOPRAZOLE 40 MG/PACK PACK NG SCH (08:46)
[2020-12-25] MEDS: PROSOURCE / PROSTAT (PYXIS) 30 ML UDC GT SCH (08:47)
--- NOTE | 2020-12-25 09:50 | NUR ---
ANALYTICAL CHEMISTRY TEACHER NOTE SEEN BY .OK TO TITRATE DOWN FIO2 TO KEEP SPO2 >90%.RT MADE AWARE.NO MORE ABG NEEDED NOW.WILL CONTINUE TO MONITOR.
[2020-12-25] MEDS: LORAZEPAM INJ 2 MG/ML VIAL IV PRN (11:35)
[2020-12-25 12:50] LABS: LYMPHOCYTES % (MANUAL) 1 % (16-48); MONOCYTES % (MANUAL) 6 % (0-11.0); MYELOCYTES % 4 % (0-0); NEUTROPHILS % (MANUAL) 89 (42-76)
--- NOTE | 2020-12-25 13:23 | NUR ---
PROTECTIVE SIGNAL SUPERINTENDENT NOTE RECEIVED CALL FROM BLOOD BANK.REQUESTED TO CANCEL ONE BLOOD TRANSFUSION ORDER BECAUSE OF TWO ORDERS.TO KEEP ORDER TO CANCEL ORDER FROM DR SAUNDERS BECAUSE OF DUPLICATE ORDERS.CARRIED OUT .
--- NOTE | 2020-12-25 14:45 | NUR ---
ALCOHOLIC COUNSELOR NOTE STARTED BLOOD TRANSFUSION 1 PRBC WITH DIALYSIS NURSE.VITAL SIGNS STABLE .PATIENT IS AGITATED .RESTRAINTS ON.WILL CONTINUE TO MONITOR.
--- NOTE | 2020-12-25 16:05 | NUR ---
BACKSHOE PERSON NOTE BLOOD TRANSFUSION DONE WITH DIALYSIS.NO REACTIONS NOTED.PATIENT STILL AGITATED.WILL CONTINUE TO MONITOR.
[2020-12-25] MEDS: MEROPENEM 500 MG in IV NS 0.9% 50 ML IV SCH (17:05)
--- NOTE | 2020-12-25 18:45 | NUR ---
SCANNING MANAGER CLOSING NOTE PATIENT IS S/P BLOOD TRANSFUSION.STABLE VITAL SIGNS.IV LINES ARE PATENT.NO SOB NO DISTRESS NOTED.ON HIGH FLOW O2.WILL ENDORSE TO PM NURSE FOR ANNETTE.
--- NOTE | 2020-12-25 19:25 | NUR ---
RN NOTE RECEIVED PT DROWSY IN BED IN SEMI WILLIS'S POSITION. PT ABLE TO OPEN EYES BUT UNABLE TO FOLLOW COMMANDS. MAKES INCOMPREHENSIBLE SOUNDS. PT ON HI FLOW NASAL CANNULA 40L 100% FI02 BUT NOTED O2 SATURATION TO BE IN THE MID 80S. RT AT BEDSIDE PLACED PT ON 15L NON REBREATHER WITH SATURATION INCREASING TO HIGH 90S. ALL OTHER VITAL SIGNS STABLE VIA BEDSIDE MONITOR. RIGHT NARE NGT PATENT AND IN PLACE VERIFIED WITH AUSCULTATION AND ASPIRATION OF GASTRIC CONTENTS. TUBE FEEDING RUNNING ORDERED (NEPRO @ 30CC/HOUR), MINIMAL RESIDUAL NOTED, WITH LEFT UPPER MIDLINE INTACT AND FLUSHING WELL. WITH LEFT FEMORAL HD CATHETER INTACT. PT IS S/P 1 UNIT OF PRBC TODAY DURING HEMO DIALYSIS, NO ADVERSE REACTIONS NOTED AT THIS TIME, ALARMS ON AND AUDIBLE, AMBU BAG AT BEDSIDE, CALL LIGHT WITHIN REACH, SAFETY MEASURES IN PLACE PER PROTOCOL, BED ALARM ON, BED LOCKED AND IN LOW POSITION, SIDE RAILS UP X 3,
--- NOTE | 2020-12-25 19:28 | NUR ---
RT PATIENT FOUND DESATURATING TO 81% ON HFNC MAX SETTING , PLACED 15 L OF NON REBREATHER SPO2 WENT UP TO 97%. CHARGE NURSE AWARE. WILL CONTINUE TO MONITOR THROUGHOUT THE SHIFT. Addendum: 12/25/20 at 1933 by JOSEE BANUELOS RT Amended: Links added.
[2020-12-25] MEDS: NEPRO 1,000 ML BOTTLE GT PRN (22:24)
[2020-12-26] VITALS (57 sets, daily range): BP systolic 68–158; BP diastolic 48–98
[2020-12-26] MEDS: GUAIFENESIN 300 MG/15 ML UDC GT SCH ×4 (00:11→17:19)
[2020-12-26] MEDS: LORAZEPAM INJ 2 MG/ML VIAL IV PRN (01:46)
--- NOTE | 2020-12-26 01:52 | NUR ---
RN NOTE COMPLETE BED BATH GIVEN. PT BECAME AGITATED, AGGRESSIVE AND IS MOVING A LOT IN BED. PAUSED TUBE FEEDING DUE TO RISK OF ASPIRATION. ADMINISTERED PRN DOSE OF ATIVAN.
[2020-12-26] MEDS: HYDROMORPHONE 1 MG/1 ML DISP.SYRIN IV PRN ×2 (03:52→08:15)
[2020-12-26] MEDS ORDERED: HALOPERIDOL LACTATE INJ 5 MG/ML VIAL IV ONE (04:00)
[2020-12-26 04:42] LABS: BASOPHILS # (AUTO) 0.2 /CMM (0.0-0.2); BASOPHILS % (AUTO) 0.8 % (0.0-2.0); EOSINOPHILS % (AUTO) 1.5 % (0.0-6.0); HEMATOCRIT 25 % (39-51); LYMPHOCYTES # (AUTO) 0.5 /CMM (0.8-4.8); LYMPHOCYTES % (AUTO) 1.9 % (20.0-44.0); MEAN CORPUSCULAR HGB CONC 33 g/dl (31.0-36.0); MEAN CORPUSCULAR VOLUME 93 fL (80-96); MONOCYTES # (AUTO) 1.1 /CMM (0.1-1.30); MONOCYTES % (AUTO) 4.7 % (2.0-12.0); NEUTROPHILS # (AUTO) 21.8 /CMM (1.8-8.9); NEUTROPHILS % (AUTO) 91.1 % (43.0-81.0); PLATELET COUNT (AUTO) 502 /CMM (150-450); RED BLOOD CELL COUNT(AUTO) 2.64 MIL/uL (4.5-6.0)
[2020-12-26] MEDS: HYDROCODONE/APAP 5/325MG TABLET PO PRN (04:49)
[2020-12-26 04:57] LABS: ALBUMIN 1.8 g/dL (3.4-5.0); BILIRUBIN,TOTAL 1.2 mg/dL (0.2-1.0); CALCIUM, SERUM 8.5 mg/dL (8.5-10.1); POTASSIUM 3.7 mmol/L (3.5-5.1); TOTAL PROTEIN, SERUM 6.4 g/dL (6.4-8.2)
--- NOTE | 2020-12-26 07:00 | NUR ---
RN NOTE RECEIVED ON BED RESTLESS , MOVING AROUND IN BED, PT ABLE TO OPEN EYES BUT UNABLE TO FOLLOW COMMANDS. PT ON HI FLOW NASAL CANNULA 40L 100% FI02 . O2 SAT IN LOW 90'S , ON TELE SR HR IN 120'S, RIGHT NARE NGT PATENT AND IN PLACE VERIFIED WITH AUSCULTATION AND ASPIRATION OF GASTRIC CONTENTS. TUBE FEEDING RUNNING ORDERED (NEPRO @ 30CC/HOUR), MINIMAL RESIDUAL NOTED, WITH LEFT UPPER MIDLINE INTACT AND FLUSHING WELL. WITH LEFT FEMORAL HD CATHETER INTACT, ALARMS ON AND AUDIBLE, AMBU BAG AT BEDSIDE, CALL LIGHT WITHIN REACH, SAFETY MEASURES IN PLACE PER PROTOCOL, BED ALARM ON, BED LOCKED AND IN LOW POSITION, SIDE RAILS UP X 3,CONTINUE TO MONITOR .
[2020-12-26] MEDS ORDERED: HYDROMORPHONE 1 MG/1 ML DISP.SYRIN IV PRN (08:00)
[2020-12-26] MEDS: ASPIRIN 81 MG TAB.CHEW PO SCH (08:18)
[2020-12-26] MEDS: QUETIAPINE FUMARATE 25 MG TABLET PO SCH ×2 (08:18→17:19)
[2020-12-26] MEDS: PANTOPRAZOLE 40 MG/PACK PACK NG SCH (08:19)
[2020-12-26] MEDS: PROSOURCE / PROSTAT (PYXIS) 30 ML UDC GT SCH (08:19)
[2020-12-26 09:09] LABS: ABG OXYGEN SATURATION 64.6 % (92.0-98.5); ABG PCO2 48.8 mmHg (35.0-45.0); ABG PH 7.267 (7.350-7.450); AaDO2 623.2 mmHg; COHb 1.4 % (0.5-1.5); MetHb 0.2 % (0.0-1.5); O2Hb 63.6 % (94.0-97.0); SITE, ABG Right Radial; VENT MODE, BG HFNC 100% + NRB MASK
--- NOTE | 2020-12-26 09:58 | NUR ---
RN NOTES ABG DONE, DR TAO CHUN, PT INTUBATED PER MD ORDER , CONTINUE TO MONITOR .
[2020-12-26] MEDS ORDERED: PROPOFOL 100 ML IV PRN (10:00)
[2020-12-26] MEDS: PROPOFOL 100 ML IV PRN ×3 (10:28→21:50)
[2020-12-26 12:04] LABS: ABG BASE EXCESS -2.6 mmol/L; ABG OXYGEN SATURATION 69.9 % (92.0-98.5); ABG PCO2 57.6 mmHg (35.0-45.0); ABG PH 7.253 (7.350-7.450); AaDO2 611.4 mmHg; COHb 1.8 % (0.5-1.5); MetHb 0.4 % (0.0-1.5); O2Hb 68.4 % (94.0-97.0); SITE, ABG Right Radial
--- NOTE | 2020-12-26 12:30 | NUR ---
RN NOTES ABG DONE , DR TAO CHUN, NEW ORDER RECEIVED .
[2020-12-26] MEDS ORDERED: SULFAMETHOXAZOLE/TRIMETHOPRIM 10 ML in IV D5W 250 ML IV SCH (13:00)
[2020-12-26] MEDS ORDERED: ETOMIDATE 2 MG/ML VIAL IV ONE (13:06)
[2020-12-26] MEDS ORDERED: SUCCINYLCHOLINE CHLORIDE 20 MG/ML VIAL IV ONE (13:06)
[2020-12-26] MEDS: MEROPENEM 500 MG in IV NS 0.9% 50 ML IV SCH (13:11)
[2020-12-26] MEDS ORDERED: VANCOMYCIN POST DIALYSIS 500MG IV PRN (13:30)
--- NOTE | 2020-12-26 13:30 | NUR ---
RN NOTES HR COY TO HIGH 30'S , LOW BP NOTED , UNABLE TO GET ACCURATE O2 SAT ON PT , AWARE, ABG ORDERED, DR MIRANDA AND DR TAO CHUN, NEW ORDER RECEIVED . CONTINUE TO MONITOR
[2020-12-26] MEDS: NOREPINEPHRINE 8 MG in IV NS 0.9% 242 ML IV PRN ×3 (13:46→22:50)
--- NOTE | 2020-12-26 13:46 | NUR ---
RN NOTES LEVO GTT STARTED AT .1 MCG/KG/MIN, CONTINUE TO MONITOR .
[2020-12-26] MEDS ORDERED: NOREPINEPHRINE 8 MG in IV NS 0.9% 242 ML IV PRN (14:00)
[2020-12-26] MEDS ORDERED: VANCOMYCIN 1 GM in IV D5W 250ml IV ONE (14:00)
[2020-12-26] MEDS ORDERED: IV NS 0.9% 500 ML IV ONE ×3 (14:23→14:31)
[2020-12-26] MEDS: SULFAMETHOXAZOLE/TRIMETHOPRIM 20 ML in IV D5W 500 ML IV SCH (15:29)
[2020-12-26 15:41] LABS: ABG BASE EXCESS -4.8 mmol/L; ABG OXYGEN SATURATION 58.5 % (92.0-98.5); ABG PCO2 63.9 mmHg (35.0-45.0); AaDO2 611.1 mmHg; COHb 1.7 % (0.5-1.5); MetHb 0.2 % (0.0-1.5); O2Hb 57.4 % (94.0-97.0); SITE, ABG Right Radial; VENT MODE, BG AC28 450100% +14
--- NOTE | 2020-12-26 16:30 | NUR ---
RN NOTES TUBE FEEDING FORMULA NOTED DURING ORAL SUCTIONING , RUBEN CARDONA, DONNA ORDER.
--- NOTE | 2020-12-26 16:47 | NUR ---
RN NOTES NGT ADVANCED PER MD ORDER AND X- RAY RESULTS. PLACEMENT VERIFIED WITH TWO RNS .
--- NOTE | 2020-12-26 18:26 | NUR ---
RN NOTES PT REMAINS INTUBATED AND SEDATED ,ON DIPRIVAN AT 25MCG/KG/MIN, LEVO GTT AT .5MCG/KG/MIN RUNNING FOR BP SUPPORT, UNABLE TO GET ACCURATE O2 SAT , TF STILL ON HOLD PER MD ORDER. IV SITES CLEAN, DRY AND INTACT, SR UP x3, CALL LIGHT WITHIN EASY REACH, BED LOCKED AND IN LOWEST POSITION, WILL ENDOSE TO LEASE PURCHASE TRUCK DRIVER NURSE FOR CONTINUITY OF CARE .
--- NOTE | 2020-12-26 19:35 | NUR ---
RN OPENING NOTES RECEIVED PT IN BED. SEDATED. ORALLY INTUBATED WITH MECHANICAL VENTILATION. SETTINGS 8/24CM AC 28 TV 450 FIO2 100% PEEP 12. NO S/S OF RESP DISTRESS OR SOB, PT TOLERATING SETTINGS. O2 SAT READS 60-70% ENDORSED BY AM NURSE IT IS HAS BEEN PT BASELINE, WITH A HR OF 118 ON TELE MONITOR, SINUS TACH BASELINE. PT IV SITES ANUPAMA MID AND RIGHT FEM, FLUSHED ASEPTICALLY. PT SEDATED WITH DIPRIVAN RUNNING AT 25MCG/KG/MIN. LEVOPHED RUNNING AT 0.5MCG/KG/MIN WILL TITRATE ORDERED. PT HAS RIGHT NGT, CLAMPED, AUSCULTATED FOR PLACEMENT, RESIDUAL OF 0 NOTED. RIGHT MED CHEST TUBE NOTED. PT HAS ENAMORADO CATH, DRAINING VIA GRAVITY. SAFETY MEASURES IN PLACE. HOB ELEVATED. SIDE RAILS UP X3. BED LOCKED IN LOWEST POSITION WITH BED ALARM ON. PT UNABLE TO USE CALL LIGHT HE IS SEDATED. WILL CONT TO MONITOR CLOSELY.
--- NOTE | 2020-12-26 20:16 | NUR ---
AXILLARY TEMP NOTED TO BE 100.1, PRN TYLENOL ADMINISTERED IN ADDITION TO COOLING MEASURES BEING APPLIED, COLD COMPRESS APPLIED TO HEAD AND ICE PACKS AXILLARY AND GROIN. WILL CONT TO CLOSELY MONITOR. Addendum: 12/26/20 at 2320 by STAR SMITH RN REASSESSED PT TEMP 98.3 WILL CONT TO MONITOR
[2020-12-26] MEDS ORDERED: ACETAMINOPHEN 650 MG/20.3 ML UDC NG PRN (20:30)
[2020-12-27] VITALS (94 sets, daily range): BP systolic 64–156; BP diastolic 38–118
[2020-12-27] MEDS ORDERED: NOREPINEPHRINE 8MG/250ML RTU 250 ML IV ONE ×2 (00:25→03:56)
[2020-12-27] MEDS: GUAIFENESIN 300 MG/15 ML UDC GT SCH ×5 (00:30→23:38)
[2020-12-27] MEDS: NOREPINEPHRINE 8 MG in IV NS 0.9% 242 ML IV PRN ×3 (01:49→10:18)
--- NOTE | 2020-12-27 02:19 | NUR ---
PT O2 SAT HAS BEEN INCREASING, READS 91% AT THIS TIME. BP IS WNL LEVO STILL RUNNING TO MAINTAIN SBP >90. WILL CONT TO CLOSELY MONITOR THROUGHOUT SHIFT.
[2020-12-27 04:44] LABS: BASOPHILS # (AUTO) 0.1 /CMM (0.0-0.2); BASOPHILS % (AUTO) 0.3 % (0.0-2.0); EOSINOPHILS % (AUTO) 0.1 % (0.0-6.0); HEMATOCRIT 29 % (39-51); LYMPHOCYTES # (AUTO) 0.7 /CMM (0.8-4.8); LYMPHOCYTES % (AUTO) 1.8 % (20.0-44.0); MEAN CORPUSCULAR HGB CONC 31 g/dl (31.0-36.0); MEAN CORPUSCULAR VOLUME 95 fL (80-96); MONOCYTES # (AUTO) 0.6 /CMM (0.1-1.30); MONOCYTES % (AUTO) 1.5 % (2.0-12.0); NEUTROPHILS # (AUTO) 37.4 /CMM (1.8-8.9); NEUTROPHILS % (AUTO) 96.3 % (43.0-81.0); PLATELET COUNT (AUTO) 563 /CMM (150-450); RED BLOOD CELL COUNT(AUTO) 3.05 MIL/uL (4.5-6.0)
[2020-12-27 04:51] LABS: CREATININE 4.7 mg/dL (0.6-1.3); POTASSIUM 4.5 mmol/L (3.5-5.1)
[2020-12-27 04:53] LABS: WHITE BLOOD COUNT (AUTO) 38.8 K/uL (4.3-11.0)
[2020-12-27] MEDS: PROPOFOL 100 ML IV PRN (05:12)
[2020-12-27 05:35] LABS: EOSINOPHILS % (MANUAL) 1 % (0-4); LYMPHOCYTES % (MANUAL) 2 % (16-48); MONOCYTES % (MANUAL) 2 % (0-11.0); NEUTROPHILS % (MANUAL) 95 (42-76)
--- NOTE | 2020-12-27 07:18 | NUR ---
RN NOTES RECEIVED PT SEDATED AND INTUBATED. MECHVENT SETTINGS OF AC 28, TV 450, FIO2 100%, PEEP 12. ST 110 ON TELE MONITOR. NGT ON RIGHT NARE, FEEDING HELD AT THIS TIME. ENAMORADO IN PLACE. RIGHT CHEST TUBE IN PLACE. ELIE MIDLINE AND LEFT FEMORAL HD CATHETER IN PLACE. PROPOFOL AT 35, AND LEVO AT 0.4. APPEARS COMFORTABLE AT THIS TIME. SAFETY MEASURES IN PLACE. WILL CONTINUE TO MONITOR.
--- NOTE | 2020-12-27 07:18 | NUR ---
RN CLOSING NOTES PT REMAINS IN BED. PT DID NOT TOLERATE BED BATH EARLIER, PARTIAL DONE. PT INCREASED BREATHING RATE, AT THIS TIME PT REMAINS ON SAME VENT SETTINGS. TOLERATING WELL. NO SOB NO RESP DISTRESS. PT RUNNING DIPRIVAN AT 35MCG AND LEVO AT 0.4MCG/KG/MIN. TITRATED ORDERED. WOUND TX DONE ORDERED. RESTRAINTS STILL ON. CIRCULATION AND SKIN CHECKED THROUGHOUT SHIFT. SAFETY MEASURES IN PLACE. SIDE RAILS UPX3, BED LOCKED IN LOWEST POSITION. ENDORSED TO AM NURSE FOR CONTINUATION OF CARE.
[2020-12-27 07:45] LABS: ABG BASE EXCESS -6.2 mmol/L; ABG OXYGEN SATURATION 91.3 % (92.0-98.5); ABG PCO2 66.8 mmHg (35.0-45.0); ABG PH 7.155 (7.350-7.450); ABG PO2 76.2 mmHg (75.0-100.0); COHb 1.3 % (0.5-1.5); MetHb 0.2 % (0.0-1.5); O2Hb 89.9 % (94.0-97.0); SITE, ABG Right Radial; VENT MODE, BG AC 28 450 100%+12
[2020-12-27] MEDS: PANTOPRAZOLE 40 MG/PACK PACK NG SCH (08:17)
[2020-12-27] MEDS: PROSOURCE / PROSTAT (PYXIS) 30 ML UDC GT SCH (08:17)
[2020-12-27] MEDS: QUETIAPINE FUMARATE 25 MG TABLET PO SCH ×2 (08:17→17:02)
[2020-12-27] MEDS: ASPIRIN 81 MG TAB.CHEW PO SCH (08:18)
--- NOTE | 2020-12-27 08:27 | NUR ---
Per RN, Pt. is unstable, CT CHEST W/O is on hold. Please call Radiology when ready.
--- NOTE | 2020-12-27 09:30 | NUR ---
CT CHEST W/O CONTRAST WITHHELD TODAY PER DR BURGER DUE TO PT INSTABILITY.
--- NOTE | 2020-12-27 10:17 | NUR ---
RT NOTE Increased set Tidal Volume to 480. RT will continue to monitor PT. Addendum: 12/27/20 at 1018 by PINEDA GRIFFIN RT Amended: Links added.
[2020-12-27] MEDS: IV NS 0.9% 250 ML IV PRN (10:45)
[2020-12-27] MEDS ORDERED: PROPOFOL 10MG/ML 50ML 50 ML IV PRN (11:00)
[2020-12-27] MEDS: ALBUMIN 25% 25 GM in PREMIX 1 EA IV PRN (11:20)
--- NOTE | 2020-12-27 11:59 | NUR ---
RECEIVED PT ON VENT, ET TUBE SIZE 8.[address] AND SECURED. SETTINGS AC 28, 450, 100% +12. PT SPO2 98%. AMBU-BAG AT BEDSIDE VENT PLUGGED INTO RED OUTLET. PT IS NOT RESPONSIVE ,PT IS SEDATED . RT WILL CONTINUE TO MONITOR. Addendum: 12/27/20 at 1203 by PINEDA GRIFFIN RT Amended: Links added.
[2020-12-27] MEDS: NOREPINEPHRINE 32 MG in IV NS 0.9% 218 ML IV PRN ×2 (13:55→22:17)
[2020-12-27] MEDS: PROPOFOL 10MG/ML 50ML 50 ML IV PRN ×4 (13:58→22:40)
[2020-12-27] MEDS: MEROPENEM 500 MG in IV NS 0.9% 50 ML IV SCH (14:00)
[2020-12-27] MEDS: SULFAMETHOXAZOLE/TRIMETHOPRIM 20 ML in IV D5W 500 ML IV SCH (16:04)
[2020-12-27] MEDS ORDERED: NOREPINEPHRINE 8 MG in IV NS 0.9% 242 ML IV PRN (17:30)
[2020-12-27] MEDS ORDERED: NOREPINEPHRINE 8 MG in IV NS 0.9% 250ML IV PRN (18:00)
--- NOTE | 2020-12-27 19:40 | NUR ---
RN OPENING NOTES RECEIVED PT IN BED. SEDATED. ORALLY INTUBATED ON MECHANICAL VENTILATION. TOLERATING SETTINGS NO SOB OR RESP DISTRESS NOTED. O2 SATURATION 96% AT THIS TIME. SETTINGS. ETT 8.0/24CM, AC 28 TV 480, FIO2 100% PEEP 12. PT ON TELE MONITORING PRESENTS WITH SINUS TACH, BASELINE TO PT HEART RATE IS 108 AT THIS TIME. IV SITES, RIGHT FEM AND ANUPAMA MIDLINE, FLUSHED ASEPTICALLY. PT HAS RIGHT NGT, CLAMPED. AUSCULTATED TO CONFIRM PLACEMENT. RESIDUAL 0, FLUSHED. PT HAS ENAMORADO CATH DRAINING VIA GRAVITY, ROS CLOUDY. PT IS ON DIPRIVAN AT 30MCG/KG/HR. AND LEVO 32MG CONCENTRATION RUNNING AT 0.2MCG/KG/MIN. WILL TITRATE ORDERED. SAFETY MEASURES IN PLACE. HOB ELEVATED. SIDE RAILS UP X2, BED LOCKED IN LOWEST POSITION WITH BED ALARM ON. PT BELONGINGS AT BEDSIDE. WILL CONT TO MONITOR CLOSELY.
[2020-12-28] VITALS (92 sets, daily range): BP systolic 62–154; BP diastolic 38–101
[2020-12-28] MEDS: PROPOFOL 10MG/ML 50ML 50 ML IV PRN ×2 (01:36→06:51)
--- NOTE | 2020-12-28 04:00 | NUR ---
FORGOT TO ADMINISTER DIPRIVAN ON EMAR, BARCODE UNABLE TO SCAN.
[2020-12-28 04:21] LABS: BASOPHILS # (AUTO) 0.2 /CMM (0.0-0.2); BASOPHILS % (AUTO) 0.5 % (0.0-2.0); EOSINOPHILS % (AUTO) 1.1 % (0.0-6.0); HEMATOCRIT 27 % (39-51); HEMOGLOBIN 8.6 g/dL (13.5-17.5); LYMPHOCYTES # (AUTO) 0.8 /CMM (0.8-4.8); LYMPHOCYTES % (AUTO) 2.2 % (20.0-44.0); MEAN CORPUSCULAR HGB CONC 32 g/dl (31.0-36.0); MEAN CORPUSCULAR VOLUME 94 fL (80-96); MONOCYTES # (AUTO) 0.9 /CMM (0.1-1.30); MONOCYTES % (AUTO) 2.6 % (2.0-12.0); NEUTROPHILS # (AUTO) 32.6 /CMM (1.8-8.9); NEUTROPHILS % (AUTO) 93.6 % (43.0-81.0); PLATELET COUNT (AUTO) 444 /CMM (150-450); RED BLOOD CELL COUNT(AUTO) 2.85 MIL/uL (4.5-6.0)
[2020-12-28 04:29] LABS: WHITE BLOOD COUNT (AUTO) 34.8 K/uL (4.3-11.0)
[2020-12-28 04:39] LABS: CALCIUM, SERUM 7.8 mg/dL (8.5-10.1); CREATININE 4.5 mg/dL (0.6-1.3); POTASSIUM 4.8 mmol/L (3.5-5.1)
[2020-12-28 04:55] LABS: EOSINOPHILS % (MANUAL) 3 % (0-4); LYMPHOCYTES % (MANUAL) 3 % (16-48); MONOCYTES % (MANUAL) 4 % (0-11.0); NEUTROPHILS % (MANUAL) 90 (42-76)
[2020-12-28] MEDS: GUAIFENESIN 300 MG/15 ML UDC GT SCH ×3 (05:26→17:45)
--- NOTE | 2020-12-28 06:26 | NUR ---
RN CLOSING NOTES NO SIGNIFICANT CHANGES IN PT CONDITION. NEW VENT SETTINGS, AC 28 TV 480 FIO2 70% PEEP 12, PT TOLERATING WELL. NO SOB OR RESP DISTRESS. SATURATION 99% AT THIS TIME. BED BATH DONE. WOUND CARE DONE ORDERED. REPOSITIONED Q2H. ALL DUE MEDICATIONS GIVEN. PT RESTING COMFORTABLY ON DIPRIVAN AT 40MCG AND LEVO AT 0.4MCG. SAFETY MEASURES IN PLACE HOB ELEVATED. SIDE RAILS UP X3 BED LOCKED IN LOWEST POSITION. WILL ENDORSE TO AM NURSE FOR CONTINUATION OF CARE.
[2020-12-28 07:45] LABS: ABG BASE EXCESS -3.6 mmol/L; ABG OXYGEN SATURATION 98.2 % (92.0-98.5); ABG PH 7.336 (7.350-7.450); ABG PO2 132.7 mmHg (75.0-100.0); AaDO2 321.3 mmHg; COHb 1.2 % (0.5-1.5); MetHb 0.6 % (0.0-1.5); O2Hb 96.4 % (94.0-97.0); SITE, ABG Right Radial
--- NOTE | 2020-12-28 08:00 | NUR ---
ICU/RN PT IS INTUBATED AND SEDATED.ON DIPRIVAN DRIP.ON LEVOPHED DRIP.AFEBRILE.REACTIVE ON PAIN STIMULATION.HAS A LOT OF SECRETION.ANURIC ON HD .GENERELISED EDEMA PRESENT.HAS BILATERAL FEET WOUNDS.LEFT FOOT GANGREEN NO BLOOD CIRCULATION, NO PULSES.NG TUBE CLAMPED. LABS REVIEW. NOTIFIED.
[2020-12-28] MEDS: PANTOPRAZOLE 40 MG/PACK PACK NG SCH (08:20)
[2020-12-28] MEDS: QUETIAPINE FUMARATE 25 MG TABLET PO SCH ×2 (08:20→17:45)
[2020-12-28] MEDS: ASPIRIN 81 MG TAB.CHEW PO SCH (08:20)
[2020-12-28] MEDS: PROSOURCE / PROSTAT (PYXIS) 30 ML UDC GT SCH (08:20)
[2020-12-28] MEDS ORDERED: PRECEDEX 400 MCG/100 ML BOTTLE 100 ML IV PRN (08:30)
--- NOTE | 2020-12-28 09:00 | NUR ---
ICU/RN DUE MEDS ARE GIVEN ORDERED.ABG DONE.MD NOTIFIED.NEW ORDERS RECIEVED.
[2020-12-28] MEDS: NOREPINEPHRINE 32 MG in IV NS 0.9% 218 ML IV PRN (09:53)
--- NOTE | 2020-12-28 12:00 | NUR ---
ICU/RN SEDATION VACATION PROVIDED.DIPRIVAN STOP.PT HAS HIGH TRYGLICERIDES LEVEL .PRECEDEX STARTED ORDERED. CONTINUE TO MONITOR.
[2020-12-28] MEDS: ALBUMIN 25% 25 GM in PREMIX 1 EA IV PRN (12:08)
[2020-12-28] MEDS: NEPRO 1,000 ML BOTTLE GT PRN (12:08)
[2020-12-28] MEDS: PRECEDEX 400 MCG/100 ML BOTTLE 100 ML IV PRN ×3 (12:11→22:14)
[2020-12-28] MEDS: MEROPENEM 500 MG in IV NS 0.9% 50 ML IV SCH (14:27)
[2020-12-28] MEDS: SULFAMETHOXAZOLE/TRIMETHOPRIM 20 ML in IV D5W 500 ML IV SCH (15:52)
[2020-12-28] MEDS: IV NS 0.9% 500 ML IV PRN (17:46)
--- NOTE | 2020-12-28 18:00 | NUR ---
ICU/RN PM CARE PROVIDED.WOUND DRESSING DONE ORDERED. DUE MEDS ARE GIVEN .PT HAD HD-1.5L OUT. ALBUMIN DURING HD WAS GIVEN. CONTINUE TO MONITOR.
[2020-12-28] MEDS: HYDROMORPHONE 1 MG/1 ML DISP.SYRIN IV PRN (22:57)
[2020-12-29] VITALS (98 sets, daily range): BP systolic 69–158; BP diastolic 49–113
[2020-12-29] MEDS: GUAIFENESIN 300 MG/15 ML UDC GT SCH ×4 (00:12→17:20)
[2020-12-29] MEDS: PRECEDEX 400 MCG/100 ML BOTTLE 100 ML IV PRN ×5 (03:54→20:56)
[2020-12-29] MEDS: LORAZEPAM INJ 2 MG/ML VIAL IV PRN ×2 (05:23→22:22)
--- NOTE | 2020-12-29 06:00 | NUR ---
RN NOTES PATIENT REMAINED IN THE SAME CONDITION. NO SIGNIFICANT CHANGES THROUGHOUT THE SHIFT. AFEBRILE. VENT SETTING THE SAME AC 28 TV 480 FIO2 60% PEEP 10 TOLERATED WELL. PATIETN REMAINED SEDATED WITH PRECEDEX TOLERATED WELL. ONE TIME DILAUDID AND ATIVAN ADMINISTERED ORDERED NEEDED. KEPT PT CLEAN AND DRY. ALL DUE MEDS TOLERATED WELL. ENDORSED CONTINUITY OF CARE TO AM NURSE.
--- NOTE | 2020-12-29 07:15 | NUR ---
ICU/RN PT IS INTUBATED ON THE VENT AC MODE.FIO2-60%,PEEP-10.SAT O2-96%.ON PRECEDEX DRIP AT 1MCG//KG/MIN.AWAKE,OPEN EYES,AGITATED ,NOT FOLLOWS COMMAND.BILATERAL WRIST RESTRAINS ON. ON LEVOPHED DRIP.NG TUBE INFUSING WITH NEPRO. F/C DRAINING WITH MINIMAL URINE OUTPUT.PT IS ESRD ON HD.GENERELIZED EDEMA PRESENT.BILATERAL FEET WOUNDS COVERED WITH DRESSING.SUCTION PROVIDED.DILAUDID IV GIVEN ORDERED.PRECEDEX INCREASED.CONTINUE TO MONITOR.
[2020-12-29] MEDS: HYDROMORPHONE 1 MG/1 ML DISP.SYRIN IV PRN ×4 (07:32→22:43)
[2020-12-29] MEDS: NOREPINEPHRINE 32 MG in IV NS 0.9% 218 ML IV PRN (07:51)
[2020-12-29] MEDS: ASPIRIN 81 MG TAB.CHEW PO SCH (08:09)
[2020-12-29] MEDS: PROSOURCE / PROSTAT (PYXIS) 30 ML UDC GT SCH (08:09)
[2020-12-29] MEDS: PANTOPRAZOLE 40 MG/PACK PACK NG SCH (08:09)
[2020-12-29] MEDS: QUETIAPINE FUMARATE 25 MG TABLET PO SCH ×2 (08:09→17:19)
[2020-12-29 08:28] LABS: ABG BASE EXCESS -2.2 mmol/L; ABG OXYGEN SATURATION 96.6 % (92.0-98.5); ABG PCO2 35.9 mmHg (35.0-45.0); ABG PH 7.408 (7.350-7.450); ABG PO2 97.5 mmHg (75.0-100.0); AaDO2 290.8 mmHg; COHb 2.3 % (0.5-1.5); MetHb 0.2 % (0.0-1.5); O2Hb 94.2 % (94.0-97.0); PEEP,BG 10 cm H2O; SITE, ABG Left Radial; VT, ABG 480 mL
--- NOTE | 2020-12-29 09:00 | NUR ---
ICU/RN DUE MEDS ARE GIVEN ORDERED.
[2020-12-29] MEDS: NEPRO 1,000 ML BOTTLE GT PRN (11:52)
[2020-12-29] MEDS: IV NS 0.9% 500 ML IV PRN (12:01)
[2020-12-29] MEDS: MEROPENEM 500 MG in IV NS 0.9% 50 ML IV SCH (13:09)
[2020-12-29] MEDS: SULFAMETHOXAZOLE/TRIMETHOPRIM 20 ML in IV D5W 500 ML IV SCH (16:09)
--- NOTE | 2020-12-29 17:36 | NUR ---
icu/rn pm care provided.wound dressing done as ordered.due meds are given suction provided.reposition for comfort.
--- NOTE | 2020-12-29 19:40 | NUR ---
RECEIVED PT ORALLY INTUBATED WITH 8.0 ETT SECURED AT 24CM LIP LINE ON VENT WITH THE SETTINGS OF AC 28, VT 480, PEEP 5 , FIO2 60%. SX'D DONE. VENT ALARMS SET AND AUDIBLE. ETT CUFF CHECKED. VENT PLUGGED INTO RED OUTLET. WILL CONTINUE TO MONITOR PT T/O SHIFT.
--- NOTE | 2020-12-29 20:00 | NUR ---
SALES MERCHANDISER DANIEL SEDATION AGITATION SCALE PRECEDEX SEDATED
--- NOTE | 2020-12-29 22:46 | NUR ---
RN NOTES PATIENT IS AGITATED, ATIVAN ADMINISTERED AND REMAINED SEDATED HR WENT UP TO 120'S PRN DILAUDID GIVEN PATIENT GRIMACE WHEN LEGS ELEVATED, STARTED TO CALM DOWN. VSS.
[2020-12-30] VITALS (81 sets, daily range): BP systolic 71–180; BP diastolic 38–113
[2020-12-30] MEDS: GUAIFENESIN 300 MG/15 ML UDC GT SCH ×3 (00:14→11:02)
[2020-12-30] MEDS: PRECEDEX 400 MCG/100 ML BOTTLE 100 ML IV PRN ×3 (00:20→08:50)
[2020-12-30] MEDS: HYDROMORPHONE 1 MG/1 ML DISP.SYRIN IV PRN (02:50)
--- NOTE | 2020-12-30 02:50 | NUR ---
RN NOTES BED BATH DONE AND TOLERATED WELL. PATIENT STARTED TO GET AGITATED PRN PAIN MEDICINE ADMINISTERED ORDERED ISMA TO PT GRIMACING WHILE DOING BATH AND TREATMENT ON LEFT FOOT. STARTED TO CALM DOWN AFTER MEDS. WILL CONTINUE TO MONITOR.
--- NOTE | 2020-12-30 06:59 | NUR ---
RN NOTES NO SIGNIFICANT CHANGES THROUGHOUT THE SHIFT. ETT AND VENT SETTING TOLERATED WELL. NGTF KEPT IN PLACED REMAINED SEDATED BUT STILL EPISODE OF AGITATION PRN PAIN MEDICINE EFFECTIVE. RIGHT CHEST TUBE INTACT. NO OUTPUT. REMAINED SR/ST ON TELE MONITOR. KEPTPT CLEAN AND DRY. F/C KEPT OFF FROM THE FLOOR. WILL CONTINUE TO MONITOR.
--- NOTE | 2020-12-30 07:00 | NUR ---
RN NOTES RECIVED PT ON BED ORALLY INTUBATED AND SEDATED, TOLERATING VENT SETTING WELL, O2 SAT WNL, ON PRECEDEX AT 1 AND LEVO AT .1 FOR BP SUPPORT , ON TELE SR HR IN 70'S , IV SITES, CLEAN ,DRY AND INTACT, TF AT 30CC/HR RUNNING , NO RESIDUAL NOTED , ENAMORADO INTACT WITH SMALL AMOUNT OF URINE, SR UP x3, CALL LIGHT WITHIN EASY REACH, BED LOCKED AND IN LOWEST POSITION, CONTINUE TO MONITOR.
--- NOTE | 2020-12-30 08:32 | NUR ---
RN NOTES PT REINTUBATED DUE TO CUFF MALFUNCTION BY ER MD, CONTINUE TO MONITOR
--- NOTE | 2020-12-30 08:35 | NUR ---
PT REINTUBATED BY ER MD WITH 7.5 ET-TUBE DUE TO CUFF MALFUNCTION. TUBE SECURED AT 24CM. POSITIVE CO2 EXCHANGE DETECTED. B/S EQUAL. PT PLACED ON PREVIOUS SETTINGS ALARMS SET AND AUDIBLE. LARGE PALE YELLOW SPUTUM. VENT PLUGGED INTO RED OULET
[2020-12-30] MEDS: PROSOURCE / PROSTAT (PYXIS) 30 ML UDC GT SCH (08:49)
[2020-12-30] MEDS: PANTOPRAZOLE 40 MG/PACK PACK NG SCH (08:49)
[2020-12-30] MEDS: QUETIAPINE FUMARATE 25 MG TABLET PO SCH (08:49)
[2020-12-30] MEDS: ASPIRIN 81 MG TAB.CHEW PO SCH (08:49)
[2020-12-30] MEDS ORDERED: MORPHINE SULFATE/PF 30 MG in IV NS 0.9% 27 ML, PCA TOTAL VOLUME 1 BAG IV PRN (09:00)
[2020-12-30] MEDS ORDERED: MORPHINE SULFATE INJ 2 MG/ML DISP.SYRIN IV PRN (09:30)
[2020-12-30] MEDS: NOREPINEPHRINE 32 MG in IV NS 0.9% 218 ML IV PRN (10:28)
[2020-12-30] MEDS ORDERED: PROPOFOL 200 MG/20 ML VIAL IV ONE (11:16)
[2020-12-30] MEDS: MORPHINE SULFATE PF DRIP 250 MG in IV D5W 240 ML IV PRN ×2 (12:10→23:54)
--- NOTE | 2020-12-30 12:10 | NUR ---
RN NOTES PT IS RESTLESS AND AGITATED , DOES NOT FOLLOW COMMAND, MORPHINE GTT STARTED PER DR BURGER AND STENOGRAPHIC COURT REPORTER ORDER , PT IS ON COMFORT CARE . CONTINUE TO MONITOR
[2020-12-30] MEDS: LORAZEPAM INJ 2 MG/ML VIAL IV PRN (13:25)
[2020-12-30] MEDS: NEPRO 1,000 ML BOTTLE GT PRN (16:10)
--- NOTE | 2020-12-30 18:00 | NUR ---
RN NOTES PT REMAINS INTUBATED , ON COMFORT CARE, MORPHINE DRIP AT 25 MG/HR RUNNING , PT IS RESTLESS AT TIMES. ON TELE SR -ST , IV SITES CLEAN, DRY AND INTACT, ENAMORADO DRAINING WITH SMALL AMOUNT OF URINE, SR UP X3, CALL LIGHT WITHIN EASY REACH, WILL ENDORSE TO CALL OR CONTACT CENTRE TEAM LEADER NURSE FOR CONTINUITY OF COMFORT CARE.
--- NOTE | 2020-12-30 19:30 | NUR ---
RN NOTES RECEIVED PATIENT ORALLY INTUBATED WITH ETT 7.5 AND 24 CM AT LIPLINE. WITH VENT SETTING AC 28, TV 480 FIO2 60% AND PEEP 5SATURATION 93%. AFEBRILE. PT ON COMFORT CARE ONLY. ON MORPHINE DRIP RECEIVED AT 25 MG/HR. PT IS ASLEEP AT THIS TIME. IV SITE ON LEFT FEMORAL HD WITH PIGTAIL AND ELIE MIDLINE INTACT AND PATENT. PATIENT CONTINUE WITH RIGHT CHEST TUBE CONNECTED TO SUCTION. ENAMORADO CATH REMAINED INTACT AND PATENT. KEPT PT CLEAN AND COMFORTABLE.
[2020-12-31] VITALS (23 sets, daily range): BP systolic 45–97; BP diastolic 28–64
--- NOTE | 2020-12-31 07:00 | NUR ---
RN NOTES NO SIGNIFICANT CHANGES CONTINUE ON MORPHINE DRIP. PATIENT REMAINED CALMED. BEDBATH DONE WOUND DRESSING PROVIDED. HYPOTENSIVE , NSR ON TELE MONITOR. SATURATION REMAINED >92%. ENDORSED CONTINUITY OF CARE.
--- NOTE | 2020-12-31 07:05 | NUR ---
RN NOTES RECEIVED PATIENT ON BED, ORALLY INTUBATED WITH ETT 7.5 AND 24 CM AT [place]. WITH VENT SETTING AC 28, TV 480 FIO2 60% AND PEEP 5 SATURATION IN LOW 90'S , PT ON COMFORT CARE ONLY. ON MORPHINE DRIP RECEIVED AT 25 MG/HR. PT IS ASLEEP AT THIS TIME. IV SITE ON LEFT FEMORAL HD WITH PIGTAIL AND ELIE MIDLINE INTACT AND PATENT. PATIENT CONTINUE WITH RIGHT CHEST TUBE CONNECTED TO SUCTION. ENAMORADO CATH REMAINED INTACT AND PATENT WITH SMALL AMOUNT OF RUNE, CONTINUE COMFORTABLE CARE ,
[2020-12-31] MEDS: MORPHINE SULFATE PF DRIP 250 MG in IV D5W 240 ML IV PRN ×2 (10:21→21:03)
[2020-12-31] MEDS ORDERED: LORAZEPAM INJ 2 MG/ML VIAL IV PRN (14:00)
--- NOTE | 2020-12-31 18:18 | NUR ---
RN NOTES NO SIGNIFICANT CHANGES NOTED ON THIS SHIFT, PT REMANINS ON COMFORT CARE, ON MORPHINE DRIP AT 25MG/HR, O2 SAT WNL, LOW BP THROUGHOUT THE SHIFT , HR IN 90'S , WILL ENDORSE TO GROUP LEADER SEMICONDUCTOR TESTING NURSE FOR CONTINUITY OF COMFORT CARE .
--- NOTE | 2020-12-31 19:27 | NUR ---
TRANSITIONS RN CARE COORDINATOR OPENING NOTES: Rec'd pt in bed, on comfort measures. SR on tele monitor. Intubated 8/24cm at the lip, tolerating vent settings well. ELIE midline in place w/ morphine drip infusing at 25mg/hr. Right chest and landry catheter in place. Safety measures in place. Will continue to monitor.
--- NOTE | 2020-12-31 19:45 | NUR ---
GEOTHERMAL PRODUCTION MANAGER NOTE: Charge nurse Ed spoke w/ seasoning sprayer Andrey Teran NP to change frequency and dose of pt's Ativan to 2mg Q1H as pt is comfort measures. Andrey agreed. Charge nurse placed new ordered.
[2020-12-31] MEDS: LORAZEPAM INJ 2 MG/ML VIAL IV PRN ×3 (20:01→22:05)
--- NOTE | 2020-12-31 20:16 | NUR ---
rt note RECEIVED PT ON VENT,WITH CHARTED SETTINGS. ETT IN PLACE AND SECURED AMBU-BAG AT BEDSIDE VENT PLUGGED INTO RED OUTLET. PT IS NOT RESPONSIVE ,PT IS SEDATED . VENT ALARMS ON AND AUDIBLE. RT WILL CONTINUE TO MONITOR.
--- NOTE | 2020-12-31 23:57 | NUR ---
OFFAL ROLLER NOTE: Pt asystole at 2259. Prounounced by charge nurse Ed. Post mortem care done. teaseler Andrey Teran paged and made aware. RN power plant operators supervisor and admitted also made aware. [employer] called, spoke w/ Gale Mora, ref# [id number], body ok to be released.
== END 2020-12-31 22:59 | disposition expired | DRG 710 ==
LOC: ER 13:36 → TELE1 18:28 → ICU 12-03 13:51
PROVIDERS: ADMIT Nurse Practitioner Acute Care; ATTEND Nurse Practitioner Acute Care
PROC: 02HV33Z Insertion of Infusion Device into Superior Vena Cava, Percutaneous Approach (ICD-10-PCS; 2020-11-28)
PROC: B548ZZA Ultrasonography of Superior Vena Cava, Guidance (ICD-10-PCS; 2020-11-28)
PROC: 04CS3ZZ Extirpation of Matter from Left Posterior Tibial Artery, Percutaneous Approach (ICD-10-PCS; principal; 2020-12-03)
PROC: B41DYZZ Fluoroscopy of Aorta and Bilateral Lower Extremity Arteries using Other Contrast (ICD-10-PCS; 2020-12-03)
PROC: 5A1955Z Respiratory Ventilation, Greater than 96 Consecutive Hours (ICD-10-PCS; 2020-12-03)
PROC: 0BH18EZ Insertion of Endotracheal Airway into Trachea, Via Natural or Artificial Opening Endoscopic (ICD-10-PCS; 2020-12-03)
PROC: 06HY33Z Insertion of Infusion Device into Lower Vein, Percutaneous Approach (ICD-10-PCS; 2020-12-05)
PROC: 0B21XFZ Change Tracheostomy Device in Trachea, External Approach (ICD-10-PCS; 2020-12-07)
PROC: 30233N1 Transfusion of Nonautologous Red Blood Cells into Peripheral Vein, Percutaneous Approach (ICD-10-PCS; 2020-12-08)
PROC: 05H633Z Insertion of Infusion Device into Left Subclavian Vein, Percutaneous Approach (ICD-10-PCS; 2020-12-10)
PROC: B547ZZA Ultrasonography of Left Subclavian Vein, Guidance (ICD-10-PCS; 2020-12-10)
PROC: 0W993ZZ Drainage of Right Pleural Cavity, Percutaneous Approach (ICD-10-PCS; 2020-12-13)
PROC: 0B9N30Z Drainage of Right Pleura with Drainage Device, Percutaneous Approach (ICD-10-PCS; 2020-12-20)
PROC: 0B21XFZ Change Tracheostomy Device in Trachea, External Approach (ICD-10-PCS; 2020-12-30)
DX: A41.89 Other specified sepsis (principal); U07.1 COVID-19; J12.82 Pneumonia due to coronavirus disease 2019; J96.01 Acute respiratory failure with hypoxia; I21.4 Non-ST elevation (NSTEMI) myocardial infarction; G92 Toxic encephalopathy; N17.0 Acute kidney failure with tubular necrosis; I96 Gangrene, not elsewhere classified; E87.2 Acidosis; E83.51 Hypocalcemia; M19.90 Unspecified osteoarthritis, unspecified site; R18.8 Other ascites; E44.0 Moderate protein-calorie malnutrition; I70.201 Unspecified atherosclerosis of native arteries of extremities, right leg; I50.22 Chronic systolic (congestive) heart failure; D69.6 Thrombocytopenia, unspecified; E87.1 Hypo-osmolality and hyponatremia; E87.5 Hyperkalemia; F29 Unspecified psychosis not due to a substance or known physiological condition; I13.0 Hypertensive heart and chronic kidney disease with heart failure and stage 1 through stage 4 chronic kidney disease, or unspecified chronic kidney disease; I25.10 Atherosclerotic heart disease of native coronary artery without angina pectoris; E87.6 Hypokalemia; I27.20 Pulmonary hypertension, unspecified; N18.9 Chronic kidney disease, unspecified; N50.89 Other specified disorders of the male genital organs; R13.10 Dysphagia, unspecified; Z51.5 Encounter for palliative care; Z59.0 Homelessness; M62.82 Rhabdomyolysis; M89.9 Disorder of bone, unspecified; I42.9 Cardiomyopathy, unspecified; R65.21 Severe sepsis with septic shock; R74.01 Elevation of levels of liver transaminase levels; K72.00 Acute and subacute hepatic failure without coma; S90.122A Contusion of left lesser toe(s) without damage to nail, initial encounter; S90.121A Contusion of right lesser toe(s) without damage to nail, initial encounter; E11.52 Type 2 diabetes mellitus with diabetic peripheral angiopathy with gangrene; I77.1 Stricture of artery; Z68.24 Body mass index [BMI] 24.0-24.9, adult; I74.3 Embolism and thrombosis of arteries of the lower extremities; S27.0XXA Traumatic pneumothorax, initial encounter; X58.XXXA Exposure to other specified factors, initial encounter; Y93.9 Activity, unspecified; Y92.230 Patient room in hospital as the place of occurrence of the external cause; E88.09 Other disorders of plasma-protein metabolism, not elsewhere classified; J98.11 Atelectasis; I99.8 Other disorder of circulatory system; J94.2 Hemothorax; E78.1 Pure hyperglyceridemia; F10.10 Alcohol abuse, uncomplicated; J90 Pleural effusion, not elsewhere classified; F17.210 Nicotine dependence, cigarettes, uncomplicated
CPT/HCPCS: 31720; 36415; 36569; 36600; 36620; 37184; 37225; 71045-TC; 71250-TC; 73610-TC; 73630-TC; 74018; 75625; 75630-TC; 75989-TC; 76604-TC; 76770-TC; 76856-TC; 76870-TC; 80048-TC; 80053-TC; 80061-TC; 80076-TC; 80202-TC; 81001; 82533; 82550-TC; 82553; 82728-TC; 82803-TC; 82962-TC; 83021; 83605-TC; 83615-TC; 83735-TC; 83880; 84100-TC; 84443-TC; 84478-TC; 84484-TC; 85025-TC; 85027-TC; 85378-TC; 85385-TC; 85610-TC; 85660; 85730-TC; 86140-TC; 86480; 86704; 86705; 86706; 86803; 86850-TC; 87040-TC; 87070-TC; 87075-TC; 87081-TC; 87086-TC; 87102-TC; 87116; 87186-TC; 87206; 87340; 87899; 88108-TC; 88305-TC; 88312-TC; 89051-TC; 90935-TC; 92526; 92611-TC; 93307-TC; 93970-TC; 94002-TC; 94003-TC; 94760-TC; 94799-TC; A4216; A6253; A6403; C1725; C1750; C1751; C1757; C1769; C1887; C1894; C9113; C9803; G0378; J0171; J0330; J0692; J1100; J1170; J1630; J1644; J1720; J1815; J2020; J2060; J2185; J2250; J2270; J2274; J2405; J2543; J2704; J2997; J3010; J3370; J3480; J3490; J7030; J7040; J7050; J7060; P9016-BL; P9047; Q9967; U0003